=== PATIENT | male | born 1955 | race Caucasian/White ===

== ENCOUNTER 2018-12-28 17:27 | Inpatient (IN) | payer MEDICARE, OTHER ==
[~2018-12-28] VITALS: Ht 177.8 cm; Wt 78.3 kg
[~2018-12-28 17:27] MED LIST: AMLO5TAB21 PO; ASPI-1264 PO; ATOR40TA PO; CLOP75TA35 PO; DEXL60CA3 PO; LISI-600 PO; METO50TA16 PO; MULT-964 PO; SERT-153 PO
[2018-12-28] MEDS ORDERED: LORazepam 1 MG tablet PO ONE ×2 (18:00)
[2018-12-28 18:04] LABS: D-DIMER 0.49 MG/L FEU (0-0.50)
[2018-12-28 18:07] LABS: ALANINE AMINOTRANSFERASE 28 U/L (12-78); ALBUMIN 3.7 G/DL (3.4-5.0); ALBUMIN/GLOBULIN RATIO 0.9 (1.1-1.5); ALKALINE PHOSPHATASE 95 IU/L (46-116); ANION GAP 14 (8-16); ASPARTATE AMINO TRANSFERASE 25 U/L (10-37); BILIRUBIN,TOTAL 0.9 MG/DL (0.1-1.0); BLOOD UREA NITROGEN 22 MG/DL (7-18); CALCIUM 6.3 MG/DL (8.5-10.1); CHLORIDE 102 MMOL/L (99-107); CREATININE 1.57 MG/DL (0.60-1.10); GLUCOSE 109 MG/DL (70-104); POTASSIUM 3.1 MMOL/L (3.5-5.1); SODIUM 144 MMOL/L (135-145); TOTAL CARBON DIOXIDE 28.1 MMOL/L (24-32); TOTAL PROTEIN 7.7 G/DL (6.4-8.2); eGFR 45 ML/MIN
[2018-12-28 18:09] LABS: BASOPHILS # (AUTO) 0.1 X10'3 (0-0.2); BASOPHILS % (AUTO) 1.3 % (0-1); EOSINOPHILS # (AUTO) 0.2 X10'3 (0-0.9); EOSINOPHILS % (AUTO) 1.5 % (0-6); HEMATOCRIT 36.5 % (42.0-52.0); HEMOGLOBIN 12.3 g/dl (14.0-17.9); LYMPHOCYTES # (AUTO) 2.8 X10'3 (1.1-4.8); LYMPHOCYTES % (AUTO) 27.4 % (21-51); MEAN CORPUSCULAR HEMOGLOBIN 28.6 PG (27.0-31.0); MEAN CORPUSCULAR HGB CONC 33.8 g/dL (33.0-36.5); MEAN CORPUSCULAR VOLUME 84.7 FL (78-98); MEAN PLATELET VOLUME 8.3 FL (7.4-10.4); MONOCYTES # (AUTO) 0.7 X10'3 (0-0.9); MONOCYTES % (AUTO) 6.9 % (2-12); NEUTROPHILS # (AUTO) 6.4 X10'3 (1.8-7.7); NEUTROPHILS % (AUTO) 62.9 % (42-75); PLATELET COUNT 313 X10'3 (140-440); RED BLOOD COUNT 4.31 X10'6 (4.70-6.10); RED CELL DISTRIBUTION WIDTH 17.4 % (11.5-14.5); WHITE BLOOD COUNT 10.2 X10'3 (4.5-11.0)
[2018-12-28 18:20] LABS: MAGNESIUM 0.5 MG/DL (1.5-2.4)
[2018-12-28] MEDS ORDERED: magnesium 4gm in 100ml NS 100 ML IV ONE (18:25)
[2018-12-28 19:11] LABS: PHOSPHORUS 5.6 MG/DL (2.3-4.5)
[2018-12-28] MEDS ORDERED: nitroGLYCERIN 0.4mg/hour patch TD ONE (19:35)
[2018-12-28] MEDS ORDERED: magnesium Cl slow-release 64mg tablet PO PRN (21:30)
[2018-12-28] MEDS ORDERED: magnesium hydroxide 30ml (MOM) UD suspension PO PRN (21:30)
[2018-12-28] MEDS ORDERED: potassium Cl 20 mEq SR tablet PO PRN (21:30)
[2018-12-28] MEDS ORDERED: potassium CL 10mEq/100ml bag 100 ML IV PRN ×2 (21:30)
[2018-12-28] MEDS ORDERED: mag hydrox/Alum hydrox/simeth 30ml oral suspension PO PRN (21:30)
[2018-12-28] MEDS ORDERED: acetaminophen 325mg tablet PO PRN ×2 (21:30)
[2018-12-28] MEDS ORDERED: magnesium 2GM in 50ml NS 50 ML IV PRN (21:30)
[2018-12-28] MEDS ORDERED: magnesium 4gm in 100ml NS 100 ML IV PRN (21:30)
[2018-12-28] MEDS ORDERED: ondansetron/PF 4mg/2ml inj IV PRN (21:30)
[2018-12-28] MEDS: potassium Cl 20 mEq SR tablet PO PRN (22:05)
[2018-12-28] MEDS: furosemide 20 MG/2 ML vial IV SCH (22:05)
[2018-12-28] MEDS ORDERED: APIX5TAB3 PO (22:39)
[2018-12-28] MEDS ORDERED: NITR0.4T51 SL (22:39)
[2018-12-28] MEDS ORDERED: ASPI-1265 PO (22:39)
[2018-12-28] MEDS ORDERED: CYCL-394 PO (22:39)
[2018-12-28] MEDS ORDERED: MELO-102 PO (22:39)
[2018-12-28] MEDS ORDERED: LOSA25TA96 PO (22:39)
[2018-12-28] MEDS ORDERED: ESOM40CA49 PO (22:39)
[2018-12-28 23:00] VITALS: BP 155/94
--- NOTE | 2018-12-28 23:00 | NUR ---
Patient in room PCU 3013. I have received report from Xuan DAVILA from ER and had the opportunity to ask questions and assume patient care; patient was brought up shortly after. All patient belongings in closet. Pocket knife was sent to [facility] safe, kaufman sent to the safe. Patient is comfortable in bed. Will continue to monitor.
--- NOTE | 2018-12-29 | NUR ---
Wound care and cloud services architect Consultations have been ordered. Non blanchable buttock cheeks have been pictured and placed in patient chart. Patient states he needs more services at home with meals, ADLs, and cooking. Also stating he may need transportation home for discharge.
[2018-12-29 00:07] LABS: MAGNESIUM 1.7 MG/DL (1.5-2.4)
[2018-12-29 02:00] VITALS: BP 137/79
[2018-12-29] MEDS: potassium Cl 20 mEq SR tablet PO PRN ×2 (02:15→07:29)
[2018-12-29 05:56] LABS: BASOPHILS # (AUTO) 0.1 X10'3 (0-0.2); BASOPHILS % (AUTO) 1.4 % (0-1); EOSINOPHILS # (AUTO) 0.2 X10'3 (0-0.9); EOSINOPHILS % (AUTO) 1.8 % (0-6); HEMATOCRIT 32.1 % (42.0-52.0); HEMOGLOBIN 10.9 g/dl (14.0-17.9); LYMPHOCYTES # (AUTO) 1.5 X10'3 (1.1-4.8); LYMPHOCYTES % (AUTO) 16.7 % (21-51); MEAN CORPUSCULAR HEMOGLOBIN 28.6 PG (27.0-31.0); MEAN CORPUSCULAR HGB CONC 34.1 g/dL (33.0-36.5); MEAN PLATELET VOLUME 8.2 FL (7.4-10.4); MONOCYTES # (AUTO) 0.7 X10'3 (0-0.9); MONOCYTES % (AUTO) 7.5 % (2-12); NEUTROPHILS # (AUTO) 6.6 X10'3 (1.8-7.7); NEUTROPHILS % (AUTO) 72.6 % (42-75); PLATELET COUNT 284 X10'3 (140-440); RED BLOOD COUNT 3.82 X10'6 (4.70-6.10); RED CELL DISTRIBUTION WIDTH 17.2 % (11.5-14.5); WHITE BLOOD COUNT 9.1 X10'3 (4.5-11.0)
[2018-12-29 06:00] VITALS: BP 123/77
--- NOTE | 2018-12-29 06:00 | NUR ---
Patient in room PCU 3013. I have received report from GIOVANNI Castillo and had the opportunity to ask questions and assume patient care.
[2018-12-29 06:05] LABS: ALBUMIN 3.2 G/DL (3.4-5.0); ANION GAP 10 (8-16); BLOOD UREA NITROGEN 22 MG/DL (7-18); BUN/CREATININE RATIO 16.2 (5.4-32.0); CALCIUM 6.5 MG/DL (8.5-10.1); CHLORIDE 106 MMOL/L (99-107); CHOL/HDL RATIO 2.8 (0.00-4.99); CHOLESTEROL 99 MG/DL (0-200); CREATININE 1.36 MG/DL (0.60-1.10); GLUCOSE 103 MG/DL (70-104); HDL CHOLESTEROL 36 MG/DL (35-60); LDL CHOLESTEROL 57 MG/DL (50-100); MAGNESIUM 1.3 MG/DL (1.5-2.4); POTASSIUM 3.4 MMOL/L (3.5-5.1); SODIUM 143 MMOL/L (135-145); TOTAL CARBON DIOXIDE 27.2 MMOL/L (24-32); TRIGLYCERIDES 63 MG/DL (20-135); eGFR 53 ML/MIN
--- NOTE | 2018-12-29 06:34 | NUR ---
Problems reprioritized. Patient report given, questions answered & plan of care reviewed with Viji DAVILA.
[2018-12-29] MEDS: furosemide 20 MG/2 ML vial IV SCH (07:34)
--- NOTE | 2018-12-29 07:42 | NUR ---
Angelito Bhatia Rm [id number] needs med rec completed. Requested Nexium do not substitute. page to LU[facility]
[2018-12-29] MEDS ORDERED: K and/or MAG REPLACEMENT MC SCH (08:00)
--- NOTE | 2018-12-29 09:24 | NUR ---
Mag and K replaced recheck labs ordered for 1300
--- NOTE | 2018-12-29 10:11 | NUR ---
Echo rhoda came to bedside to perform test, pt stated that he just had an ECHO and a stress test at Dr Reyna's office. Tech was going to check for test and follow up.
[2018-12-29 11:00] VITALS: BP 116/68
[2018-12-29] MEDS ORDERED: ISOS30TA6 PO (13:05)
[2018-12-29] MEDS ORDERED: SPIR25TA5 PO (13:05)
[2018-12-29 13:13] LABS: MAGNESIUM 2.3 MG/DL (1.5-2.4); POTASSIUM 3.4 MMOL/L (3.5-5.1)
--- NOTE | 2018-12-29 13:52 | NUR ---
Angelito Michelle Rm [id number] Potassium result @ 1300 is 3.4 Mag is 2.3 page to LUPE
--- NOTE | 2018-12-29 15:20 | NUR ---
pt was discharged to home instructed to follow up with PCP, and Dr Reyna. Medications were faxed to [facility]. All belongings were with pt and discharge papers were signed.
--- NOTE | 2018-12-29 15:26 | NUR ---
Pt is a patient of Dr Reyna and saw him last week. He will f/u with Maribell in 3 months.
== END 2018-12-29 15:01 | disposition home or self-care (01) | DRG 293 ==
LOC: ER 17:27 → ED HOLD 21:48 → PCU 3S 23:02
PROVIDERS: ADMIT Hospitalist; ATTEND Family Medicine
DX: I11.0 Hypertensive heart disease with heart failure (principal); I50.9 Heart failure, unspecified; E83.42 Hypomagnesemia; E87.6 Hypokalemia; E78.00 Pure hypercholesterolemia, unspecified; F12.90 Cannabis use, unspecified, uncomplicated; I25.10 Atherosclerotic heart disease of native coronary artery without angina pectoris; I48.91 Unspecified atrial fibrillation; K21.9 Gastro-esophageal reflux disease without esophagitis; F41.9 Anxiety disorder, unspecified; Z88.6 Allergy status to analgesic agent; I25.2 Old myocardial infarction; Z87.891 Personal history of nicotine dependence; Z90.49 Acquired absence of other specified parts of digestive tract; Z79.82 Long term (current) use of aspirin; Z95.1 Presence of aortocoronary bypass graft
CPT/HCPCS: 36415; 71045; 80048; 80053; 80061; 83735; 83880; 84100; 84132; 84484; 85025; 85379; 85610; 87081; 93005; 96365; 99285; G0378; J1940; J3475

== ENCOUNTER 2019-01-23 07:15 | Inpatient (IN) | payer MEDICARE, OTHER ==
[~2019-01-23] VITALS: Ht 177.8 cm; Wt 76.7 kg
[~2019-01-23 07:15] MED LIST changes: -AMLO5TAB21 PO; +AMLO5TAB4 PO; +APIX5TAB3 PO; +ASPI-1265 PO; +ATOR80TA PO; -CLOP75TA35 PO; +CYCL-394 PO; -DEXL60CA3 PO; +ESOM40CA PO; +ESOM40CA49 PO; +ISOS30TA6 PO; -LISI-600 PO; +LOSA100T3 PO; +LOSA25TA96 PO; +MAGN500C16 PO; +MELO-102 PO; +METO-477 PO; -MULT-964 PO; +NITR0.4T51 SL; -SERT-153 PO; +SPIR25TA5 PO
[2019-01-23] MEDS ORDERED: diltiazem 5mg/ml 5ml inj. IV ONE (07:25)
[2019-01-23 07:54] LABS: BASOPHILS # (AUTO) 0.2 X10'3 (0-0.2); BASOPHILS % (AUTO) 1.4 % (0-1); EOSINOPHILS # (AUTO) 0.2 X10'3 (0-0.9); EOSINOPHILS % (AUTO) 1.9 % (0-6); HEMATOCRIT 36.9 % (42.0-52.0); LYMPHOCYTES # (AUTO) 1.7 X10'3 (1.1-4.8); LYMPHOCYTES % (AUTO) 15.6 % (21-51); MEAN CORPUSCULAR HEMOGLOBIN 27.9 PG (27.0-31.0); MEAN CORPUSCULAR HGB CONC 32.5 g/dL (33.0-36.5); MEAN CORPUSCULAR VOLUME 85.8 FL (78-98); MEAN PLATELET VOLUME 8.5 FL (7.4-10.4); MONOCYTES # (AUTO) 0.6 X10'3 (0-0.9); MONOCYTES % (AUTO) 5.5 % (2-12); NEUTROPHILS # (AUTO) 8.4 X10'3 (1.8-7.7); NEUTROPHILS % (AUTO) 75.6 % (42-75); PLATELET COUNT 262 X10'3 (140-440); RED CELL DISTRIBUTION WIDTH 16.6 % (11.5-14.5); WHITE BLOOD COUNT 11.1 X10'3 (4.5-11.0)
[2019-01-23 08:08] LABS: ALANINE AMINOTRANSFERASE 40 U/L (12-78); ALBUMIN 3.7 G/DL (3.4-5.0); ALKALINE PHOSPHATASE 83 IU/L (46-116); ANION GAP 11 (8-16); ASPARTATE AMINO TRANSFERASE 40 U/L (10-37); BILIRUBIN,TOTAL 0.9 MG/DL (0.1-1.0); BLOOD UREA NITROGEN 14 MG/DL (7-18); BUN/CREATININE RATIO 10.7 (5.4-32.0); CALCIUM 8.3 MG/DL (8.5-10.1); CHLORIDE 102 MMOL/L (99-107); CREATININE 1.31 MG/DL (0.60-1.10); GLUCOSE 122 MG/DL (70-104); POTASSIUM 4.4 MMOL/L (3.5-5.1); SODIUM 139 MMOL/L (135-145); TOTAL PROTEIN 7.3 G/DL (6.4-8.2); eGFR 55 ML/MIN
[2019-01-23 08:10] LABS: MAGNESIUM 0.9 MG/DL (1.5-2.4)
[2019-01-23] MEDS ORDERED: magnesium 2GM in 50ml NS 50 ML IV ONE (08:20)
[2019-01-23] MEDS ORDERED: potassium Cl 20 mEq SR tablet PO PRN ×2 (09:00)
[2019-01-23] MEDS ORDERED: magnesium 2GM in 50ml NS 50 ML IV PRN (09:00)
[2019-01-23] MEDS ORDERED: potassium CL 10mEq/100ml bag 100 ML IV PRN ×2 (09:00)
[2019-01-23] MEDS: K and/or MAG REPLACEMENT MC SCH (09:00)
[2019-01-23] MEDS ORDERED: ondansetron/PF 4mg/2ml inj IV PRN (09:00)
[2019-01-23] MEDS ORDERED: magnesium Cl slow-release 64mg tablet PO PRN (09:00)
[2019-01-23] MEDS ORDERED: magnesium 4gm in 100ml NS 100 ML IV PRN (09:00)
[2019-01-23] MEDS ORDERED: acetaminophen 325mg tablet PO PRN (09:00)
--- NOTE | 2019-01-23 10:00 | NUR ---
Patient in room MED 314. I have received report from GIOVANNI Bernal and had the opportunity to ask questions and assume patient care.
[2019-01-23 10:30] VITALS: BP 151/95
[2019-01-23] MEDS ORDERED: LISI-600 PO (13:01)
[2019-01-23] MEDS ORDERED: POTA500P42 PO (13:03)
[2019-01-23] MEDS ORDERED: CARV25TA2 PO (13:04)
[2019-01-23] MEDS ORDERED: SPIR25TA5 PO (13:54)
[2019-01-23 15:00] VITALS: BP 134/79
--- NOTE | 2019-01-23 17:13 | NUR ---
I have reviewed and agree with all interventions, assessments performed and documented by GIOVANNI Mcarthur.
[2019-01-23 18:00] VITALS: BP 164/77
--- NOTE | 2019-01-23 18:36 | NUR ---
Problems reprioritized. Patient report given, questions answered & plan of care reviewed with GIOVANNI Perdue.
--- NOTE | 2019-01-23 19:37 | NUR ---
Patient in room MED 314. I have received report from Perla Gilliland and had the opportunity to ask questions and assume patient care.
[2019-01-23] MEDS ORDERED: atorvastatin 20mg tablet PO ONE (20:30)
[2019-01-23] MEDS ORDERED: carVEDilol 12.5mg tablet PO ONE (20:30)
[2019-01-23 22:00] VITALS: BP 144/97
[2019-01-24] VITALS (7 sets, daily range): BP systolic 118–153; BP diastolic 68–90
[2019-01-24 04:40] LABS: BASOPHILS # (AUTO) 0.1 X10'3 (0-0.2); EOSINOPHILS # (AUTO) 0.2 X10'3 (0-0.9); HEMATOCRIT 31.7 % (42.0-52.0); HEMOGLOBIN 10.6 g/dl (14.0-17.9); LYMPHOCYTES # (AUTO) 1.7 X10'3 (1.1-4.8); LYMPHOCYTES % (AUTO) 18.6 % (21-51); MEAN CORPUSCULAR HEMOGLOBIN 28.1 PG (27.0-31.0); MEAN CORPUSCULAR HGB CONC 33.6 g/dL (33.0-36.5); MEAN CORPUSCULAR VOLUME 83.9 FL (78-98); MONOCYTES # (AUTO) 0.7 X10'3 (0-0.9); MONOCYTES % (AUTO) 7.4 % (2-12); NEUTROPHILS # (AUTO) 6.6 X10'3 (1.8-7.7); PLATELET COUNT 215 X10'3 (140-440); RED BLOOD COUNT 3.78 X10'6 (4.70-6.10); RED CELL DISTRIBUTION WIDTH 16.7 % (11.5-14.5); WHITE BLOOD COUNT 9.3 X10'3 (4.5-11.0)
[2019-01-24 04:50] LABS: ALBUMIN 3.2 G/DL (3.4-5.0); ANION GAP 9 (8-16); BLOOD UREA NITROGEN 26 MG/DL (7-18); BUN/CREATININE RATIO 24.8 (5.4-32.0); CALCIUM 8.6 MG/DL (8.5-10.1); CHLORIDE 104 MMOL/L (99-107); CREATININE 1.05 MG/DL (0.60-1.10); GLUCOSE 102 MG/DL (70-104); POTASSIUM 4.3 MMOL/L (3.5-5.1); SODIUM 139 MMOL/L (135-145); TOTAL CARBON DIOXIDE 26.2 MMOL/L (24-32); eGFR 71 ML/MIN
--- NOTE | 2019-01-24 06:28 | NUR ---
Problems reprioritized. Patient report given, questions answered & plan of care reviewed with Perla DAVILA.
--- NOTE | 2019-01-24 06:56 | NUR ---
Patient in room MED 314. I have received report from GIOVANNI Perdue and had the opportunity to ask questions and assume patient care.
[2019-01-24] MEDS: K and/or MAG REPLACEMENT MC SCH (08:00)
[2019-01-24] MEDS ORDERED: carVEDilol 12.5mg tablet PO SCH (08:15)
[2019-01-24] MEDS: potassium Cl 20 mEq SR tablet PO SCH (09:20)
[2019-01-24] MEDS: digoxin 250mcg (0.25mg) tablet PO SCH (09:25)
[2019-01-24] MEDS: furosemide 20 MG/2 ML vial IV SCH ×2 (09:26→20:54)
[2019-01-24] MEDS ORDERED: nitroGLYCERIN 0.4mg SUBLingual tab SL PRN (17:05)
[2019-01-24] MEDS ORDERED: losartan 25mg tablet PO SCH (17:05)
[2019-01-24] MEDS: isosorbide mononitrate 30mg tab.SR.24H PO SCH (19:22)
[2019-01-24] MEDS: aspirin 81mg tab.chew PO SCH (19:22)
[2019-01-24] MEDS: lisinopril 20mg tablet PO SCH (19:23)
[2019-01-24] MEDS: spironolactone 25 MG tablet PO SCH (19:23)
--- NOTE | 2019-01-24 19:30 | NUR ---
Problems reprioritized. Patient report given, questions answered & plan of care reviewed with GIOVANNI Begum.
[2019-01-24] MEDS: carVEDilol 12.5mg tablet PO SCH (20:53)
[2019-01-24] MEDS: apixaban 5mg tablet PO SCH (20:53)
[2019-01-24] MEDS ORDERED: atorvastatin 20mg tablet PO SCH (21:00)
[2019-01-25 03:07] VITALS: BP 135/73
[2019-01-25 05:01] LABS: BASOPHILS # (AUTO) 0.1 X10'3 (0-0.2); BASOPHILS % (AUTO) 1.1 % (0-1); EOSINOPHILS # (AUTO) 0.3 X10'3 (0-0.9); EOSINOPHILS % (AUTO) 3.1 % (0-6); HEMATOCRIT 32.7 % (42.0-52.0); HEMOGLOBIN 11.1 g/dl (14.0-17.9); LYMPHOCYTES # (AUTO) 1.7 X10'3 (1.1-4.8); LYMPHOCYTES % (AUTO) 20.8 % (21-51); MEAN CORPUSCULAR HEMOGLOBIN 28.7 PG (27.0-31.0); MEAN CORPUSCULAR HGB CONC 34.1 g/dL (33.0-36.5); MEAN CORPUSCULAR VOLUME 84.3 FL (78-98); MEAN PLATELET VOLUME 8.1 FL (7.4-10.4); MONOCYTES # (AUTO) 0.7 X10'3 (0-0.9); MONOCYTES % (AUTO) 8.6 % (2-12); NEUTROPHILS # (AUTO) 5.5 X10'3 (1.8-7.7); NEUTROPHILS % (AUTO) 66.4 % (42-75); PLATELET COUNT 218 X10'3 (140-440); RED BLOOD COUNT 3.88 X10'6 (4.70-6.10); RED CELL DISTRIBUTION WIDTH 16.6 % (11.5-14.5); WHITE BLOOD COUNT 8.3 X10'3 (4.5-11.0)
[2019-01-25 05:18] LABS: ALBUMIN 3.4 G/DL (3.4-5.0); ANION GAP 12 (8-16); CALCIUM 8.7 MG/DL (8.5-10.1); CHLORIDE 102 MMOL/L (99-107); CREATININE 1.02 MG/DL (0.60-1.10); GLUCOSE 92 MG/DL (70-104); MAGNESIUM 1.6 MG/DL (1.5-2.4); SODIUM 139 MMOL/L (135-145); TOTAL CARBON DIOXIDE 25.2 MMOL/L (24-32); eGFR 73 ML/MIN
[2019-01-25 05:22] LABS: BLOOD UREA NITROGEN 27 MG/DL (7-18); BUN/CREATININE RATIO 26.5 (5.4-32.0)
--- NOTE | 2019-01-25 06:20 | NUR ---
Problems reprioritized. Patient report given, questions answered & plan of care reviewed with Hao DAVILA. Bedside report completed.
--- NOTE | 2019-01-25 06:21 | NUR ---
Patient in room MED 314. I have received report from Kel DAVILA and had the opportunity to ask questions and assume patient care.
[2019-01-25 06:29] VITALS: BP 147/84
[2019-01-25] MEDS ORDERED: pantoprazole 40mg Tablet.DR PO SCH (07:30)
[2019-01-25] MEDS: K and/or MAG REPLACEMENT MC SCH (08:00)
[2019-01-25] MEDS ORDERED: magnesium oxide 400mg tablet PO SCH (08:00)
[2019-01-25] MEDS ORDERED: losartan 50mg tablet PO SCH (08:00)
[2019-01-25] MEDS: isosorbide mononitrate 30mg tab.SR.24H PO SCH (08:56)
[2019-01-25] MEDS: spironolactone 25 MG tablet PO SCH (08:56)
[2019-01-25] MEDS: aspirin 81mg tab.chew PO SCH (08:56)
[2019-01-25] MEDS: potassium Cl 20 mEq SR tablet PO SCH (08:59)
[2019-01-25] MEDS: lisinopril 20mg tablet PO SCH (08:59)
[2019-01-25] MEDS: furosemide 20 MG/2 ML vial IV SCH (09:02)
[2019-01-25] MEDS: digoxin 250mcg (0.25mg) tablet PO SCH (09:02)
[2019-01-25] MEDS: apixaban 5mg tablet PO SCH (09:02)
[2019-01-25] MEDS: carVEDilol 12.5mg tablet PO SCH (09:03)
[2019-01-25 11:00] VITALS: BP 107/59
[2019-01-25] MEDS ORDERED: FURO-150 PO (11:18)
--- NOTE | 2019-01-25 13:00 | NUR ---
Discussed discharge instructions with patient, verbalized understanding. Tele dc'd , IV dc'd. Belongings sent with patient. Discharged without event via W/C and [facility] staff. P.T. evaluated patient and stated their oxygen dropped to 85% on RA, and it took 1 minute to recover oxygen above 93%, however patient refused to be on oxygen after education. Patient eager to go home to see dogs. Will follow up and make appointment for patient on tuesday after the holiday for Dr. Corrales.
--- NOTE | 2019-01-25 13:05 | NUR ---
Called [employer], they will pick patient up from main lobby.
== END 2019-01-25 13:00 | disposition home health service (06) | DRG 308 ==
LOC: ER 07:16 → ED HOLD 08:57 → MED 3N 10:25
PROVIDERS: ADMIT Internal Medicine; ATTEND Internal Medicine
DX: I48.91 Unspecified atrial fibrillation (principal); I50.23 Acute on chronic systolic (congestive) heart failure; I25.810 Atherosclerosis of coronary artery bypass graft(s) without angina pectoris; E83.42 Hypomagnesemia; E78.5 Hyperlipidemia, unspecified; E78.00 Pure hypercholesterolemia, unspecified; K21.9 Gastro-esophageal reflux disease without esophagitis; J44.9 Chronic obstructive pulmonary disease, unspecified; F12.90 Cannabis use, unspecified, uncomplicated; F41.9 Anxiety disorder, unspecified; G89.29 Other chronic pain; I11.0 Hypertensive heart disease with heart failure; I25.10 Atherosclerotic heart disease of native coronary artery without angina pectoris; I25.2 Old myocardial infarction; Z79.01 Long term (current) use of anticoagulants; Z79.899 Other long term (current) drug therapy; Z90.49 Acquired absence of other specified parts of digestive tract; Z95.810 Presence of automatic (implantable) cardiac defibrillator; Z88.5 Allergy status to narcotic agent
CPT/HCPCS: 36415; 71045; 80048; 80053; 83735; 83880; 84484; 85025; 85610; 87081; 93005; 93306; 96365; 96375; 97116; 97161; 99285; G0378; J1940; J3475; J3490

== ENCOUNTER 2019-02-24 18:50 | Inpatient (IN) | payer MEDICARE, OTHER ==
[~2019-02-24] VITALS: Ht 175.3 cm; Wt 78.0 kg
[~2019-02-24 18:50] MED LIST changes: -AMLO5TAB4 PO; -ASPI-1264 PO; -ATOR40TA PO; +CARV25TA2 PO; -CYCL-394 PO; -ESOM40CA PO; +FURO-150 PO; -ISOS30TA6 PO; +LISI-600 PO; -LOSA25TA96 PO; -METO-477 PO; -METO50TA16 PO; +POTA500P42 PO
[2019-02-24 19:43] LABS: BASOPHILS # (AUTO) 0.1 X10'3 (0-0.2); BASOPHILS % (AUTO) 0.7 % (0-1); EOSINOPHILS # (AUTO) 0.4 X10'3 (0-0.9); EOSINOPHILS % (AUTO) 4.2 % (0-6); HEMATOCRIT 36.9 % (42.0-52.0); HEMOGLOBIN 12.4 g/dl (14.0-17.9); LYMPHOCYTES # (AUTO) 1.7 X10'3 (1.1-4.8); LYMPHOCYTES % (AUTO) 19.7 % (21-51); MEAN CORPUSCULAR HEMOGLOBIN 28.3 PG (27.0-31.0); MEAN CORPUSCULAR HGB CONC 33.6 g/dL (33.0-36.5); MEAN CORPUSCULAR VOLUME 84.4 FL (78-98); MEAN PLATELET VOLUME 8.4 FL (7.4-10.4); MONOCYTES # (AUTO) 0.8 X10'3 (0-0.9); MONOCYTES % (AUTO) 9.2 % (2-12); NEUTROPHILS # (AUTO) 5.8 X10'3 (1.8-7.7); NEUTROPHILS % (AUTO) 66.2 % (42-75); PLATELET COUNT 276 X10'3 (140-440); RED BLOOD COUNT 4.37 X10'6 (4.70-6.10); RED CELL DISTRIBUTION WIDTH 15.8 % (11.5-14.5); WHITE BLOOD COUNT 8.8 X10'3 (4.5-11.0)
[2019-02-24 19:59] LABS: ALANINE AMINOTRANSFERASE 28 U/L (12-78); ALBUMIN 3.9 G/DL (3.4-5.0); ALBUMIN/GLOBULIN RATIO 1.1 (1.1-1.5); ALKALINE PHOSPHATASE 92 IU/L (46-116); ANION GAP 7 (8-16); ASPARTATE AMINO TRANSFERASE 17 U/L (10-37); BILIRUBIN,TOTAL 0.7 MG/DL (0.1-1.0); BLOOD UREA NITROGEN 19 MG/DL (7-18); BUN/CREATININE RATIO 14.6 (5.4-32.0); CHLORIDE 99 MMOL/L (99-107); GLUCOSE 186 MG/DL (70-104); POTASSIUM 3.9 MMOL/L (3.5-5.1); SODIUM 135 MMOL/L (135-145); TOTAL CARBON DIOXIDE 29.5 MMOL/L (24-32); TOTAL PROTEIN 7.5 G/DL (6.4-8.2); eGFR 55 ML/MIN
[2019-02-24] MEDS ORDERED: methylPREDNISolone sod succ 125mg/2ml vial IV ONE (20:55)
[2019-02-24] MEDS ORDERED: albuterol 2.5 MG/3 ML nebule NEB ONE (20:55)
[2019-02-24 21:16] LABS: MAGNESIUM 1.8 MG/DL (1.5-2.4)
[2019-02-24] MEDS ORDERED: furosemide 10 MG/1 ML 10ml inj IV ONE (22:25)
[2019-02-24] MEDS ORDERED: azithromycin/NS 500mg/250ml 250 ML IV ONE (22:25)
[2019-02-24] MEDS ORDERED: acetaminophen 325mg tablet PO PRN ×2 (23:05)
[2019-02-24] MEDS ORDERED: mag hydrox/Alum hydrox/simeth 30ml oral suspension PO PRN (23:05)
[2019-02-24] MEDS ORDERED: potassium CL 10mEq/100ml bag 100 ML IV PRN ×2 (23:05)
[2019-02-24] MEDS ORDERED: magnesium hydroxide 30ml (MOM) UD suspension PO PRN (23:05)
[2019-02-24] MEDS ORDERED: potassium Cl 20 mEq SR tablet PO PRN ×2 (23:05)
[2019-02-24] MEDS ORDERED: ondansetron/PF 4mg/2ml inj IV PRN (23:05)
[2019-02-24] MEDS ORDERED: ipratropium/albuterol 3ml nebule NEB PRN (23:05)
[2019-02-24] MEDS ORDERED: magnesium Cl slow-release 64mg tablet PO PRN (23:05)
[2019-02-24] MEDS ORDERED: nitroGLYCERIN 0.4mg SUBLingual tab SL PRN (23:05)
[2019-02-24] MEDS ORDERED: magnesium 4gm in 100ml NS 100 ML IV PRN (23:05)
[2019-02-24] MEDS ORDERED: magnesium 2GM in 50ml NS 50 ML IV PRN (23:05)
[2019-02-24] MEDS ORDERED: HYDROcodone/acetaminophen 5mg/325mg tablet PO PRN (23:05)
[2019-02-24] MEDS ORDERED: morphine 2 MG/ML inj. syringe IV PRN ×2 (23:05)
[2019-02-25 00:30] VITALS: BP 115/85
--- NOTE | 2019-02-25 00:30 | NUR ---
Patient in room PCU 3028. I have received report from Massiel DAVILA and had the opportunity to ask questions and assume patient care.
--- NOTE | 2019-02-25 00:40 | NUR ---
Pt arrived via [facility] fr/ED in no acute distress. Amb to bed w/moderate exertional SOB. Oriented to bed, room, surroundings, and POC. Educated to ACS Protocol, timed lab draws, EKGs. Lungs auscultated for insp/exp wheezes and rhonchi. Cough is moist and nonproductive. Appears mildly anxious. Noted to have an irreg HR, Atrial Fibrillation in the 90s/min. VSS, O2 Sat 95% on RA. No skin issues noted w/2 RN skin check. No peripheral edema noted.
[2019-02-25 02:34] LABS: ALBUMIN 3.9 G/DL (3.4-5.0); ANION GAP 3 (8-16); BLOOD UREA NITROGEN 20 MG/DL (7-18); BUN/CREATININE RATIO 16.4 (5.4-32.0); CALCIUM 9.2 MG/DL (8.5-10.1); CHLORIDE 102 MMOL/L (99-107); CREATININE 1.22 MG/DL (0.60-1.10); GLUCOSE 165 MG/DL (70-104); MAGNESIUM 1.6 MG/DL (1.5-2.4); POTASSIUM 4.1 MMOL/L (3.5-5.1); SODIUM 138 MMOL/L (135-145); TOTAL CARBON DIOXIDE 33.3 MMOL/L (24-32); eGFR 60 ML/MIN
[2019-02-25 03:00] VITALS: BP 98/53
--- NOTE | 2019-02-25 06:06 | NUR ---
Patient in room PCU 3028. I have received report from GIOVANNI Miramontes and had the opportunity to ask questions and assume patient care.
[2019-02-25 06:58] VITALS: BP 125/88
--- NOTE | 2019-02-25 07:45 | NUR ---
Problems reprioritized. Patient report given, questions answered & plan of care reviewed with Monica Solorzano RN.
[2019-02-25] MEDS: ipratropium/albuterol 3ml nebule NEB SCH ×2 (07:50→11:10)
[2019-02-25] MEDS ORDERED: predniSONE 20 mg tablet PO SCH ×2 (08:00→08:30)
[2019-02-25] MEDS ORDERED: furosemide 40mg/4ml inj IV SCH (08:00)
[2019-02-25] MEDS ORDERED: apixaban 5mg tablet PO SCH (08:00)
[2019-02-25] MEDS ORDERED: lactobacillus rhamnosus 10,000 MMU CELLS/CAPSULE PO SCH (08:00)
[2019-02-25] MEDS ORDERED: azithromycin/NS 500mg/250ml 250 ML IV SCH (08:00)
[2019-02-25] MEDS ORDERED: K and/or MAG REPLACEMENT MC SCH (08:00)
[2019-02-25] MEDS ORDERED: nicotine 14mg patch - 24hr TD SCH (08:00)
[2019-02-25 08:13] LABS: BASOPHILS % (AUTO) 0.6 % (0-1); EOSINOPHILS % (AUTO) 0.1 % (0-6); HEMATOCRIT 38.7 % (42.0-52.0); HEMOGLOBIN 13.1 g/dl (14.0-17.9); LYMPHOCYTES # (AUTO) 0.6 X10'3 (1.1-4.8); MEAN CORPUSCULAR HEMOGLOBIN 28.2 PG (27.0-31.0); MEAN CORPUSCULAR HGB CONC 33.8 g/dL (33.0-36.5); MEAN CORPUSCULAR VOLUME 83.4 FL (78-98); MEAN PLATELET VOLUME 8.6 FL (7.4-10.4); MONOCYTES # (AUTO) 0.1 X10'3 (0-0.9); MONOCYTES % (AUTO) 1.3 % (2-12); NEUTROPHILS # (AUTO) 6.9 X10'3 (1.8-7.7); PLATELET COUNT 269 X10'3 (140-440); RED BLOOD COUNT 4.65 X10'6 (4.70-6.10); RED CELL DISTRIBUTION WIDTH 16.1 % (11.5-14.5); WHITE BLOOD COUNT 7.7 X10'3 (4.5-11.0)
[2019-02-25] MEDS ORDERED: BUDE10.22 INH (10:52)
[2019-02-25] MEDS ORDERED: LACT1CAP26 PO (10:52)
[2019-02-25] MEDS ORDERED: LEVO500T89 PO (10:52)
[2019-02-25] MEDS ORDERED: ALBU8.5H8 INH (10:52)
[2019-02-25] MEDS ORDERED: PRED10TA23 PO (10:52)
[2019-02-25] MEDS ORDERED: FURO40TA4 PO (10:53)
--- NOTE | 2019-02-25 13:55 | NUR ---
Patient stable for discharge per MD. Discharge instructions and education given to patient. All questions and concerns addressed. [facility] Tele monitor removed and retuned to television mechanic. PIV d/c'd, catheter intact. Patient transported off unit via [facility]. [employer] called for transport to home.
== END 2019-02-25 13:47 | disposition home health service (06) | DRG 190 ==
LOC: ER 18:51 → ED HOLD 23:05 → PCU 3S 02-25 00:40
PROVIDERS: ADMIT Hospitalist; ATTEND Hospitalist
DX: J44.1 Chronic obstructive pulmonary disease with (acute) exacerbation (principal); I50.23 Acute on chronic systolic (congestive) heart failure; I42.0 Dilated cardiomyopathy; I11.0 Hypertensive heart disease with heart failure; E78.00 Pure hypercholesterolemia, unspecified; E78.5 Hyperlipidemia, unspecified; E86.0 Dehydration; F12.90 Cannabis use, unspecified, uncomplicated; F41.9 Anxiety disorder, unspecified; K21.9 Gastro-esophageal reflux disease without esophagitis; F17.210 Nicotine dependence, cigarettes, uncomplicated; G47.9 Sleep disorder, unspecified; I25.10 Atherosclerotic heart disease of native coronary artery without angina pectoris; I48.91 Unspecified atrial fibrillation; Z66 Do not resuscitate; Z79.01 Long term (current) use of anticoagulants; Z81.1 Family history of alcohol abuse and dependence; Z82.0 Family history of epilepsy and other diseases of the nervous system; I25.2 Old myocardial infarction; Z88.7 Allergy status to serum and vaccine; Z90.49 Acquired absence of other specified parts of digestive tract; Z95.1 Presence of aortocoronary bypass graft; Z95.810 Presence of automatic (implantable) cardiac defibrillator; Z88.5 Allergy status to narcotic agent; Z79.899 Other long term (current) drug therapy; Z79.82 Long term (current) use of aspirin
CPT/HCPCS: 36415; 71046; 80048; 80053; 83605; 83735; 83880; 84484; 85025; 87040; 87081; 93005; 93308; 94640; 94667; 94760; 96374; 96375; 99285; G0378; J0456; J1940; J2930; J7512

== ENCOUNTER 2019-05-04 07:49 | Inpatient (IN) | payer MEDICARE, OTHER ==
[~2019-05-04] VITALS: Ht 177.8 cm; Wt 77.3 kg
[~2019-05-04 07:49] MED LIST changes: +ALBU8.5H8 INH; +BUDE10.22 INH; -FURO-150 PO; +FURO40TA4 PO; +LACT1CAP26 PO; -MELO-102 PO
[2019-05-04] MEDS ORDERED: dexamethasone sod phosphate 10mg/ml inj IV STA (08:38)
[2019-05-04] MEDS ORDERED: ipratropium/albuterol 3ml nebule NEB ONE (08:40)
[2019-05-04 09:01] LABS: BASOPHILS # (AUTO) 0.1 X10'3 (0-0.2); BASOPHILS % (AUTO) 0.7 % (0-1); EOSINOPHILS # (AUTO) 0.1 X10'3 (0-0.9); EOSINOPHILS % (AUTO) 0.6 % (0-6); HEMATOCRIT 34.4 % (42.0-52.0); HEMOGLOBIN 11.3 g/dl (14.0-17.9); LYMPHOCYTES % (AUTO) 7.6 % (21-51); MEAN CORPUSCULAR HEMOGLOBIN 26.8 PG (27.0-31.0); MEAN CORPUSCULAR HGB CONC 32.9 g/dL (33.0-36.5); MEAN CORPUSCULAR VOLUME 81.7 FL (78-98); MEAN PLATELET VOLUME 8.7 FL (7.4-10.4); MONOCYTES # (AUTO) 1.4 X10'3 (0-0.9); MONOCYTES % (AUTO) 10.2 % (2-12); NEUTROPHILS # (AUTO) 10.8 X10'3 (1.8-7.7); NEUTROPHILS % (AUTO) 80.9 % (42-75); PLATELET COUNT 287 X10'3 (140-440); RED BLOOD COUNT 4.21 X10'6 (4.70-6.10); RED CELL DISTRIBUTION WIDTH 15.9 % (11.5-14.5); WHITE BLOOD COUNT 13.3 X10'3 (4.5-11.0)
[2019-05-04 09:12] LABS: PARTIAL THROMBOPLASTIN TIME 38 SECONDS (22-32)
[2019-05-04 09:21] LABS: ALANINE AMINOTRANSFERASE 14 U/L (12-78); ALBUMIN 3.3 G/DL (3.4-5.0); ALBUMIN/GLOBULIN RATIO 0.9 (1.1-1.5); ALKALINE PHOSPHATASE 68 IU/L (46-116); ANION GAP 9 (8-16); ASPARTATE AMINO TRANSFERASE 14 U/L (10-37); BILIRUBIN,TOTAL 2.1 MG/DL (0.1-1.0); BLOOD UREA NITROGEN 14 MG/DL (7-18); CALCIUM 8.2 MG/DL (8.5-10.1); CHLORIDE 101 MMOL/L (99-107); CREATININE 1.17 MG/DL (0.60-1.10); GLUCOSE 110 MG/DL (70-104); SODIUM 140 MMOL/L (135-145); TOTAL CARBON DIOXIDE 30.2 MMOL/L (24-32); TOTAL PROTEIN 7.1 G/DL (6.4-8.2); eGFR 63 ML/MIN
[2019-05-04 09:22] LABS: POTASSIUM 2.9 MMOL/L (3.5-5.1)
[2019-05-04] MEDS ORDERED: magnesium oxide 400mg tablet PO ONE (09:35)
[2019-05-04] MEDS ORDERED: potassium Cl 20 mEq SR tablet PO STA (09:35)
[2019-05-04] MEDS ORDERED: potassium CL 10mEq/100ml bag 100 ML IV PRN ×2 (11:30)
[2019-05-04] MEDS ORDERED: acetaminophen 325mg tablet PO PRN (11:30)
[2019-05-04] MEDS ORDERED: magnesium 4gm in 100ml NS 100 ML IV PRN (11:30)
[2019-05-04] MEDS ORDERED: potassium Cl 20 mEq SR tablet PO PRN (11:30)
[2019-05-04] MEDS ORDERED: magnesium 2GM in 50ml NS 50 ML IV PRN (11:30)
[2019-05-04] MEDS ORDERED: ondansetron/PF 4mg/2ml inj IV PRN (11:30)
[2019-05-04] MEDS ORDERED: magnesium Cl slow-release 64mg tablet PO PRN (11:30)
[2019-05-04] MEDS ORDERED: FURO40TA4 PO (12:16)
[2019-05-04] MEDS ORDERED: ISOS60TA4 PO (12:16)
[2019-05-04] MEDS ORDERED: BUDE10.22 INH (12:16)
[2019-05-04] MEDS ORDERED: ALBU8.5H8 IH (12:17)
--- NOTE | 2019-05-04 14:52 | NUR ---
Patient admitted to PCU 3020 from ED. Report received on patient from Raiza in ED at 1440. Patient ambulated from ED gurney to bed in room. Oriented to room and call light use. Patient awake, alert, anxious and fatigued. Admit VS taken, stable at this time. Tele monitor applied, atrial fibrillation rate 90-110. No complaints of pain at this time. After arrival to room, Dr. Martinez hospitalist at bedside to assess patient. Patient given snack and water, no complaints at this time. Will continue to monitor.
[2019-05-04 14:55] VITALS: BP 144/94
[2019-05-04] MEDS ORDERED: ipratropium/albuterol 3ml nebule NEB PRN (16:00)
[2019-05-04] MEDS ORDERED: furosemide 40mg/4ml inj IV ONE (16:00)
[2019-05-04] MEDS: levoFLOXACIN-Levaquin 500mg/D5 100 ML IV SCH (16:27)
[2019-05-04] MEDS: potassium Cl 20 mEq SR tablet PO PRN (16:27)
[2019-05-04] MEDS: ipratropium/albuterol 3ml nebule NEB SCH ×3 (16:33→23:26)
[2019-05-04 18:00] VITALS: BP 119/68
--- NOTE | 2019-05-04 18:17 | NUR ---
Problems reprioritized. Patient report given, questions answered & plan of care reviewed with Justen DAVILA.
--- NOTE | 2019-05-04 18:24 | NUR ---
Patient in room PCU 3020. I have received report from Gabi DAVILA and had the opportunity to ask questions and assume patient care.
[2019-05-04] MEDS: methylPREDNISolone sod succ/PF 40mg inj. IV SCH (19:13)
[2019-05-04] MEDS: apixaban 5mg tablet PO SCH (19:14)
[2019-05-04] MEDS: aspirin 81mg tab.chew PO SCH (19:14)
[2019-05-04] MEDS: carVEDilol 12.5mg tablet PO SCH (19:17)
[2019-05-04] MEDS: lisinopril 20mg tablet PO SCH (19:18)
[2019-05-04] MEDS: spironolactone 25 MG tablet PO SCH (19:18)
[2019-05-04] MEDS: K and/or MAG REPLACEMENT MC SCH (19:31)
--- NOTE | 2019-05-04 19:40 | NUR ---
Page Sent PAGER ID: [phone] MESSAGE: Pt Angelito Bhatia in [id number] here for SOB, exac. CHF/COPD. Critical low magnesium of 0.6 pt currently on K/Mg protocol.- Justen [phone]
[2019-05-04] MEDS ORDERED: heparin, porcine 5000 units/ml vial SQ SCH (20:00)
[2019-05-04] MEDS: atorvastatin 20mg tablet PO SCH (20:38)
[2019-05-04] MEDS: nicotine 7mg patch - 24hr TD SCH (20:39)
--- NOTE | 2019-05-04 20:44 | NUR ---
Page sent to Dr. Gonzalez regarding Mg of 0.6 notified MD pt on replacement protocol, administered Mg replacement per protocol.
[2019-05-04 22:00] VITALS: BP 112/72
[2019-05-04] MEDS ORDERED: diphenhydrAMINE 50 mg/ml inj IV PRN (22:00)
[2019-05-04] MEDS: Melatonin 3mg tablet PO PRN (22:18)
[2019-05-05 02:00] VITALS: BP 117/89
[2019-05-05] MEDS: potassium Cl 20 mEq SR tablet PO PRN (03:11)
[2019-05-05] MEDS: ipratropium/albuterol 3ml nebule NEB SCH ×6 (03:45→23:18)
[2019-05-05 06:00] VITALS: BP 117/71
--- NOTE | 2019-05-05 06:06 | NUR ---
Problems reprioritized. Patient report given, questions answered & plan of care reviewed with Gabi DAVILA.
--- NOTE | 2019-05-05 06:20 | NUR ---
Patient in room PCU 3020. I have received report from Justen DAVILA and had the opportunity to ask questions and assume patient care.
[2019-05-05 06:44] LABS: BASOPHILS % (AUTO) 0.3 % (0-1); EOSINOPHILS % (AUTO) 0 % (0-6); HEMATOCRIT 31.8 % (42.0-52.0); HEMOGLOBIN 10.8 g/dl (14.0-17.9); LYMPHOCYTES # (AUTO) 0.7 X10'3 (1.1-4.8); LYMPHOCYTES % (AUTO) 5.9 % (21-51); MEAN CORPUSCULAR HEMOGLOBIN 27.5 PG (27.0-31.0); MEAN CORPUSCULAR HGB CONC 33.9 g/dL (33.0-36.5); MEAN CORPUSCULAR VOLUME 81.2 FL (78-98); MEAN PLATELET VOLUME 8.6 FL (7.4-10.4); MONOCYTES # (AUTO) 0.5 X10'3 (0-0.9); MONOCYTES % (AUTO) 3.7 % (2-12); NEUTROPHILS # (AUTO) 11.1 X10'3 (1.8-7.7); NEUTROPHILS % (AUTO) 90.1 % (42-75); PLATELET COUNT 279 X10'3 (140-440); RED BLOOD COUNT 3.92 X10'6 (4.70-6.10); RED CELL DISTRIBUTION WIDTH 16.1 % (11.5-14.5); WHITE BLOOD COUNT 12.4 X10'3 (4.5-11.0)
[2019-05-05 06:59] LABS: ALBUMIN 2.8 G/DL (3.4-5.0); ANION GAP 7 (8-16); BLOOD UREA NITROGEN 26 MG/DL (7-18); BUN/CREATININE RATIO 21.1 (5.4-32.0); CHLORIDE 103 MMOL/L (99-107); CREATININE 1.23 MG/DL (0.60-1.10); GLUCOSE 150 MG/DL (70-104); MAGNESIUM 2.4 MG/DL (1.5-2.4); POTASSIUM 4.2 MMOL/L (3.5-5.1); SODIUM 137 MMOL/L (135-145); TOTAL CARBON DIOXIDE 26.9 MMOL/L (24-32); eGFR 59 ML/MIN
[2019-05-05 07:46] LABS: C DIFF ANTIGEN NEGATIVE (NEGATIVE); C DIFF SPECIMEN=DIARRHEA? ACCEPTABLE; C DIFFICILE TOXINS A&B NEGATIVE (Neg)
[2019-05-05] MEDS: K and/or MAG REPLACEMENT MC SCH ×2 (08:00→20:36)
[2019-05-05] MEDS: levoFLOXACIN-Levaquin 500mg/D5 100 ML IV SCH (08:16)
[2019-05-05] MEDS: methylPREDNISolone sod succ/PF 40mg inj. IV SCH ×2 (08:16→20:43)
[2019-05-05] MEDS: furosemide 40mg/4ml inj IV SCH ×2 (08:16→20:44)
[2019-05-05] MEDS: aspirin 81mg tab.chew PO SCH (08:17)
[2019-05-05] MEDS: lisinopril 20mg tablet PO SCH (08:17)
[2019-05-05] MEDS: carVEDilol 12.5mg tablet PO SCH ×2 (08:17→20:44)
[2019-05-05] MEDS: apixaban 5mg tablet PO SCH ×2 (08:17→20:44)
[2019-05-05] MEDS: spironolactone 25 MG tablet PO SCH (08:18)
[2019-05-05] MEDS: isosorbide mononitrate 30mg tab.SR.24H PO SCH (08:36)
[2019-05-05 11:00] VITALS: BP 104/48
[2019-05-05 15:00] VITALS: BP 104/59
--- NOTE | 2019-05-05 15:25 | NUR ---
Patient ambulated in hallway with RN, standby assist, ambulatory 50 feet with two pauses. Oxygen saturation consistently between 93-97% on RA. No complaints of chest pain or shortness of breath during walk, did become fatigued and requested to sit down.
[2019-05-05 18:00] VITALS: BP 107/63
--- NOTE | 2019-05-05 18:23 | NUR ---
Problems reprioritized. Patient report given, questions answered & plan of care reviewed with Justen DAVILA.
--- NOTE | 2019-05-05 18:26 | NUR ---
Patient in room PCU 3020. I have received report from Gabi DAVILA and had the opportunity to ask questions and assume patient care.
[2019-05-05] MEDS: atorvastatin 20mg tablet PO SCH (20:43)
[2019-05-05] MEDS: lactobacillus rhamnosus 10,000 MMU CELLS/CAPSULE PO SCH (20:44)
[2019-05-05] MEDS: nicotine 7mg patch - 24hr TD SCH (20:45)
[2019-05-05] MEDS: Melatonin 3mg tablet PO PRN (20:49)
[2019-05-05 22:00] VITALS: BP 101/61
[2019-05-06 02:00] VITALS: BP 131/76
[2019-05-06] MEDS: ipratropium/albuterol 3ml nebule NEB SCH ×4 (03:54→14:37)
--- NOTE | 2019-05-06 06:22 | NUR ---
Problems reprioritized. Patient report given, questions answered & plan of care reviewed with Monica DAVILA.
--- NOTE | 2019-05-06 06:28 | NUR ---
Patient in room PCU 3017. I have received report from Justen DAVILA and had the opportunity to ask questions and assume patient care. Patient is resting in bed at this time, unlabored respirations, will continue to monitor.
[2019-05-06 06:30] LABS: BASOPHILS % (AUTO) 0.1 % (0-1); EOSINOPHILS % (AUTO) 0 % (0-6); HEMATOCRIT 32.3 % (42.0-52.0); HEMOGLOBIN 10.8 g/dl (14.0-17.9); LYMPHOCYTES # (AUTO) 0.8 X10'3 (1.1-4.8); MEAN CORPUSCULAR HEMOGLOBIN 27.1 PG (27.0-31.0); MEAN CORPUSCULAR HGB CONC 33.4 g/dL (33.0-36.5); MEAN PLATELET VOLUME 8.5 FL (7.4-10.4); MONOCYTES # (AUTO) 0.6 X10'3 (0-0.9); MONOCYTES % (AUTO) 3.9 % (2-12); NEUTROPHILS # (AUTO) 14.1 X10'3 (1.8-7.7); PLATELET COUNT 317 X10'3 (140-440); RED BLOOD COUNT 3.98 X10'6 (4.70-6.10); RED CELL DISTRIBUTION WIDTH 15.8 % (11.5-14.5); WHITE BLOOD COUNT 15.5 X10'3 (4.5-11.0)
[2019-05-06 06:32] LABS: ALBUMIN 2.8 G/DL (3.4-5.0); ANION GAP 8 (8-16); BLOOD UREA NITROGEN 36 MG/DL (7-18); BUN/CREATININE RATIO 29.3 (5.4-32.0); CALCIUM 8.1 MG/DL (8.5-10.1); CHLORIDE 103 MMOL/L (99-107); CREATININE 1.23 MG/DL (0.60-1.10); GLUCOSE 147 MG/DL (70-104); MAGNESIUM 1.8 MG/DL (1.5-2.4); POTASSIUM 3.6 MMOL/L (3.5-5.1); SODIUM 139 MMOL/L (135-145); TOTAL CARBON DIOXIDE 27.7 MMOL/L (24-32); eGFR 59 ML/MIN
[2019-05-06 07:00] VITALS: BP 108/62
[2019-05-06] MEDS: apixaban 5mg tablet PO SCH (07:57)
[2019-05-06] MEDS: furosemide 40mg/4ml inj IV SCH (07:57)
[2019-05-06] MEDS: carVEDilol 12.5mg tablet PO SCH (07:57)
[2019-05-06] MEDS: methylPREDNISolone sod succ/PF 40mg inj. IV SCH (07:57)
[2019-05-06] MEDS: spironolactone 25 MG tablet PO SCH (07:57)
[2019-05-06] MEDS: levoFLOXACIN-Levaquin 500mg/D5 100 ML IV SCH (07:57)
[2019-05-06] MEDS: aspirin 81mg tab.chew PO SCH (07:57)
[2019-05-06] MEDS: lactobacillus rhamnosus 10,000 MMU CELLS/CAPSULE PO SCH (07:57)
[2019-05-06] MEDS: lisinopril 20mg tablet PO SCH (07:58)
[2019-05-06] MEDS: isosorbide mononitrate 30mg tab.SR.24H PO SCH (07:58)
[2019-05-06] MEDS: nicotine 7mg patch - 24hr TD SCH (07:59)
[2019-05-06] MEDS: K and/or MAG REPLACEMENT MC SCH (08:00)
[2019-05-06] MEDS ORDERED: IPRA3AMP9 NEB (10:41)
[2019-05-06] MEDS ORDERED: LEVO500T2 PO (10:48)
[2019-05-06] MEDS ORDERED: PRED10TA23 PO (10:48)
[2019-05-06 11:00] VITALS: BP 97/58
[2019-05-06] MEDS ORDERED: magnesium hydroxide 30ml (MOM) UD suspension PO ONE (11:00)
--- NOTE | 2019-05-06 13:42 | NUR ---
promotional table spacer PAGER ID: [phone] MESSAGE: Rm [id number], Jannette. Patient has a medicare form that needs to be signed before discharge for new RX. Monica 73
--- NOTE | 2019-05-06 16:25 | NUR ---
Patient was discharged home by cab. Patient reviewed discharge packet before signing, all belongings sent with patient, PIV removed with cannula intact, tele monitoring removed. New RX faxed to pharmacy, Patient alert and oriented. Patient whelled down by staff and left via cab.
[2019-05-07] MEDS ORDERED: levoFLOXACIN 500mg tablet PO SCH (11:00)
--- NOTE | 2019-05-07 11:19 | NUR ---
case management DC follow up: spoke to pt via telephone: reports doing well. a little SOB upon exertion. "thank you so much for everything, everyone was so nice to me". Denies emergent SOB, cp, acute general pain, NV, dizziness. verbalizes understanding of meds, why prescribed, taking as ordered, no ase r/t polypharmacy. Verbalizes understanding of s/s that would warrant 9-11/ER visit for further evaluation. follow up for PCP 05/08/2019. needs met, questions answered at DC. No further questions at this time.
== END 2019-05-06 14:56 | disposition home or self-care (01) | DRG 190 ==
LOC: ER 07:49 → ED HOLD 11:26 → EDBEDREQ 14:15 → PCU 3S 14:52
PROVIDERS: ADMIT Internal Medicine; ATTEND Internal Medicine
DX: J44.1 Chronic obstructive pulmonary disease with (acute) exacerbation (principal); I50.23 Acute on chronic systolic (congestive) heart failure; I48.20 Chronic atrial fibrillation, unspecified; E78.00 Pure hypercholesterolemia, unspecified; E78.5 Hyperlipidemia, unspecified; E83.42 Hypomagnesemia; E87.6 Hypokalemia; F17.210 Nicotine dependence, cigarettes, uncomplicated; F41.9 Anxiety disorder, unspecified; K21.9 Gastro-esophageal reflux disease without esophagitis; F12.90 Cannabis use, unspecified, uncomplicated; I11.0 Hypertensive heart disease with heart failure; I25.10 Atherosclerotic heart disease of native coronary artery without angina pectoris; J06.9 Acute upper respiratory infection, unspecified; I25.2 Old myocardial infarction; Z90.49 Acquired absence of other specified parts of digestive tract; Z95.1 Presence of aortocoronary bypass graft; Z88.5 Allergy status to narcotic agent; Z95.0 Presence of cardiac pacemaker; Z81.8 Family history of other mental and behavioral disorders; Z81.1 Family history of alcohol abuse and dependence; Z79.899 Other long term (current) drug therapy
CPT/HCPCS: 36415; 71045; 80048; 80053; 83735; 83880; 84484; 85025; 85610; 85730; 87045; 87046; 87070; 87077; 87081; 87185; 87324; 87328; 87329; 87336; 87449; 87502; 87503; 89055; 93005; 94640; 94760; 96374; 99285; G0378; J1100; J1940; J1956; J2920; J3475

== ENCOUNTER 2019-05-29 03:06 | Observation (INO) | payer MEDICARE, OTHER ==
[~2019-05-29] VITALS: Ht 180.3 cm; Wt 168.0 kg
[~2019-05-29 03:06] MED LIST changes: +ALBU8.5H8 IH; -ALBU8.5H8 INH; +IPRA3AMP9 NEB; +ISOS60TA4 PO; -LACT1CAP26 PO; -LOSA100T3 PO; -MAGN500C16 PO; -POTA500P42 PO
--- NOTE | 2019-05-29 03:13 | NUR ---
RT PAGED FOR STAT BREATHING TX
[2019-05-29] MEDS ORDERED: albuterol 2.5 MG/3 ML nebule NEB ONE (03:15)
[2019-05-29] MEDS ORDERED: ipratropium/albuterol 3ml nebule NEB ONE (03:15)
[2019-05-29] MEDS ORDERED: methylPREDNISolone sod succ 125mg/2ml vial IV ONE (03:15)
[2019-05-29] MEDS ORDERED: albuterol 2.5 MG/3 ML nebule CONTNEB ONE (03:20)
[2019-05-29] MEDS ORDERED: ipratropium 0.5 MG/2.5ML nebule IH ONE (03:20)
[2019-05-29] MEDS ORDERED: magnesium 2GM in 50ml NS 50 ML IV ONE (03:25)
[2019-05-29 03:51] LABS: BASOPHILS % (AUTO) 0.3 % (0-1); EOSINOPHILS # (AUTO) 0.2 X10'3 (0-0.9); HEMATOCRIT 35.1 % (42.0-52.0)
[2019-05-29 03:53] LABS: EOSINOPHILS % (AUTO) 2.9 % (0-6); HEMOGLOBIN 11.7 g/dl (14.0-17.9); LYMPHOCYTES % (AUTO) 25.1 % (21-51); MEAN CORPUSCULAR HEMOGLOBIN 27.9 PG (27.0-31.0); MEAN CORPUSCULAR HGB CONC 33.3 g/dL (33.0-36.5); MEAN CORPUSCULAR VOLUME 83.6 FL (78-98); MEAN PLATELET VOLUME 8.6 FL (7.4-10.4); MONOCYTES # (AUTO) 0.8 X10'3 (0-0.9); NEUTROPHILS % (AUTO) 61.7 % (42-75); PLATELET COUNT 240 X10'3 (140-440); RED CELL DISTRIBUTION WIDTH 17.2 % (11.5-14.5); WHITE BLOOD COUNT 8.1 X10'3 (4.5-11.0)
[2019-05-29 04:06] LABS: ALANINE AMINOTRANSFERASE 20 U/L (12-78); ALBUMIN 3.3 G/DL (3.4-5.0); ALBUMIN/GLOBULIN RATIO 0.8 (1.1-1.5); ALKALINE PHOSPHATASE 72 IU/L (46-116); ANION GAP 10 (8-16); BILIRUBIN,TOTAL 1.2 MG/DL (0.1-1.0); BLOOD UREA NITROGEN 17 MG/DL (7-18); BUN/CREATININE RATIO 14.5 (5.4-32.0); CALCIUM 6.1 MG/DL (8.5-10.1); CHLORIDE 105 MMOL/L (99-107); CREATININE 1.17 MG/DL (0.60-1.10); GLUCOSE 106 MG/DL (70-104); SODIUM 143 MMOL/L (135-145); TOTAL CARBON DIOXIDE 27.8 MMOL/L (24-32); TOTAL PROTEIN 7.2 G/DL (6.4-8.2); eGFR 63 ML/MIN
[2019-05-29 04:07] LABS: ASPARTATE AMINO TRANSFERASE 25 U/L (10-37)
[2019-05-29 04:12] LABS: PLATELET ESTIMATE NORMAL
--- NOTE | 2019-05-29 04:12 | NUR ---
Patient's work of breathing has decreased and he reports feeling better.
[2019-05-29 04:13] LABS: ANISOCYTOSIS 1+; POIKILOCYTOSIS 2+
[2019-05-29 04:14] LABS: TROPONIN I < 0.04 NG/ML (0.0-0.05)
[2019-05-29 04:17] LABS: MAGNESIUM 0.3 MG/DL (1.5-2.4)
[2019-05-29] MEDS ORDERED: magnesium 4gm in 100ml NS 100 ML IV ONE (04:20)
[2019-05-29 04:56] LABS: PHOSPHORUS 4.9 MG/DL (2.3-4.5)
--- NOTE | 2019-05-29 05:13 | NUR ---
Patient resting comfortably. He is updated on POC. No requests at this time.
[2019-05-29] MEDS ORDERED: potassium CL 10mEq/100ml bag 100 ML IV PRN ×2 (05:50)
[2019-05-29] MEDS ORDERED: ondansetron/PF 4mg/2ml inj IV PRN (05:50)
[2019-05-29] MEDS ORDERED: magnesium Cl slow-release 64mg tablet PO PRN (05:50)
[2019-05-29] MEDS ORDERED: magnesium 4gm in 100ml NS 100 ML IV PRN (05:50)
[2019-05-29] MEDS ORDERED: magnesium 2GM in 50ml NS 50 ML IV PRN (05:50)
[2019-05-29] MEDS ORDERED: potassium Cl 20 mEq SR tablet PO PRN (05:50)
[2019-05-29] MEDS ORDERED: nitroGLYCERIN 0.4mg SUBLingual tab SL PRN ×2 (06:00→08:45)
[2019-05-29] MEDS ORDERED: aminophylline 250mg/10ml inj. IV PRN (06:00)
[2019-05-29] MEDS ORDERED: metoprolol tartrate 1mg/ml inj IV PRN (06:00)
[2019-05-29] MEDS ORDERED: regadenoson 0.4mg/5ml syringe IV ONE (06:00)
[2019-05-29 07:00] VITALS: BP 142/92
[2019-05-29] MEDS: K and/or MAG REPLACEMENT MC SCH ×2 (08:00→20:00)
[2019-05-29] MEDS ORDERED: LORazepam 0.5 MG tablet PO PRN (08:45)
[2019-05-29] MEDS ORDERED: ALBUTEROL INHALER 1 PUFF/90 MCG INHALER IH PRN (08:45)
[2019-05-29] MEDS ORDERED: albuterol 2.5 MG/3 ML nebule NEB PRN (09:00)
[2019-05-29] MEDS: budesonide 0.5mg/2ml UD nebule IH SCH ×2 (09:24→19:10)
[2019-05-29 10:00] VITALS: BP 119/50
[2019-05-29] MEDS: ipratropium/albuterol 3ml nebule NEB SCH ×4 (11:00→23:03)
[2019-05-29] MEDS: furosemide 40mg tablet PO SCH (11:14)
[2019-05-29] MEDS: aspirin 81mg tab.chew PO SCH (11:14)
[2019-05-29] MEDS: spironolactone 25 MG tablet PO SCH (11:14)
[2019-05-29] MEDS: lisinopril 20mg tablet PO SCH (11:15)
[2019-05-29] MEDS: nicotine 14mg patch - 24hr TD SCH (11:16)
[2019-05-29 18:00] VITALS: BP 138/75
--- NOTE | 2019-05-29 18:52 | NUR ---
RECEIVED REPORT FROM DESTINEY DAVILA AND ASSUMED PATIENT CARE
[2019-05-29] MEDS: acetaminophen 325mg tablet PO PRN (19:03)
[2019-05-29] MEDS: carVEDilol 12.5mg tablet PO SCH (20:33)
[2019-05-29] MEDS: apixaban 5mg tablet PO SCH (20:34)
[2019-05-29] MEDS ORDERED: atorvastatin 20mg tablet PO SCH (21:00)
[2019-05-30] MEDS: ipratropium/albuterol 3ml nebule NEB SCH ×3 (03:32→12:01)
[2019-05-30] MEDS: acetaminophen 325mg tablet PO PRN ×2 (03:50→10:58)
[2019-05-30 05:51] LABS: BASOPHILS % (AUTO) 0.2 % (0-1); EOSINOPHILS % (AUTO) 0 % (0-6); HEMATOCRIT 31.1 % (42.0-52.0); HEMOGLOBIN 10.5 g/dl (14.0-17.9); LYMPHOCYTES # (AUTO) 0.8 X10'3 (1.1-4.8); LYMPHOCYTES % (AUTO) 7.7 % (21-51); MEAN CORPUSCULAR HEMOGLOBIN 27.9 PG (27.0-31.0); MEAN CORPUSCULAR HGB CONC 33.8 g/dL (33.0-36.5); MEAN CORPUSCULAR VOLUME 82.5 FL (78-98); MEAN PLATELET VOLUME 8.3 FL (7.4-10.4); MONOCYTES # (AUTO) 0.8 X10'3 (0-0.9); MONOCYTES % (AUTO) 7.8 % (2-12); NEUTROPHILS # (AUTO) 8.7 X10'3 (1.8-7.7); NEUTROPHILS % (AUTO) 84.3 % (42-75); PLATELET COUNT 252 X10'3 (140-440); RED BLOOD COUNT 3.77 X10'6 (4.70-6.10); RED CELL DISTRIBUTION WIDTH 16.5 % (11.5-14.5); WHITE BLOOD COUNT 10.4 X10'3 (4.5-11.0)
[2019-05-30 06:06] LABS: ALBUMIN 2.8 G/DL (3.4-5.0); ANION GAP 8 (8-16); BLOOD UREA NITROGEN 25 MG/DL (7-18); CALCIUM 6.8 MG/DL (8.5-10.1); CHLORIDE 105 MMOL/L (99-107); CREATININE 1.04 MG/DL (0.60-1.10); GLUCOSE 141 MG/DL (70-104); MAGNESIUM 1.7 MG/DL (1.5-2.4); POTASSIUM 3.4 MMOL/L (3.5-5.1); SODIUM 141 MMOL/L (135-145); TOTAL CARBON DIOXIDE 27.7 MMOL/L (24-32); eGFR 72 ML/MIN
[2019-05-30 06:26] VITALS: BP 122/64
--- NOTE | 2019-05-30 06:33 | NUR ---
Patient in room ORTHO 4022. I have received report from Sheridan DAVILA and had the opportunity to ask questions and assume patient care.
[2019-05-30] MEDS ORDERED: pantoprazole 40mg Tablet.DR PO SCH (07:30)
[2019-05-30] MEDS: budesonide 0.5mg/2ml UD nebule IH SCH (07:34)
[2019-05-30] MEDS: potassium Cl 20 mEq SR tablet PO PRN ×2 (07:58→12:14)
[2019-05-30] MEDS: spironolactone 25 MG tablet PO SCH (08:05)
[2019-05-30] MEDS: carVEDilol 12.5mg tablet PO SCH (08:05)
[2019-05-30] MEDS: isosorbide mononitrate 30mg tab.SR.24H PO SCH ×2 (08:05→08:15)
[2019-05-30] MEDS: furosemide 40mg tablet PO SCH (08:05)
[2019-05-30] MEDS: apixaban 5mg tablet PO SCH (08:07)
[2019-05-30] MEDS: aspirin 81mg tab.chew PO SCH (08:07)
[2019-05-30] MEDS: lisinopril 20mg tablet PO SCH (08:07)
--- NOTE | 2019-05-30 08:15 | NUR ---
Malnutrition consult. Patient stated weight 168 lbs (weight in lbs in EMR entered as kg), BMI is 23, per documented weight history patient has no significant weight loss in the past year. Has great appetite, eating 75-100% of meals. No malnutrition. Will follow per policy. Addendum: 05/30/19 at [address] Amended: Links added.
[2019-05-30] MEDS: nicotine 14mg patch - 24hr TD SCH (08:17)
[2019-05-30 10:00] VITALS: BP 98/59
[2019-05-30] MEDS ORDERED: MAGN400C PO (13:27)
--- NOTE | 2019-05-30 15:07 | NUR ---
Paged Dr. Griggs and asked "May I reimplement the K+/Mg protocol for patient Doug Shreyas in room 4020B?"
--- NOTE | 2019-05-30 15:31 | NUR ---
pt to follow up w/ Dr. Reyna regarding episodes of low Mg every 3 mos. Pt has an appt next week already. Pt stated he had been taking approx 3-4 tabs of Mg 400 mg purchased over the internet. Educated pt of new RX Addendum: 05/30/19 at 1534 by Valerie Jimenez RN pt said he undrstands to d/c OTC Mg and take RX as prescribed by Dr. Thomas Addendum: 05/30/19 at 1536 by Valerie Jimenez RN Amended: Links added.
--- NOTE | 2019-05-31 14:15 | NUR ---
Case management DC follow up: spoke to pt via telephone: reports "feeling better" "everyone was so sweet at the hospital, appreciate everybody" Pt denies BLE cramping episodes since DC. Denies acute/continuous cp, emergent general pain, SOB as rest, resp distress, NV, dizziness, abd pain, ARCINIEGA, blurry vision. verbalizes understanding of s/s that would warrant 9-11/ER visit for evaluation. acknowledges need to follow up w/PCP Dominic, pt will call to schedule/ specialistMaribell 06/14/19 r/t electrolytes low mag aprox Q 3 mo. verbalizes understanding of new/continued meds & why prescribed; taking as ordered, no ase noted r/t polypharmacy. needs met, questions answered at DC, no further questions at this time.
== END 2019-05-30 14:30 | disposition home or self-care (01) ==
LOC: ER 03:06 → ED HOLD 05:46 → ORTHO 4S 07:30
PROVIDERS: ADMIT Internal Medicine; ATTEND Internal Medicine
DX: E83.42 Hypomagnesemia (principal); R07.89 Other chest pain; I11.0 Hypertensive heart disease with heart failure; I50.22 Chronic systolic (congestive) heart failure; I48.20 Chronic atrial fibrillation, unspecified; I25.10 Atherosclerotic heart disease of native coronary artery without angina pectoris; I25.2 Old myocardial infarction; E78.5 Hyperlipidemia, unspecified; F41.9 Anxiety disorder, unspecified; E78.00 Pure hypercholesterolemia, unspecified; J44.9 Chronic obstructive pulmonary disease, unspecified; Z87.891 Personal history of nicotine dependence; Z90.49 Acquired absence of other specified parts of digestive tract; Z95.1 Presence of aortocoronary bypass graft; Z79.82 Long term (current) use of aspirin; Z79.01 Long term (current) use of anticoagulants; Z79.899 Other long term (current) drug therapy; Z88.5 Allergy status to narcotic agent
CPT/HCPCS: 36415; 71045; 80048; 80053; 83735; 83880; 84100; 84145; 84484; 85025; 85610; 87081; 93005; 94640; 94760; 96365; 96366; 96375; 99285; G0378; J2930; J3475; J7626

== ENCOUNTER 2019-08-04 08:40 | Emergency (ER) | payer MEDICARE, OTHER ==
[~2019-08-04] VITALS: Ht 177.8 cm; Wt 77.3 kg
[~2019-08-04 08:40] MED LIST changes: +DIGO-16 PO; +LOPE-144 PO; +MAGN400C PO; +MAGN400T29 PO; +POTA2TAB17 PEG; -SPIR25TA5 PO
[2019-08-04 08:41] VITALS: BP 138/71
== END 2019-08-04 09:51 | disposition home or self-care (01) ==
LOC: ER 08:40
DX: M79.672 Pain in left foot (principal); R19.7 Diarrhea, unspecified; I25.10 Atherosclerotic heart disease of native coronary artery without angina pectoris; I50.9 Heart failure, unspecified; E78.00 Pure hypercholesterolemia, unspecified; I11.0 Hypertensive heart disease with heart failure; I25.2 Old myocardial infarction; K21.9 Gastro-esophageal reflux disease without esophagitis; F41.9 Anxiety disorder, unspecified; F12.90 Cannabis use, unspecified, uncomplicated; F17.200 Nicotine dependence, unspecified, uncomplicated; Z90.49 Acquired absence of other specified parts of digestive tract; Z95.0 Presence of cardiac pacemaker; Z95.1 Presence of aortocoronary bypass graft; Z98.890 Other specified postprocedural states; Z88.5 Allergy status to narcotic agent; Z79.82 Long term (current) use of aspirin; Z79.01 Long term (current) use of anticoagulants; Z79.899 Other long term (current) drug therapy
CPT/HCPCS: 73630; 99283

== ENCOUNTER 2019-08-19 17:39 | Emergency (ER) | payer MEDICARE, OTHER ==
[~2019-08-19] VITALS: Ht 172.7 cm; Wt 76.4 kg
[2019-08-19 19:22] LABS: ALANINE AMINOTRANSFERASE 19 U/L (12-78); ALBUMIN 3.5 G/DL (3.4-5.0); ALKALINE PHOSPHATASE 104 IU/L (46-116); ANION GAP 10 (8-16); ASPARTATE AMINO TRANSFERASE 15 U/L (10-37); BILIRUBIN,TOTAL 0.8 MG/DL (0.1-1.0); BLOOD UREA NITROGEN 13 MG/DL (7-18); BUN/CREATININE RATIO 9.2 (5.4-32.0); CALCIUM 7.8 MG/DL (8.5-10.1); CHLORIDE 104 MMOL/L (99-107); CREATININE 1.42 MG/DL (0.60-1.10); GLUCOSE 93 MG/DL (70-104); POTASSIUM 3.3 MMOL/L (3.5-5.1); SODIUM 144 MMOL/L (135-145); TOTAL CARBON DIOXIDE 30.3 MMOL/L (24-32); TOTAL PROTEIN 6.9 G/DL (6.4-8.2); eGFR 50 ML/MIN
[2019-08-19 19:25] LABS: MAGNESIUM 1.1 MG/DL (1.5-2.4); PHOSPHORUS 3.3 MG/DL (2.3-4.5)
[2019-08-19] MEDS ORDERED: potassium Cl 20 mEq SR tablet PO STA (19:41)
[2019-08-19] MEDS ORDERED: magnesium 2GM in 50ml NS 50 ML IV ONE (19:45)
[2019-08-19 21:30] VITALS: BP 134/73
== END 2019-08-19 21:32 | disposition home or self-care (01) ==
LOC: ER 17:41
DX: E87.6 Hypokalemia (principal); E83.42 Hypomagnesemia; F12.90 Cannabis use, unspecified, uncomplicated; I25.10 Atherosclerotic heart disease of native coronary artery without angina pectoris; I50.9 Heart failure, unspecified; E78.00 Pure hypercholesterolemia, unspecified; I11.0 Hypertensive heart disease with heart failure; I25.2 Old myocardial infarction; K21.9 Gastro-esophageal reflux disease without esophagitis; F41.9 Anxiety disorder, unspecified; Z72.89 Other problems related to lifestyle; Z90.49 Acquired absence of other specified parts of digestive tract; Z95.1 Presence of aortocoronary bypass graft; Z95.0 Presence of cardiac pacemaker; Z98.890 Other specified postprocedural states; Z79.01 Long term (current) use of anticoagulants; Z79.82 Long term (current) use of aspirin; Z79.899 Other long term (current) drug therapy
CPT/HCPCS: 36415; 80053; 83735; 84100; 96365; 96366; 99284; J3475

== ENCOUNTER 2019-10-16 07:57 | Emergency (ER) | payer MEDICARE, OTHER ==
[~2019-10-16] VITALS: Ht 172.7 cm; Wt 80.0 kg
[2019-10-16 08:45] LABS: BASOPHILS # (AUTO) 0.1 X10'3 (0-0.2); BASOPHILS % (AUTO) 1.3 % (0-1); EOSINOPHILS # (AUTO) 0.2 X10'3 (0-0.9); EOSINOPHILS % (AUTO) 2.5 % (0-6); HEMATOCRIT 28.8 % (42.0-52.0); HEMOGLOBIN 9.4 g/dl (14.0-17.9); LYMPHOCYTES # (AUTO) 1.6 X10'3 (1.1-4.8); LYMPHOCYTES % (AUTO) 21.9 % (21-51); MEAN CORPUSCULAR HEMOGLOBIN 24.8 PG (27.0-31.0); MEAN CORPUSCULAR HGB CONC 32.7 g/dL (33.0-36.5); MEAN CORPUSCULAR VOLUME 75.8 FL (78-98); MEAN PLATELET VOLUME 8.1 FL (7.4-10.4); MONOCYTES # (AUTO) 0.6 X10'3 (0-0.9); MONOCYTES % (AUTO) 8.7 % (2-12); NEUTROPHILS # (AUTO) 4.8 X10'3 (1.8-7.7); NEUTROPHILS % (AUTO) 65.6 % (42-75); PLATELET COUNT 272 X10'3 (140-440); RED CELL DISTRIBUTION WIDTH 18.9 % (11.5-14.5); WHITE BLOOD COUNT 7.3 X10'3 (4.5-11.0)
[2019-10-16] MEDS ORDERED: magnesium 2GM in 50ml NS 50 ML IV ONE ×2 (08:45→09:35)
[2019-10-16 08:46] LABS: ALANINE AMINOTRANSFERASE 17 U/L (12-78); ALBUMIN 3.3 G/DL (3.4-5.0); ALBUMIN/GLOBULIN RATIO 1.1 (1.1-1.5); ALKALINE PHOSPHATASE 113 IU/L (46-116); ANION GAP 8 (8-16); ASPARTATE AMINO TRANSFERASE 13 U/L (10-37); BILIRUBIN,TOTAL 1.2 MG/DL (0.1-1.0); BLOOD UREA NITROGEN 17 MG/DL (7-18); BUN/CREATININE RATIO 15.2 (5.4-32.0); CALCIUM 8.4 MG/DL (8.5-10.1); CHLORIDE 104 MMOL/L (99-107); CREATININE 1.12 MG/DL (0.60-1.10); GLUCOSE 121 MG/DL (70-104); MAGNESIUM 1.4 MG/DL (1.5-2.4); POTASSIUM 3.9 MMOL/L (3.5-5.1); SODIUM 139 MMOL/L (135-145); TOTAL CARBON DIOXIDE 27.4 MMOL/L (24-32); TOTAL PROTEIN 6.4 G/DL (6.4-8.2); eGFR 66 ML/MIN
--- NOTE | 2019-10-16 09:08 | NUR ---
MD NOTIFIED OF ABNORMAL LABS MD NOTIFIED OF HR 55BPM
[2019-10-16 10:15] LABS: ANISOCYTOSIS 2+; MICROCYTOSIS 1+; PLATELET ESTIMATE NORMAL
[2019-10-16 10:16] LABS: ACANTHOCYTES 1+; BURR CELLS 2+
[2019-10-16 10:17] LABS: ELLIPTOCYTES FEW; SCHISTOCYTES FEW
[2019-10-16 12:22] VITALS: BP 156/88
== END 2019-10-16 12:23 | disposition home or self-care (01) ==
LOC: ER 07:57
DX: E83.42 Hypomagnesemia (principal); R53.83 Other fatigue; R53.1 Weakness; K59.00 Constipation, unspecified; R19.7 Diarrhea, unspecified; I25.10 Atherosclerotic heart disease of native coronary artery without angina pectoris; I11.0 Hypertensive heart disease with heart failure; I50.9 Heart failure, unspecified; E78.00 Pure hypercholesterolemia, unspecified; I25.2 Old myocardial infarction; K21.9 Gastro-esophageal reflux disease without esophagitis; F41.9 Anxiety disorder, unspecified; F12.90 Cannabis use, unspecified, uncomplicated; Z90.89 Acquired absence of other organs; Z95.0 Presence of cardiac pacemaker; Z98.890 Other specified postprocedural states; Z72.89 Other problems related to lifestyle; Z88.5 Allergy status to narcotic agent; Z79.82 Long term (current) use of aspirin; Z79.899 Other long term (current) drug therapy
CPT/HCPCS: 36415; 80053; 80162; 83735; 85025; 93005; 96365; 96366; 99285; J3475

== ENCOUNTER 2019-11-04 08:11 | Observation (INO) | payer MEDICARE, OTHER ==
[~2019-11-04] VITALS: Ht 177.8 cm; Wt 76.4 kg
[2019-11-04 09:12] LABS: BASOPHILS # (AUTO) 0.1 X10'3 (0-0.2); EOSINOPHILS # (AUTO) 0.1 X10'3 (0-0.9); EOSINOPHILS % (AUTO) 1.1 % (0-6); HEMATOCRIT 30.5 % (42.0-52.0); HEMOGLOBIN 9.9 g/dl (14.0-17.9); LYMPHOCYTES # (AUTO) 1.2 X10'3 (1.1-4.8); LYMPHOCYTES % (AUTO) 17.4 % (21-51); MEAN CORPUSCULAR HEMOGLOBIN 24.1 PG (27.0-31.0); MEAN CORPUSCULAR HGB CONC 32.6 g/dL (33.0-36.5); MEAN CORPUSCULAR VOLUME 73.8 FL (78-98); MEAN PLATELET VOLUME 8.3 FL (7.4-10.4); MONOCYTES # (AUTO) 0.5 X10'3 (0-0.9); MONOCYTES % (AUTO) 7.5 % (2-12); NEUTROPHILS # (AUTO) 5.2 X10'3 (1.8-7.7); PLATELET COUNT 279 X10'3 (140-440); RED BLOOD COUNT 4.13 X10'6 (4.70-6.10); RED CELL DISTRIBUTION WIDTH 19.8 % (11.5-14.5); WHITE BLOOD COUNT 7.2 X10'3 (4.5-11.0)
[2019-11-04 09:37] LABS: ALANINE AMINOTRANSFERASE 17 U/L (12-78); ALBUMIN 3.1 G/DL (3.4-5.0); ALKALINE PHOSPHATASE 81 IU/L (46-116); ANION GAP 11 (8-16); ASPARTATE AMINO TRANSFERASE 18 U/L (10-37); BILIRUBIN,TOTAL 1.9 MG/DL (0.1-1.0); BLOOD UREA NITROGEN 16 MG/DL (7-18); BUN/CREATININE RATIO 14.3 (5.4-32.0); CALCIUM 6.1 MG/DL (8.5-10.1); CHLORIDE 102 MMOL/L (99-107); CREATININE 1.12 MG/DL (0.60-1.10); GLUCOSE 98 MG/DL (70-104); POTASSIUM 3.6 MMOL/L (3.5-5.1); SODIUM 138 MMOL/L (135-145); TOTAL CARBON DIOXIDE 25.2 MMOL/L (24-32); TOTAL PROTEIN 6.1 G/DL (6.4-8.2); eGFR 66 ML/MIN
[2019-11-04 09:41] LABS: ACANTHOCYTES 1+; ANISOCYTOSIS 2+; MICROCYTOSIS 1+; PLATELET ESTIMATE NORMAL; POLYCHROMASIA FEW; SCHISTOCYTES FEW
[2019-11-04 09:50] LABS: MAGNESIUM 0.3 MG/DL (1.5-2.4)
[2019-11-04] MEDS ORDERED: magnesium oxide 400mg tablet PO ONE (10:00)
[2019-11-04] MEDS: magnesium 2GM in 50ml NS 50 ML IV SCH ×2 (10:19→11:59)
[2019-11-04] MEDS ORDERED: mag hydrox/Alum hydrox/simeth 30ml oral suspension PO PRN (10:25)
[2019-11-04] MEDS ORDERED: magnesium Cl slow-release 64mg tablet PO PRN (10:25)
[2019-11-04] MEDS ORDERED: acetaminophen 325mg tablet PO PRN (10:25)
[2019-11-04] MEDS ORDERED: magnesium 2GM in 50ml NS 50 ML IV PRN (10:25)
[2019-11-04] MEDS ORDERED: ondansetron/PF 4mg/2ml inj IV PRN (10:25)
[2019-11-04] MEDS ORDERED: normal saline 1000ML IV soln IVB ONE (10:25)
[2019-11-04] MEDS ORDERED: magnesium 4gm in 100ml NS 100 ML IV PRN (10:25)
[2019-11-04] MEDS ORDERED: potassium CL 10mEq/100ml bag 100 ML IV PRN ×2 (10:25)
[2019-11-04] MEDS ORDERED: potassium Cl 20 mEq SR tablet PO PRN ×2 (10:25)
[2019-11-04] MEDS: normal saline 1000ml 1,000 ML IV SCH ×2 (11:12→15:18)
[2019-11-04] MEDS ORDERED: POTA-82 PO (11:57)
[2019-11-04] MEDS ORDERED: CALCIUM GLUC 1gm/50ml NACL,iso 100 ML IV ONE (12:10)
[2019-11-04] MEDS ORDERED: CALCIUM GLUC 1gm/50ml NACL,iso 50 ML IV ONE (12:10)
--- NOTE | 2019-11-04 12:56 | NUR ---
Received report from GIOVANNI Rogers in ER. Patient to arrive to room 3018A.
--- NOTE | 2019-11-04 14:36 | NUR ---
Paged Dr. Thomas for nicotine patch per patient request. awaiting callback.
[2019-11-04 15:00] VITALS: BP 140/62
[2019-11-04] MEDS ORDERED: albuterol 2.5 MG/3 ML nebule NEB PRN (17:20)
[2019-11-04 18:00] VITALS: BP 133/74
[2019-11-04] MEDS ORDERED: nitroGLYCERIN 0.4mg SUBLingual tab SL PRN (18:05)
[2019-11-04] MEDS ORDERED: loperamide 2mg capsule PO PRN (18:05)
--- NOTE | 2019-11-04 18:29 | NUR ---
Problems reprioritized. Patient report given, questions answered & plan of care reviewed with GIOVANNI Eastman.
--- NOTE | 2019-11-04 18:52 | NUR ---
Patient in room PCU 3018. I have received report from HAYLEE DAVILA and had the opportunity to ask questions and assume patient care.
[2019-11-04] MEDS: carVEDilol 12.5mg tablet PO SCH (19:40)
[2019-11-04] MEDS: apixaban 5mg tablet PO SCH (19:40)
[2019-11-04] MEDS: magnesium oxide 400mg tablet PO SCH (19:41)
[2019-11-04] MEDS: ipratropium/albuterol 3ml nebule NEB SCH ×2 (19:42→23:05)
[2019-11-04] MEDS: nicotine 14mg patch - 24hr TD SCH (19:43)
[2019-11-04] MEDS: budesonide 0.5mg/2ml UD nebule IH SCH (19:43)
[2019-11-04] MEDS ORDERED: non-formulary drug (Budesonide/Formoterol Fumarate (Symbicort 80-4.5 Mcg Inhaler) 2 PUFFS) INH SCH (20:00)
[2019-11-04] MEDS: K and/or MAG REPLACEMENT MC SCH (20:00)
[2019-11-04] MEDS ORDERED: atorvastatin 20mg tablet PO SCH (21:00)
[2019-11-04 22:00] VITALS: BP 109/47
[2019-11-05] MEDS: normal saline 1000ml 1,000 ML IV SCH (01:34)
[2019-11-05 02:00] VITALS: BP 134/65
[2019-11-05] MEDS: ipratropium/albuterol 3ml nebule NEB SCH ×3 (03:11→12:30)
--- NOTE | 2019-11-05 06:00 | NUR ---
Patient in room PCU 3018. I have received report from Raiza DAVILA and had the opportunity to ask questions and assume patient care.
[2019-11-05 06:01] LABS: BASOPHILS # (AUTO) 0.1 X10'3 (0-0.2); EOSINOPHILS # (AUTO) 0.1 X10'3 (0-0.9); EOSINOPHILS % (AUTO) 2.1 % (0-6); HEMATOCRIT 27.7 % (42.0-52.0); HEMOGLOBIN 8.9 g/dl (14.0-17.9); LYMPHOCYTES # (AUTO) 0.9 X10'3 (1.1-4.8); LYMPHOCYTES % (AUTO) 14.6 % (21-51); MEAN CORPUSCULAR HEMOGLOBIN 23.9 PG (27.0-31.0); MEAN CORPUSCULAR HGB CONC 32.2 g/dL (33.0-36.5); MEAN CORPUSCULAR VOLUME 74.2 FL (78-98); MEAN PLATELET VOLUME 8.6 FL (7.4-10.4); MONOCYTES # (AUTO) 0.5 X10'3 (0-0.9); MONOCYTES % (AUTO) 7.7 % (2-12); NEUTROPHILS # (AUTO) 4.6 X10'3 (1.8-7.7); NEUTROPHILS % (AUTO) 74.6 % (42-75); PLATELET COUNT 239 X10'3 (140-440); RED BLOOD COUNT 3.74 X10'6 (4.70-6.10); RED CELL DISTRIBUTION WIDTH 20.1 % (11.5-14.5); WHITE BLOOD COUNT 6.2 X10'3 (4.5-11.0)
[2019-11-05 06:09] LABS: ALANINE AMINOTRANSFERASE 15 U/L (12-78); ALBUMIN 2.9 G/DL (3.4-5.0); ALKALINE PHOSPHATASE 75 IU/L (46-116); ANION GAP 5 (8-16); ASPARTATE AMINO TRANSFERASE 14 U/L (10-37); BILIRUBIN,TOTAL 1.2 MG/DL (0.1-1.0); BLOOD UREA NITROGEN 17 MG/DL (7-18); BUN/CREATININE RATIO 17.2 (5.4-32.0); CALCIUM 6.5 MG/DL (8.5-10.1); CHLORIDE 108 MMOL/L (99-107); CREATININE 0.99 MG/DL (0.60-1.10); GLUCOSE 124 MG/DL (70-104); MAGNESIUM 1.9 MG/DL (1.5-2.4); POTASSIUM 3.5 MMOL/L (3.5-5.1); SODIUM 141 MMOL/L (135-145); TOTAL PROTEIN 5.7 G/DL (6.4-8.2); eGFR 76 ML/MIN
--- NOTE | 2019-11-05 06:24 | NUR ---
Problems reprioritized. Patient report given, questions answered & plan of care reviewed with MAXX DAVILA.
[2019-11-05 07:00] VITALS: BP 141/83
[2019-11-05 07:16] LABS: PLATELET ESTIMATE NORMAL
[2019-11-05 07:20] LABS: ANISOCYTOSIS 1+
[2019-11-05 07:23] LABS: MICROCYTOSIS 1+
[2019-11-05] MEDS ORDERED: pantoprazole 40mg Tablet.DR PO SCH (07:30)
[2019-11-05] MEDS: carVEDilol 12.5mg tablet PO SCH (07:37)
[2019-11-05] MEDS: apixaban 5mg tablet PO SCH (07:37)
[2019-11-05] MEDS: magnesium oxide 400mg tablet PO SCH (07:38)
[2019-11-05 07:39] VITALS: BP_SYST 141
[2019-11-05] MEDS: nicotine 14mg patch - 24hr TD SCH (07:39)
[2019-11-05] MEDS ORDERED: isosorbide mononitrate 30mg tab.SR.24H PO SCH (08:00)
[2019-11-05] MEDS ORDERED: lisinopril 20mg tablet PO SCH (08:00)
[2019-11-05] MEDS ORDERED: potassium Cl 20 mEq SR tablet PO SCH (08:00)
[2019-11-05] MEDS ORDERED: non-formulary drug (Esomeprazole Magnesium (Nexium) 1 CAP) PO SCH (08:00)
[2019-11-05] MEDS: K and/or MAG REPLACEMENT MC SCH (08:00)
[2019-11-05] MEDS ORDERED: digoxin 125mcg (0.125mg) tablet PO SCH (08:00)
[2019-11-05] MEDS: budesonide 0.5mg/2ml UD nebule IH SCH (08:28)
[2019-11-05] MEDS ORDERED: OSC500T PO (12:02)
--- NOTE | 2019-11-05 13:40 | NUR ---
Patient was discharged to home @1255 and was picked up by a friend. PIV was removed with cannula intact. Nicotine patch was removed. RX was escripted to his pharmacy. Discharge instructions were reviewed with the patient and he verbalized understanding. He agreed to make a f/u appt with PCP as soon as possible . Patient was alert, oriented, and appropriate.
[2019-11-06] MEDS ORDERED: PRED20TA PO (11:14)
== END 2019-11-05 12:53 | disposition home or self-care (01) ==
LOC: ER 08:12 → ED HOLD 10:23 → EDBEDREQ 12:44 → PCU 3S 13:15
PROVIDERS: ADMIT Family Medicine; ATTEND Family Medicine
DX: E83.42 Hypomagnesemia (principal); R19.7 Diarrhea, unspecified; E83.51 Hypocalcemia; I25.10 Atherosclerotic heart disease of native coronary artery without angina pectoris; F41.9 Anxiety disorder, unspecified; I13.0 Hypertensive heart and chronic kidney disease with heart failure and stage 1 through stage 4 chronic kidney disease, or unspecified chronic kidney disease; N18.9 Chronic kidney disease, unspecified; I50.20 Unspecified systolic (congestive) heart failure; D64.9 Anemia, unspecified; K21.9 Gastro-esophageal reflux disease without esophagitis; F32.9 Major depressive disorder, single episode, unspecified; I48.20 Chronic atrial fibrillation, unspecified; E78.5 Hyperlipidemia, unspecified; E87.6 Hypokalemia; I25.2 Old myocardial infarction; E78.00 Pure hypercholesterolemia, unspecified; F17.210 Nicotine dependence, cigarettes, uncomplicated; Z95.0 Presence of cardiac pacemaker; Z95.1 Presence of aortocoronary bypass graft; Z95.5 Presence of coronary angioplasty implant and graft; Z90.49 Acquired absence of other specified parts of digestive tract; Z79.01 Long term (current) use of anticoagulants; Z79.82 Long term (current) use of aspirin; Z79.899 Other long term (current) drug therapy; Z88.5 Allergy status to narcotic agent
CPT/HCPCS: 36415; 80053; 80162; 82330; 83735; 84443; 85025; 87081; 93005; 94640; 94760; 96361; 96365; 96366; 96368; 99285; G0378; J3475; J7030; 85008; J7626

== ENCOUNTER 2019-11-06 07:31 | Emergency (ER) | payer MEDICARE, OTHER ==
[~2019-11-06] VITALS: Ht 177.8 cm; Wt 72.7 kg
[~2019-11-06 07:31] MED LIST changes: -ASPI-1265 PO; -FURO40TA4 PO; -MAGN400T29 PO; +OSC500T PO; +POTA-82 PO; -POTA2TAB17 PEG
[2019-11-06] MEDS ORDERED: dexamethasone sod phosphate 10mg/ml inj IV STA (08:39)
[2019-11-06 09:09] LABS: EOSINOPHILS # (AUTO) 0.1 X10'3 (0-0.9); HEMOGLOBIN 9.9 g/dl (14.0-17.9); LYMPHOCYTES # (AUTO) 1.3 X10'3 (1.1-4.8); MEAN PLATELET VOLUME 8.4 FL (7.4-10.4); MONOCYTES # (AUTO) 0.8 X10'3 (0-0.9)
[2019-11-06 09:11] LABS: BASOPHILS # (AUTO) 0.1 X10'3 (0-0.2); BASOPHILS % (AUTO) 1.3 % (0-1); MEAN CORPUSCULAR VOLUME 74.9 FL (78-98); MONOCYTES % (AUTO) 11.9 % (2-12); NEUTROPHILS # (AUTO) 4.6 X10'3 (1.8-7.7); NEUTROPHILS % (AUTO) 65.8 % (42-75); PLATELET COUNT 287 X10'3 (140-440); RED BLOOD COUNT 4.13 X10'6 (4.70-6.10); RED CELL DISTRIBUTION WIDTH 20.5 % (11.5-14.5)
[2019-11-06 09:17] LABS: D-DIMER 2.36 MG/L FEU (0-0.50)
[2019-11-06 09:21] LABS: ALANINE AMINOTRANSFERASE 16 U/L (12-78); ALBUMIN 3.6 G/DL (3.4-5.0); ALBUMIN/GLOBULIN RATIO 1.1 (1.1-1.5); ALKALINE PHOSPHATASE 92 IU/L (46-116); ANION GAP 6 (8-16); ASPARTATE AMINO TRANSFERASE 13 U/L (10-37); BILIRUBIN,TOTAL 1.6 MG/DL (0.1-1.0); BLOOD UREA NITROGEN 15 MG/DL (7-18); BUN/CREATININE RATIO 15.6 (5.4-32.0); CHLORIDE 106 MMOL/L (99-107); CREATININE 0.96 MG/DL (0.60-1.10); GLUCOSE 90 MG/DL (70-104); POTASSIUM 4.2 MMOL/L (3.5-5.1); SODIUM 139 MMOL/L (135-145); TOTAL PROTEIN 6.8 G/DL (6.4-8.2); eGFR 78 ML/MIN
[2019-11-06 09:29] LABS: MAGNESIUM 1.7 MG/DL (1.5-2.4)
--- NOTE | 2019-11-06 09:36 | NUR ---
SPOKE TO DR KELLEY REGARDING PT BREATHING TX A SPER MD HE WANT TO DO CT SCAN PT LUNGS ARE CLEAR.PT STILL SOB. R-20-35. SPO2 95-98% ON RA.
--- NOTE | 2019-11-06 09:59 | NUR ---
PT IS ANXIOUS ABOUT GETTING POKED AGAIN WITH IV ,INFORMED THAT HE ALREADY HAS IV IN [place] NOT NEEDED ANY IV RGT NOW,PT IS COMFORTABLE.SPO2 97% ON RA ,STILL SOB R 35.
[2019-11-06] MEDS ORDERED: iohexol 350MG/ML 100ml bottle IV ONE (10:00)
--- NOTE | 2019-11-06 10:05 | NUR ---
CT CALLED INFORMED PT HAS IV TO [facility].
[2019-11-06 10:14] LABS: PLATELET ESTIMATE NORMAL
[2019-11-06 10:15] LABS: ANISOCYTOSIS 3+; MICROCYTOSIS 1+
[2019-11-06 10:17] LABS: ACANTHOCYTES 2+
--- NOTE | 2019-11-06 10:18 | NUR ---
to ct scan.
[2019-11-06 10:19] LABS: ELLIPTOCYTES FEW
[2019-11-06 10:20] LABS: SCHISTOCYTES 1+
[2019-11-06] MEDS ORDERED: PRED20TA PO (11:14)
--- NOTE | 2019-11-06 11:30 | NUR ---
NOTIFIED DR KELLEY REGARDING PT SOB RR 26-35,SPO2 96%.,BP 160/105, PER MD HE WILL ORDER ABG.
--- NOTE | 2019-11-06 12:11 | NUR ---
RT AT BEDSIDE FOR ABG.SPOKE TO DR Jett REGARDING PT PRO BNP PER MD HE DOES NOT THINK THATS THE RESON FOR SOB.
[2019-11-06 13:01] VITALS: BP 160/100
== END 2019-11-06 13:03 | disposition home or self-care (01) ==
LOC: ER 07:32
DX: R06.02 Shortness of breath (principal); I48.91 Unspecified atrial fibrillation; I25.10 Atherosclerotic heart disease of native coronary artery without angina pectoris; I11.0 Hypertensive heart disease with heart failure; I50.9 Heart failure, unspecified; E78.00 Pure hypercholesterolemia, unspecified; I25.2 Old myocardial infarction; K21.9 Gastro-esophageal reflux disease without esophagitis; F41.9 Anxiety disorder, unspecified; F12.90 Cannabis use, unspecified, uncomplicated; Z90.89 Acquired absence of other organs; Z95.0 Presence of cardiac pacemaker; Z98.890 Other specified postprocedural states; Z72.89 Other problems related to lifestyle; Z88.5 Allergy status to narcotic agent; Z79.899 Other long term (current) drug therapy
CPT/HCPCS: 36415; 71045; 71275; 80053; 80162; 82330; 83735; 83880; 84484; 85025; 85379; 93005; 96374; 99285; J1100; Q9967; 85008

== ENCOUNTER 2019-11-30 10:21 | Observation (INO) | payer MEDICARE, OTHER ==
[~2019-11-30] VITALS: Ht 177.8 cm; Wt 68.3 kg
[~2019-11-30 10:21] MED LIST changes: +AMIL1TAB PO; +CALC-157 PO; +IPRA3AMP31 IH; -IPRA3AMP9 NEB; -LOPE-144 PO; -MAGN400C PO; +MAGN400T52 PO; -OSC500T PO; -POTA-82 PO; +SERT25TA5 PO
[2019-11-30 11:14] LABS: BASOPHILS # (AUTO) 0.1 X10'3 (0-0.2); BASOPHILS % (AUTO) 1.5 % (0-1); EOSINOPHILS # (AUTO) 0.2 X10'3 (0-0.9); HEMATOCRIT 29.7 % (42.0-52.0); HEMOGLOBIN 9.5 g/dl (14.0-17.9); LYMPHOCYTES # (AUTO) 1.4 X10'3 (1.1-4.8); LYMPHOCYTES % (AUTO) 21.3 % (21-51); MEAN CORPUSCULAR HEMOGLOBIN 23.5 PG (27.0-31.0); MEAN CORPUSCULAR VOLUME 73.5 FL (78-98); MEAN PLATELET VOLUME 8.2 FL (7.4-10.4); MONOCYTES # (AUTO) 0.7 X10'3 (0-0.9); MONOCYTES % (AUTO) 10.9 % (2-12); NEUTROPHILS # (AUTO) 4.2 X10'3 (1.8-7.7); NEUTROPHILS % (AUTO) 63.3 % (42-75); PLATELET COUNT 365 X10'3 (140-440); RED BLOOD COUNT 4.03 X10'6 (4.70-6.10); RED CELL DISTRIBUTION WIDTH 20.4 % (11.5-14.5); WHITE BLOOD COUNT 6.6 X10'3 (4.5-11.0)
[2019-11-30 11:28] LABS: ALANINE AMINOTRANSFERASE 46 U/L (12-78); ALBUMIN 3.4 G/DL (3.4-5.0); ALKALINE PHOSPHATASE 103 IU/L (46-116); ANION GAP 8 (8-16); ASPARTATE AMINO TRANSFERASE 28 U/L (10-37); BLOOD UREA NITROGEN 27 MG/DL (7-18); BUN/CREATININE RATIO 18.8 (5.4-32.0); CALCIUM 6.1 MG/DL (8.5-10.1); CHLORIDE 99 MMOL/L (99-107); CREATININE 1.44 MG/DL (0.60-1.10); GLUCOSE 191 MG/DL (70-104); POTASSIUM 3.6 MMOL/L (3.5-5.1); SODIUM 136 MMOL/L (135-145); TOTAL CARBON DIOXIDE 29.2 MMOL/L (24-32); TOTAL PROTEIN 6.9 G/DL (6.4-8.2); eGFR 49 ML/MIN
[2019-11-30 11:32] LABS: MAGNESIUM 0.3 MG/DL (1.5-2.4)
--- NOTE | 2019-11-30 11:34 | NUR ---
PT CRYING IN BED BECAUSE HE IS AFRAID OF GETTING AN IV
[2019-11-30] MEDS ORDERED: magnesium 2GM in 50ml NS 50 ML IV ONE (11:45)
[2019-11-30 11:56] LABS: ACANTHOCYTES 2+; ANISOCYTOSIS 3+; MICROCYTOSIS 1+
[2019-11-30 11:58] LABS: BURR CELLS FEW; ELLIPTOCYTES 1+; SCHISTOCYTES 1+
[2019-11-30 11:59] LABS: PLATELET ESTIMATE NORMAL; POIKILOCYTOSIS 1+
[2019-11-30 12:00] LABS: HYPOCHROMASIA 1+
--- NOTE | 2019-11-30 12:18 | NUR ---
failed iv attempt x2 will find another rn to start iv
[2019-11-30] MEDS ORDERED: DIGO125T PO (13:00)
[2019-11-30] MEDS ORDERED: LISI-600 PO (13:00)
[2019-11-30] MEDS ORDERED: APIX5TAB3 PO (13:00)
[2019-11-30] MEDS ORDERED: MAGN500T2 PO (13:00)
[2019-11-30] MEDS ORDERED: ATOR-2 PO (13:00)
[2019-11-30] MEDS ORDERED: POTA20TA19 PO (13:00)
[2019-11-30] MEDS ORDERED: CARV25TA2 PO (13:00)
[2019-11-30] MEDS ORDERED: CALC-157 PO (13:00)
[2019-11-30] MEDS ORDERED: IPRA3AMP31 IH (13:00)
[2019-11-30] MEDS ORDERED: FURO40TA4 PO (13:00)
[2019-11-30] MEDS ORDERED: ESOM40CA54 PO (13:00)
[2019-11-30] MEDS ORDERED: ISOS60TA4 PO (13:00)
[2019-11-30] MEDS ORDERED: magnesium hydroxide 30ml (MOM) UD suspension PO PRN (13:15)
[2019-11-30] MEDS ORDERED: acetaminophen 325mg tablet PO PRN (13:15)
[2019-11-30] MEDS ORDERED: calcium gluconate inj. 1 GM in normal saline 100ml IV soln 100 ML IV ONE (13:15)
[2019-11-30] MEDS ORDERED: ondansetron/PF 4mg/2ml inj IV PRN (13:15)
[2019-11-30] MEDS ORDERED: mag hydrox/Alum hydrox/simeth 30ml oral suspension PO PRN (13:15)
[2019-11-30] MEDS ORDERED: CALCIUM GLUC 1gm/50ml NACL,iso 50 ML IV ONE (13:30)
[2019-11-30 13:49] LABS: CLARITY,URINE CLEAR (Clear); COLOR,URINE YELLOW (Yellow); GLUCOSE, URINE NEGATIVE (Neg); KETONES,URINE NEGATIVE (Neg); LEUKOCYTE ESTERASE ,URINE NEGATIVE (Neg); NITRITES, URINE NEGATIVE (Neg); OCCULT BLOOD,URINE NEGATIVE (Neg); PROTEIN,URINE NEGATIVE (Neg)
[2019-11-30 13:52] LABS: UA COLLECTION TYPE URINAL
[2019-11-30 15:00] VITALS: BP 86/37
--- NOTE | 2019-11-30 15:12 | NUR ---
PAGER ID: [phone] MESSAGE: [phone] Angelito Lippi: BP 86/37 GIOVANNI Torrez Ext [phone]
[2019-11-30] MEDS: normal saline 1000ml 1,000 ML IV SCH (16:20)
[2019-11-30] MEDS ORDERED: ipratropium/albuterol 3ml nebule IH PRN (16:20)
[2019-11-30] MEDS ORDERED: magnesium 4gm in 100ml NS 100 ML IV PRN (16:45)
[2019-11-30] MEDS ORDERED: magnesium Cl slow-release 64mg tablet PO PRN (16:45)
[2019-11-30] MEDS ORDERED: magnesium 2GM in 50ml NS 50 ML IV PRN (16:50)
--- NOTE | 2019-11-30 18:45 | NUR ---
Problems reprioritized. Patient report given, questions answered & plan of care reviewed with GIOVANNI Casiano.
[2019-11-30 19:00] VITALS: BP 95/42
[2019-11-30] MEDS ORDERED: heparin, porcine 5000 units/ml vial SQ SCH (20:00)
[2019-11-30] MEDS: K and/or MAG REPLACEMENT MC SCH (20:00)
[2019-11-30] MEDS: apixaban 5mg tablet PO SCH (21:49)
[2019-11-30] MEDS: carVEDilol 12.5mg tablet PO SCH (21:50)
[2019-11-30 23:30] VITALS: BP 104/52
[2019-12-01] MEDS: normal saline 1000ml 1,000 ML IV SCH (04:40)
[2019-12-01 05:11] LABS: BASOPHILS # (AUTO) 0.1 X10'3 (0-0.2); BASOPHILS % (AUTO) 1.1 % (0-1); EOSINOPHILS # (AUTO) 0.2 X10'3 (0-0.9); EOSINOPHILS % (AUTO) 2.6 % (0-6); HEMATOCRIT 27.8 % (42.0-52.0); HEMOGLOBIN 9.1 g/dl (14.0-17.9); LYMPHOCYTES # (AUTO) 1.4 X10'3 (1.1-4.8); LYMPHOCYTES % (AUTO) 20.2 % (21-51); MEAN CORPUSCULAR HEMOGLOBIN 23.8 PG (27.0-31.0); MEAN CORPUSCULAR HGB CONC 32.5 g/dL (33.0-36.5); MEAN CORPUSCULAR VOLUME 73.2 FL (78-98); MEAN PLATELET VOLUME 7.9 FL (7.4-10.4); MONOCYTES # (AUTO) 0.8 X10'3 (0-0.9); MONOCYTES % (AUTO) 11.8 % (2-12); NEUTROPHILS # (AUTO) 4.6 X10'3 (1.8-7.7); NEUTROPHILS % (AUTO) 64.3 % (42-75); PLATELET COUNT 333 X10'3 (140-440); RED CELL DISTRIBUTION WIDTH 20.6 % (11.5-14.5); WHITE BLOOD COUNT 7.2 X10'3 (4.5-11.0)
[2019-12-01 05:26] LABS: ALANINE AMINOTRANSFERASE 41 U/L (12-78); ALBUMIN 3.1 G/DL (3.4-5.0); ALKALINE PHOSPHATASE 95 IU/L (46-116); ANION GAP 6 (8-16); ASPARTATE AMINO TRANSFERASE 22 U/L (10-37); BILIRUBIN,TOTAL 0.9 MG/DL (0.1-1.0); BLOOD UREA NITROGEN 27 MG/DL (7-18); BUN/CREATININE RATIO 24.3 (5.4-32.0); CALCIUM 6.6 MG/DL (8.5-10.1); CHLORIDE 103 MMOL/L (99-107); CREATININE 1.11 MG/DL (0.60-1.10); GLUCOSE 86 MG/DL (70-104); MAGNESIUM 1.9 MG/DL (1.5-2.4); POTASSIUM 3.9 MMOL/L (3.5-5.1); SODIUM 139 MMOL/L (135-145); TOTAL CARBON DIOXIDE 30.4 MMOL/L (24-32); TOTAL PROTEIN 6.3 G/DL (6.4-8.2); eGFR 66 ML/MIN
[2019-12-01 06:00] VITALS: BP 116/62
[2019-12-01 06:08] LABS: ANISOCYTOSIS 3+; MICROCYTOSIS 1+; PLATELET ESTIMATE NORMAL
[2019-12-01 06:09] LABS: ACANTHOCYTES 2+; ELLIPTOCYTES FEW; POLYCHROMASIA FEW; SCHISTOCYTES FEW
--- NOTE | 2019-12-01 06:30 | NUR ---
Patient in room MED 313. I have received report from Shannon DAVILA and had the opportunity to ask questions and assume patient care.
[2019-12-01] MEDS ORDERED: pantoprazole 40mg Tablet.DR PO SCH (07:30)
[2019-12-01] MEDS ORDERED: lisinopril 20mg tablet PO SCH (08:00)
[2019-12-01] MEDS ORDERED: digoxin 125mcg (0.125mg) tablet PO SCH (08:00)
[2019-12-01] MEDS ORDERED: magnesium oxide 400mg tablet PO SCH (08:00)
[2019-12-01] MEDS ORDERED: potassium Cl 20 mEq SR tablet PO SCH (08:00)
[2019-12-01] MEDS ORDERED: isosorbide mononitrate 30mg tab.SR.24H PO SCH (08:00)
[2019-12-01] MEDS ORDERED: calcium carbonate 500mg tablet PO SCH (08:00)
[2019-12-01] MEDS: K and/or MAG REPLACEMENT MC SCH (08:00)
[2019-12-01] MEDS ORDERED: atorvastatin 20mg tablet PO SCH (08:00)
[2019-12-01] MEDS: apixaban 5mg tablet PO SCH (09:02)
[2019-12-01] MEDS: carVEDilol 12.5mg tablet PO SCH (09:08)
[2019-12-01 11:00] VITALS: BP 147/87
[2019-12-01] MEDS ORDERED: AMIL5TAB8 PO (12:55)
--- NOTE | 2019-12-01 14:00 | NUR ---
discharge orders given. IV d/c ed and no s/s of complications. Discharge instructions given to pt and he stated understanding. All belongings accounted for. Pt escorted to private vehicle
--- NOTE | 2019-12-04 11:50 | NUR ---
Case Management DC follow up: Spoke w/pt via telephone. s/p: muscle, abd cramp r/t hypo-mg-Ca, electrolyte imbalance. Pt Reports: "feel like I'm going downhill again" pt clarified he is having diarrhea so that tells him he will lose mg and symptoms will start again. pt states started taking immodium AD. No symptomatic at this time r/t electrolyte imbalance. Denies: Acute/continuous CP, emergent SOB, resp distress, orthopnea, dyspnea, N/V, hematemesis, weakness, vertigo, syncope episodes, orthostatic hypotension, ARCINIEGA, blurry vision, s/s stroke/FAST, dysphagia, bladder pain, dysuria, polyuria, hematuria, retention, abd pain/distention, hematochezia, melena, unexplained bruising, bleeding, fever, chills. Denies abd, muscle cramping at this time. Verbalizes understanding of new Rx:amiloride, why prescribed; continues/resumes current Rx as ordered, denies ase r/t polypharmacy. Verbalizes compliance w/aftercare. Verbalizes understanding of s/s that warrant 9-11/ER visit for further evaluation. Pt acknowledges need to schedule/confirm/keep follow up appt w/PCP/[facility], still trying to establish PCP, states cousin is a retired Dr and is helping him. pt needs another referral for stand in. Needs met, questions/concerns addressed at DC; No further questions/concerns r/t recent hospital stay and/or DC status at this time.
== END 2019-12-01 14:00 | disposition home or self-care (01) ==
LOC: ER 10:22 → ED HOLD 13:30 → EDBEDREQ 13:58 → MED 3N 14:20
PROVIDERS: ADMIT Family Medicine; ATTEND Family Medicine
DX: E83.42 Hypomagnesemia (principal); E83.51 Hypocalcemia; I95.9 Hypotension, unspecified; R19.7 Diarrhea, unspecified; I25.10 Atherosclerotic heart disease of native coronary artery without angina pectoris; E78.5 Hyperlipidemia, unspecified; I48.91 Unspecified atrial fibrillation; M79.7 Fibromyalgia; J44.9 Chronic obstructive pulmonary disease, unspecified; I11.0 Hypertensive heart disease with heart failure; I50.20 Unspecified systolic (congestive) heart failure; I25.2 Old myocardial infarction; F41.9 Anxiety disorder, unspecified; E78.00 Pure hypercholesterolemia, unspecified; Z95.1 Presence of aortocoronary bypass graft; Z90.49 Acquired absence of other specified parts of digestive tract; Z95.0 Presence of cardiac pacemaker; Z79.01 Long term (current) use of anticoagulants; Z79.899 Other long term (current) drug therapy; Z88.5 Allergy status to narcotic agent
CPT/HCPCS: 36415; 80053; 81003; 82330; 83735; 85025; 87081; 93005; 94760; 96361; 96365; 96366; 96375; 99284; G0378; J3475; J7030; 85008

== ENCOUNTER 2019-12-13 06:23 | Inpatient (IN) | payer MEDICARE, OTHER ==
[~2019-12-13] VITALS: Ht 177.8 cm; Wt 68.5 kg
[~2019-12-13 06:23] MED LIST changes: -ALBU8.5H8 IH; -AMIL1TAB PO; +AMIL5TAB8 PO; +ATOR-2 PO; -ATOR80TA PO; -BUDE10.22 INH; -DIGO-16 PO; +DIGO125T PO; -ESOM40CA49 PO; +ESOM40CA54 PO; -MAGN400T52 PO; +MAGN500T2 PO; -NITR0.4T51 SL; +POTA20TA19 PO; -SERT25TA5 PO
--- NOTE | 2019-12-13 07:17 | NUR ---
PT STATES HE WAS POKED 4X LAST VISIT BEFORE AN [facility] IV WAS P[LACED AND HE DOESNT WANT THAT EXPERIENCE AGAIN AND WOULD LIKE TO JUST GO TO THE U/[facility].
[2019-12-13 07:49] LABS: BASOPHILS # (AUTO) 0.1 X10'3 (0-0.2); EOSINOPHILS # (AUTO) 0.1 X10'3 (0-0.9); HEMATOCRIT 29.9 % (42.0-52.0); HEMOGLOBIN 9.6 g/dl (14.0-17.9); LYMPHOCYTES # (AUTO) 1.1 X10'3 (1.1-4.8); LYMPHOCYTES % (AUTO) 15.9 % (21-51); MEAN CORPUSCULAR HEMOGLOBIN 23.6 PG (27.0-31.0); MEAN CORPUSCULAR VOLUME 73.9 FL (78-98); MEAN PLATELET VOLUME 8.1 FL (7.4-10.4); MONOCYTES # (AUTO) 0.6 X10'3 (0-0.9); MONOCYTES % (AUTO) 9.1 % (2-12); PLATELET COUNT 288 X10'3 (140-440); RED BLOOD COUNT 4.05 X10'6 (4.70-6.10); RED CELL DISTRIBUTION WIDTH 21.6 % (11.5-14.5); WHITE BLOOD COUNT 6.9 X10'3 (4.5-11.0)
[2019-12-13 08:05] LABS: ALANINE AMINOTRANSFERASE 29 U/L (12-78); ALBUMIN 3.4 G/DL (3.4-5.0); ALKALINE PHOSPHATASE 104 IU/L (46-116); ANION GAP 9 (8-16); ASPARTATE AMINO TRANSFERASE 19 U/L (10-37); BLOOD UREA NITROGEN 20 MG/DL (7-18); BUN/CREATININE RATIO 21.1 (5.4-32.0); CALCIUM 6.6 MG/DL (8.5-10.1); CHLORIDE 106 MMOL/L (99-107); CREATININE 0.95 MG/DL (0.60-1.10); GLUCOSE 96 MG/DL (70-104); POTASSIUM 3.2 MMOL/L (3.5-5.1); SODIUM 142 MMOL/L (135-145); TOTAL CARBON DIOXIDE 27.5 MMOL/L (24-32); TOTAL PROTEIN 6.9 G/DL (6.4-8.2); eGFR 79 ML/MIN
[2019-12-13 08:11] LABS: CREATINE KINASE 48 U/L (39-308); PHOSPHORUS 4.1 MG/DL (2.3-4.5)
[2019-12-13 08:16] LABS: MAGNESIUM 0.3 MG/DL (1.5-2.4)
[2019-12-13] MEDS ORDERED: potassium Cl 10 mEq/100mL bag IV ONE (08:20)
[2019-12-13] MEDS ORDERED: magnesium 2GM in 50ml NS 50 ML IV ONE (08:20)
--- NOTE | 2019-12-13 09:11 | NUR ---
PTS DURABLE POWER OF NETWORK DESIGN ARCHITECT AND COUSIN DR. SHEILA MAX CALLED TO CHECK ON PT AND REQUEST THE HOSPITALIST CALL HER. SHE IS A RETIRED ORTHOPEDIC SURGEON. PT VERIFIES SHE CAN HAVE ACCESS TO ALL HIS RECORDS AND STAFF CAN SPEAK TO HER REGARDING HIS CARE.
--- NOTE | 2019-12-13 09:26 | NUR ---
DR. MANZANO AT BEDSIDE FOR ADMIT.
[2019-12-13] MEDS ORDERED: HYDR-4353 PO (09:42)
[2019-12-13] MEDS ORDERED: IPRA3AMP9 IH (09:42)
[2019-12-13] MEDS ORDERED: NITR0.4T51 SL (09:43)
[2019-12-13] MEDS ORDERED: ISOS30TA6 PO (09:45)
[2019-12-13] MEDS ORDERED: ondansetron/PF 4mg/2ml inj IV PRN (09:45)
[2019-12-13] MEDS ORDERED: potassium CL 10mEq/100ml bag 100 ML IV PRN ×2 (09:45)
[2019-12-13] MEDS ORDERED: acetaminophen 325mg tablet PO PRN ×2 (09:45)
[2019-12-13] MEDS ORDERED: magnesium 2GM in 50ml NS 50 ML IV PRN (09:45)
[2019-12-13] MEDS ORDERED: magnesium 4gm in 100ml NS 100 ML IV PRN (09:45)
[2019-12-13] MEDS ORDERED: potassium Cl 20 mEq SR tablet PO PRN (09:45)
[2019-12-13] MEDS ORDERED: magnesium Cl slow-release 64mg tablet PO PRN (09:45)
[2019-12-13] MEDS ORDERED: MAGN400C PO (09:46)
[2019-12-13] MEDS ORDERED: ALBU8.5H8 IH (09:47)
[2019-12-13] MEDS ORDERED: BUDE10.22 INH (09:48)
[2019-12-13] MEDS ORDERED: AMIL5TAB3 PO (09:49)
[2019-12-13] MEDS ORDERED: SERT25TA5 PO (09:50)
[2019-12-13 09:56] LABS: ANISOCYTOSIS 3+; MICROCYTOSIS 1+; PLATELET ESTIMATE NORMAL
[2019-12-13 09:57] LABS: ELLIPTOCYTES FEW; SCHISTOCYTES 1+
[2019-12-13] MEDS: normal saline 1000ml 1,000 ML IV SCH ×2 (10:10→19:45)
--- NOTE | 2019-12-13 10:36 | NUR ---
Attempted to call to receive report, placed on hold for a few minutes but needed to hang up for patient care. Awaiting a call back from the ED.
[2019-12-13 11:02] LABS: CLARITY,URINE CLEAR (Clear); COLOR,URINE YELLOW (Yellow); GLUCOSE, URINE NEGATIVE (Neg); KETONES,URINE TRACE mg/dl (Neg); LEUKOCYTE ESTERASE ,URINE NEGATIVE (Neg); NITRITES, URINE NEGATIVE (Neg); OCCULT BLOOD,URINE NEGATIVE (Neg); PROTEIN,URINE 30 mg/dl (Neg)
--- NOTE | 2019-12-13 11:02 | NUR ---
SPOKE TO DR BURGOS ON PHONE; WANTS TO RECHECK MAGNESIUM AFTER COMPLETED AND THEN REPLACE ORDERED PER PROTOCOL
[2019-12-13 11:04] LABS: UA COLLECTION TYPE CLN CATCH MIDSTREAM
[2019-12-13 11:12] LABS: BACTERIA,URINE FEW /HPF (Neg); MUCUS STRANDS FEW /LPF (Neg); RBC,URINE 0-2 /HPF (0-2); SQUAMOUS EPITHELIAL CELL,UR FEW /LPF (FEW)
[2019-12-13 11:13] LABS: FINE GRANULAR CAST 0-3 /LPF (NEGATIVE)
[2019-12-13 13:09] LABS: MAGNESIUM 0.8 MG/DL (1.5-2.4)
--- NOTE | 2019-12-13 13:13 | NUR ---
Page sent to Dr. Jennings: PAGER ID: [phone] MESSAGE: [phone] Angelito Bhatia: Mg redraw is 0.8. Continuing to replace per protocol. Thank you, Madelaine [phone]
[2019-12-13] MEDS: loperamide 2mg capsule PO SCH ×2 (13:29→20:54)
[2019-12-13] MEDS: potassium Cl 20 mEq SR tablet PO PRN ×4 (13:29→21:08)
[2019-12-13] MEDS ORDERED: ALBUTEROL INHALER 1 PUFF/90 MCG INHALER IH PRN (13:30)
[2019-12-13] MEDS ORDERED: ipratropium/albuterol 3ml nebule IH PRN (13:30)
[2019-12-13] MEDS ORDERED: albuterol 2.5 MG/3 ML nebule NEB PRN (13:50)
[2019-12-13 15:00] VITALS: BP 106/52
[2019-12-13 15:31] LABS: OCCULT BLOOD STOOL NEGATIVE (Neg)
[2019-12-13 15:32] LABS: C DIFF ANTIGEN NEGATIVE (NEGATIVE); C DIFF SPECIMEN=DIARRHEA? ACCEPTABLE; C DIFFICILE TOXINS A&B NEGATIVE (Neg)
[2019-12-13] MEDS: albuterol 2.5 MG/3 ML nebule NEB SCH ×3 (15:59→23:43)
[2019-12-13 18:00] VITALS: BP 96/45
--- NOTE | 2019-12-13 18:06 | NUR ---
Problems reprioritized. Patient report given, questions answered & plan of care reviewed with Maranda DAVILA.
[2019-12-13] MEDS: budesonide 0.5mg/2ml UD nebule IH SCH (19:39)
[2019-12-13] MEDS ORDERED: non-formulary drug (Budesonide/Formoterol Fumarate (Symbicort 80-4.5 Mcg Inhaler) 2 PUFFS) INH SCH (20:00)
[2019-12-13] MEDS ORDERED: non-formulary drug (Carvedilol 1 TAB) PO SCH (20:00)
[2019-12-13] MEDS: K and/or MAG REPLACEMENT MC SCH (20:00)
[2019-12-13] MEDS ORDERED: heparin, porcine 5000 units/ml vial SQ SCH (20:00)
[2019-12-13] MEDS: spironolactone 25 MG tablet PO SCH (20:53)
[2019-12-13] MEDS: carVEDilol 12.5mg tablet PO SCH (20:55)
[2019-12-13] MEDS: apixaban 5mg tablet PO SCH (20:55)
[2019-12-13] MEDS ORDERED: temazepam 15mg capsule PO PRN (21:00)
--- NOTE | 2019-12-13 21:28 | NUR ---
Patient in room PCU 3020. I have received report from Madelaine DAVILA and had the opportunity to ask questions and assume patient care. Addendum: 12/13/19 at 2130 by Maranda Liu RN Report time 1800
[2019-12-13 22:00] VITALS: BP 128/66
[2019-12-13] MEDS ORDERED: nicotine 21mg patch - 24 hr TD ONE (22:45)
[2019-12-14 02:00] VITALS: BP 119/51
[2019-12-14] MEDS: albuterol 2.5 MG/3 ML nebule NEB SCH ×2 (03:44→08:00)
[2019-12-14] MEDS: normal saline 1000ml 1,000 ML IV SCH (05:45)
[2019-12-14 06:00] VITALS: BP 105/48
[2019-12-14 06:02] LABS: BASOPHILS # (AUTO) 0.1 X10'3 (0-0.2); EOSINOPHILS # (AUTO) 0.1 X10'3 (0-0.9); EOSINOPHILS % (AUTO) 1.3 % (0-6); HEMOGLOBIN 9.3 g/dl (14.0-17.9); LYMPHOCYTES # (AUTO) 1.2 X10'3 (1.1-4.8); LYMPHOCYTES % (AUTO) 18.7 % (21-51); MEAN CORPUSCULAR HEMOGLOBIN 23.9 PG (27.0-31.0); MEAN CORPUSCULAR VOLUME 74.6 FL (78-98); MEAN PLATELET VOLUME 8.1 FL (7.4-10.4); MONOCYTES # (AUTO) 0.7 X10'3 (0-0.9); MONOCYTES % (AUTO) 10.3 % (2-12); NEUTROPHILS # (AUTO) 4.5 X10'3 (1.8-7.7); NEUTROPHILS % (AUTO) 68.7 % (42-75); PLATELET COUNT 274 X10'3 (140-440); RED BLOOD COUNT 3.89 X10'6 (4.70-6.10); RED CELL DISTRIBUTION WIDTH 21.7 % (11.5-14.5); WHITE BLOOD COUNT 6.6 X10'3 (4.5-11.0)
[2019-12-14 06:08] LABS: ALBUMIN 3.1 G/DL (3.4-5.0); ANION GAP 8 (8-16); BLOOD UREA NITROGEN 22 MG/DL (7-18); BUN/CREATININE RATIO 21.8 (5.4-32.0); CALCIUM 7.2 MG/DL (8.5-10.1); CHLORIDE 108 MMOL/L (99-107); CREATININE 1.01 MG/DL (0.60-1.10); GLUCOSE 87 MG/DL (70-104); MAGNESIUM 2.1 MG/DL (1.5-2.4); PHOSPHORUS 3.2 MG/DL (2.3-4.5); POTASSIUM 4.5 MMOL/L (3.5-5.1); SODIUM 143 MMOL/L (135-145); TOTAL CARBON DIOXIDE 26.9 MMOL/L (24-32); eGFR 74 ML/MIN
--- NOTE | 2019-12-14 06:20 | NUR ---
Patient in room PCU 3020. I have received report from Maranda DAVILA and had the opportunity to ask questions and assume patient care.
--- NOTE | 2019-12-14 06:52 | NUR ---
Problems reprioritized. Patient report given, questions answered & plan of care reviewed with Gabi DAVILA.
[2019-12-14 07:07] LABS: ANISOCYTOSIS 3+; MICROCYTOSIS 1+; PLATELET ESTIMATE NORMAL
[2019-12-14 07:08] LABS: ACANTHOCYTES FEW; ELLIPTOCYTES FEW; POIKILOCYTOSIS 1+
[2019-12-14] MEDS ORDERED: pantoprazole 40mg Tablet.DR PO SCH ×2 (07:30)
[2019-12-14] MEDS: loperamide 2mg capsule PO SCH (07:45)
[2019-12-14 07:46] VITALS: BP_SYST 138
[2019-12-14] MEDS: apixaban 5mg tablet PO SCH (07:46)
[2019-12-14] MEDS: spironolactone 25 MG tablet PO SCH (07:46)
[2019-12-14] MEDS: carVEDilol 12.5mg tablet PO SCH (07:47)
[2019-12-14] MEDS: K and/or MAG REPLACEMENT MC SCH (08:00)
[2019-12-14] MEDS ORDERED: atorvastatin 20mg tablet PO SCH (08:00)
[2019-12-14] MEDS ORDERED: sertraline 25mg tablet PO SCH (08:00)
[2019-12-14] MEDS: budesonide 0.5mg/2ml UD nebule IH SCH (08:00)
[2019-12-14] MEDS ORDERED: digoxin 125mcg (0.125mg) tablet PO SCH (08:00)
[2019-12-14] MEDS ORDERED: isosorbide mononitrate 30mg tab.SR.24H PO SCH (08:00)
[2019-12-14] MEDS ORDERED: AMILORIDE HCL PO SCH (08:00)
[2019-12-14] MEDS ORDERED: lisinopril 20mg tablet PO SCH (08:00)
[2019-12-14] MEDS ORDERED: LOPE2CAP PO (09:16)
[2019-12-14] MEDS ORDERED: OMEP-50 PO (09:16)
[2019-12-14] MEDS ORDERED: AMIL5TAB3 PO (09:16)
[2019-12-14] MEDS ORDERED: SERT25TA5 PO (09:16)
[2019-12-14] MEDS ORDERED: ATOR20TA66 PO (09:16)
--- NOTE | 2019-12-14 10:02 | NUR ---
Prescriptions called to patient pharmacy, [facility] on [facility]
--- NOTE | 2019-12-14 10:55 | NUR ---
Per MD order by Dr. Jennings, patient is stable for discharge home. Discharge packet printed and reviewed with patient. IV removed, tele monitor removed. Patient has existing appointment with nephrology on 12/17 and appointment with new PCP next week as scheduled. Discharge instructions, return precautions, and follow up discussed with patient, all questions answered. Patient escorted with all belongings to private vehicle to go home with family. Addendum: 12/14/19 at 1742 by Gabi Brambila RN Prescriptions called to [facility] on [facility] for patient
== END 2019-12-14 11:14 | disposition home or self-care (01) | DRG 641 ==
LOC: ER 06:23 → ED HOLD 09:45 → PCU 3S 11:54
PROVIDERS: ADMIT Internal Medicine; ATTEND Internal Medicine
DX: E83.42 Hypomagnesemia (principal); I50.20 Unspecified systolic (congestive) heart failure; K52.9 Noninfective gastroenteritis and colitis, unspecified; E78.00 Pure hypercholesterolemia, unspecified; E78.5 Hyperlipidemia, unspecified; E83.51 Hypocalcemia; E87.6 Hypokalemia; F12.90 Cannabis use, unspecified, uncomplicated; F17.210 Nicotine dependence, cigarettes, uncomplicated; I11.0 Hypertensive heart disease with heart failure; I25.10 Atherosclerotic heart disease of native coronary artery without angina pectoris; F41.9 Anxiety disorder, unspecified; K21.9 Gastro-esophageal reflux disease without esophagitis; I48.91 Unspecified atrial fibrillation; J44.9 Chronic obstructive pulmonary disease, unspecified; Z79.01 Long term (current) use of anticoagulants; I25.2 Old myocardial infarction; Z90.49 Acquired absence of other specified parts of digestive tract; Z95.1 Presence of aortocoronary bypass graft; Z95.810 Presence of automatic (implantable) cardiac defibrillator; Z88.5 Allergy status to narcotic agent; Z81.1 Family history of alcohol abuse and dependence; Z81.8 Family history of other mental and behavioral disorders; Z71.51 Drug abuse counseling and surveillance of drug abuser
CPT/HCPCS: 36415; 80048; 80053; 80162; 81001; 82272; 82550; 83605; 83735; 84100; 85008; 85025; 87040; 87045; 87046; 87081; 87088; 87324; 87449; 89055; 93005; 94640; 94760; 96365; 99285; G0378; J1644; J3475; J3480; J7030; J7626

== ENCOUNTER 2019-12-26 12:15 | Emergency (ER) | payer MEDICARE, OTHER ==
[~2019-12-26] VITALS: Ht 177.8 cm; Wt 70.8 kg
[~2019-12-26 12:15] MED LIST changes: +ALBU8.5H8 IH; +AMIL5TAB3 PO; -AMIL5TAB8 PO; -ATOR-2 PO; +ATOR20TA66 PO; +BUDE10.22 INH; -CALC-157 PO; -ESOM40CA54 PO; +HYDR-4353 PO; -IPRA3AMP31 IH; +IPRA3AMP9 IH; +ISOS30TA6 PO; -ISOS60TA4 PO; +LOPE2CAP PO; -MAGN500T2 PO; +NITR0.4T51 SL; +OMEP-50 PO; -POTA20TA19 PO; +SERT25TA5 PO
--- NOTE | 2019-12-26 13:45 | NUR ---
petroleum refinery laborer at bedside.
[2019-12-26 14:06] LABS: BASOPHILS # (AUTO) 0.1 X10'3 (0-0.2); BASOPHILS % (AUTO) 1.2 % (0-1); EOSINOPHILS # (AUTO) 0.2 X10'3 (0-0.9); EOSINOPHILS % (AUTO) 2.5 % (0-6); HEMATOCRIT 28.5 % (42.0-52.0); LYMPHOCYTES # (AUTO) 1.2 X10'3 (1.1-4.8); LYMPHOCYTES % (AUTO) 17.4 % (21-51); MEAN CORPUSCULAR HEMOGLOBIN 23.5 PG (27.0-31.0); MEAN CORPUSCULAR HGB CONC 31.6 g/dL (33.0-36.5); MEAN CORPUSCULAR VOLUME 74.2 FL (78-98); MEAN PLATELET VOLUME 8.3 FL (7.4-10.4); MONOCYTES # (AUTO) 0.7 X10'3 (0-0.9); NEUTROPHILS # (AUTO) 4.6 X10'3 (1.8-7.7); NEUTROPHILS % (AUTO) 68.9 % (42-75); PLATELET COUNT 262 X10'3 (140-440); RED BLOOD COUNT 3.84 X10'6 (4.70-6.10); RED CELL DISTRIBUTION WIDTH 21.7 % (11.5-14.5); WHITE BLOOD COUNT 6.6 X10'3 (4.5-11.0)
[2019-12-26 14:23] LABS: ALANINE AMINOTRANSFERASE 19 U/L (12-78); ALBUMIN 3.1 G/DL (3.4-5.0); ALKALINE PHOSPHATASE 101 IU/L (46-116); ANION GAP 9 (8-16); ASPARTATE AMINO TRANSFERASE 13 U/L (10-37); BLOOD UREA NITROGEN 14 MG/DL (7-18); BUN/CREATININE RATIO 13.6 (5.4-32.0); CALCIUM 6.2 MG/DL (8.5-10.1); CHLORIDE 106 MMOL/L (99-107); CREATININE 1.03 MG/DL (0.60-1.10); GLUCOSE 93 MG/DL (70-104); PHOSPHORUS 4.3 MG/DL (2.3-4.5); POTASSIUM 3.2 MMOL/L (3.5-5.1); SODIUM 143 MMOL/L (135-145); TOTAL CARBON DIOXIDE 28.5 MMOL/L (24-32); TOTAL PROTEIN 6.3 G/DL (6.4-8.2); eGFR 72 ML/MIN
[2019-12-26 14:30] LABS: MAGNESIUM 0.3 MG/DL (1.5-2.4)
[2019-12-26] MEDS ORDERED: magnesium 2GM in 50ml NS 50 ML IV ONE ×2 (14:45→18:40)
[2019-12-26] MEDS ORDERED: potassium Cl 10 mEq/100mL bag IV ONE (14:45)
[2019-12-26 14:46] LABS: ANISOCYTOSIS 3+; ELLIPTOCYTES 1+; MICROCYTOSIS 1+; PLATELET ESTIMATE NORMAL; SCHISTOCYTES 1+
[2019-12-26 14:47] LABS: ACANTHOCYTES 1+; BURR CELLS 1+
[2019-12-26] MEDS ORDERED: OMEP20CA15 PO (16:30)
[2019-12-26] MEDS ORDERED: ATOR40TA72 PO (16:30)
[2019-12-26] MEDS ORDERED: SERT25TA5 PO (16:30)
[2019-12-26] MEDS ORDERED: AMIL5TAB8 PO (16:35)
[2019-12-26] MEDS ORDERED: MAGN400T29 PO (16:35)
[2019-12-26] MEDS ORDERED: CARV25TA2 PO (16:35)
[2019-12-26] MEDS ORDERED: ipratropium/albuterol 3ml nebule NEB ONE (18:00)
[2019-12-26] MEDS ORDERED: LORazepam 2 mg/ml vial IV ONE (18:00)
--- NOTE | 2019-12-26 18:35 | NUR ---
paged RT for breahing Tx
[2019-12-26 18:54] LABS: CLARITY,URINE SLIGHTLY CLOUDY (Clear); COLOR,URINE AMBER (Yellow); GLUCOSE, URINE NEGATIVE (Neg); KETONES,URINE NEGATIVE (Neg); LEUKOCYTE ESTERASE ,URINE NEGATIVE (Neg); NITRITES, URINE NEGATIVE (Neg); OCCULT BLOOD,URINE NEGATIVE (Neg); PROTEIN,URINE 100 mg/dl (Neg)
[2019-12-26 19:00] LABS: UA COLLECTION TYPE URINAL
[2019-12-26 19:04] LABS: BACTERIA,URINE NONE SEEN /HPF (Neg); COARSE GRANULAR CAST 0-3 /LPF (NEGATIVE); RBC,URINE 0-2 /HPF (0-2); SQUAMOUS EPITHELIAL CELL,UR FEW /LPF (FEW); WBC,URINE 0-4 /HPF (0-4)
[2019-12-26 19:25] VITALS: BP 162/98
== END 2019-12-26 19:26 | disposition home or self-care (01) ==
LOC: ER 12:15
DX: E83.42 Hypomagnesemia (principal); E87.6 Hypokalemia; R53.1 Weakness; D64.9 Anemia, unspecified; K52.9 Noninfective gastroenteritis and colitis, unspecified; R25.2 Cramp and spasm; R53.83 Other fatigue; I48.91 Unspecified atrial fibrillation; I25.10 Atherosclerotic heart disease of native coronary artery without angina pectoris; I11.0 Hypertensive heart disease with heart failure; I50.9 Heart failure, unspecified; E78.00 Pure hypercholesterolemia, unspecified; I25.2 Old myocardial infarction; K21.9 Gastro-esophageal reflux disease without esophagitis; F41.9 Anxiety disorder, unspecified; F12.90 Cannabis use, unspecified, uncomplicated; Z90.89 Acquired absence of other organs; Z95.0 Presence of cardiac pacemaker; Z98.890 Other specified postprocedural states; Z72.89 Other problems related to lifestyle; Z88.5 Allergy status to narcotic agent; Z79.899 Other long term (current) drug therapy
CPT/HCPCS: 36415; 80053; 81001; 83735; 84100; 85025; 93005; 94640; 96365; 96366; 96368; 96375; 99285; J2060; J3475; J3480; 85008; 94760

== ENCOUNTER 2020-01-26 11:32 | Inpatient (IN) | payer MEDICARE, OTHER ==
[~2020-01-26] VITALS: Ht 177.8 cm; Wt 70.0 kg
[~2020-01-26 11:32] MED LIST changes: -AMIL5TAB3 PO; +AMIL5TAB8 PO; -ATOR20TA66 PO; +ATOR40TA72 PO; -LOPE2CAP PO; +MAGN400T29 PO; -OMEP-50 PO; +OMEP20CA15 PO
[2020-01-26] MEDS ORDERED: LORazepam 2 mg/ml vial IV ONE (12:10)
[2020-01-26] MEDS ORDERED: magnesium oxide 400mg tablet PO ONE (12:20)
[2020-01-26] MEDS ORDERED: magnesium 2GM in 50ml NS 50 ML IV ONE (12:20)
[2020-01-26 12:27] LABS: BASOPHILS # (AUTO) 0.1 X10'3 (0-0.2); BASOPHILS % (AUTO) 1.3 % (0-1); EOSINOPHILS # (AUTO) 0.1 X10'3 (0-0.9); EOSINOPHILS % (AUTO) 1.4 % (0-6); HEMOGLOBIN 9.2 g/dl (14.0-17.9); LYMPHOCYTES # (AUTO) 1.2 X10'3 (1.1-4.8); LYMPHOCYTES % (AUTO) 14.8 % (21-51); MEAN CORPUSCULAR HEMOGLOBIN 23.4 PG (27.0-31.0); MEAN CORPUSCULAR HGB CONC 31.8 g/dL (33.0-36.5); MEAN CORPUSCULAR VOLUME 73.6 FL (78-98); MEAN PLATELET VOLUME 8.3 FL (7.4-10.4); MONOCYTES # (AUTO) 0.7 X10'3 (0-0.9); MONOCYTES % (AUTO) 8.3 % (2-12); NEUTROPHILS # (AUTO) 6.1 X10'3 (1.8-7.7); NEUTROPHILS % (AUTO) 74.2 % (42-75); PLATELET COUNT 298 X10'3 (140-440); RED BLOOD COUNT 3.93 X10'6 (4.70-6.10); WHITE BLOOD COUNT 8.2 X10'3 (4.5-11.0)
[2020-01-26 12:44] LABS: ALANINE AMINOTRANSFERASE 39 U/L (12-78); ALBUMIN 3.3 G/DL (3.4-5.0); ALKALINE PHOSPHATASE 115 IU/L (46-116); ANION GAP 11 (8-16); ASPARTATE AMINO TRANSFERASE 22 U/L (10-37); BILIRUBIN,TOTAL 1.3 MG/DL (0.1-1.0); BLOOD UREA NITROGEN 23 MG/DL (7-18); CALCIUM 6.6 MG/DL (8.5-10.1); CHLORIDE 109 MMOL/L (99-107); CREATININE 1.28 MG/DL (0.60-1.10); GLUCOSE 100 MG/DL (70-104); POTASSIUM 4.1 MMOL/L (3.5-5.1); SODIUM 146 MMOL/L (135-145); TOTAL CARBON DIOXIDE 26.5 MMOL/L (24-32); TOTAL PROTEIN 6.7 G/DL (6.4-8.2); eGFR 56 ML/MIN
[2020-01-26 12:50] LABS: PHOSPHORUS 5.2 MG/DL (2.3-4.5)
[2020-01-26 12:52] LABS: ANISOCYTOSIS 3+; ELLIPTOCYTES FEW; MICROCYTOSIS 1+; PLATELET ESTIMATE NORMAL
[2020-01-26 12:53] LABS: ACANTHOCYTES 1+; BURR CELLS 1+; SCHISTOCYTES FEW
[2020-01-26 12:54] LABS: MAGNESIUM 0.3 MG/DL (1.5-2.4)
[2020-01-26] MEDS ORDERED: diltiazem 5mg/ml 5ml inj. IV ONE (13:00)
[2020-01-26] MEDS ORDERED: mag hydrox/Alum hydrox/simeth 30ml oral suspension PO PRN (13:20)
[2020-01-26] MEDS ORDERED: HYDROcodone/acetaminophen 10/325mg tab PO PRN (13:20)
[2020-01-26] MEDS ORDERED: ondansetron/PF 4mg/2ml inj IV PRN (13:20)
[2020-01-26] MEDS ORDERED: magnesium Cl slow-release 64mg tablet PO PRN (13:20)
[2020-01-26] MEDS ORDERED: magnesium 2GM in 50ml NS 50 ML IV PRN (13:20)
[2020-01-26] MEDS ORDERED: magnesium hydroxide 30ml (MOM) UD suspension PO PRN (13:20)
[2020-01-26] MEDS ORDERED: potassium Cl 20 mEq SR tablet PO PRN ×2 (13:20)
[2020-01-26] MEDS ORDERED: magnesium 4gm in 100ml NS 100 ML IV PRN (13:20)
[2020-01-26] MEDS ORDERED: morphine 2 MG/ML inj. syringe IV PRN ×2 (13:20)
[2020-01-26] MEDS ORDERED: potassium CL 10mEq/100ml bag 100 ML IV PRN ×2 (13:20)
[2020-01-26] MEDS ORDERED: acetaminophen 325mg tablet PO PRN ×2 (13:20)
[2020-01-26] MEDS ORDERED: HYDROcodone/acetaminophen 5mg/325mg tablet PO PRN (13:20)
[2020-01-26 13:51] LABS: % IRON SATURATION 7 % (11-46); IRON 21 UG/DL (53-167); TOTAL IRON BINDING CAPACITY 304 UG/DL (259-388)
[2020-01-26 14:13] LABS: FERRITIN 19 NG/ML (26-388)
--- NOTE | 2020-01-26 15:28 | NUR ---
PATIENT ASLEEP AT THIS TIME,CALL LIGHT WITHIN REACH.
[2020-01-26] MEDS ORDERED: OMEP20TA5 PO (17:20)
[2020-01-26] MEDS ORDERED: ISOS30TA6 PO (17:20)
[2020-01-26] MEDS ORDERED: CARV-50 PO (17:20)
[2020-01-26] MEDS ORDERED: LISI-600 PO (17:20)
[2020-01-26] MEDS ORDERED: BUDE10.22 INH (17:20)
[2020-01-26] MEDS ORDERED: APIX5TAB3 PO (17:20)
[2020-01-26] MEDS ORDERED: AMIL5TAB8 PO (17:20)
[2020-01-26] MEDS ORDERED: LOPE2CAP PO (17:20)
[2020-01-26] MEDS ORDERED: MAGN400C PO (17:20)
--- NOTE | 2020-01-26 17:34 | NUR ---
PATIENT NOTED WHEEZING,NOT ON DISTRESS,PAGED HOSPITALIST FOR PRN BREATHING TX.MED REC PARTIALLY COMPLETED,PATIENT STATES HE'LL CALL FAMILY FOR ATIVAN DOSE.
[2020-01-26] MEDS ORDERED: loperamide 2mg capsule PO PRN (17:35)
[2020-01-26] MEDS ORDERED: ipratropium/albuterol 3ml nebule IH PRN (17:35)
[2020-01-26] MEDS ORDERED: ALBUTEROL INHALER 1 PUFF/90 MCG INHALER IH PRN (17:35)
[2020-01-26] MEDS ORDERED: LORA-269 PO (17:36)
[2020-01-26] MEDS ORDERED: albuterol 2.5 MG/3 ML nebule NEB PRN (18:00)
--- NOTE | 2020-01-26 18:37 | NUR ---
CALLED PCU SPOKE TO SANDIE,UNKNOWN ACCEPTING RN AT THIS TIME.
[2020-01-26 18:40] VITALS: BP 117/85
--- NOTE | 2020-01-26 18:56 | NUR ---
Patient brought to floor without report being called to me. Patient in room 3024A. In no apparent distress.
[2020-01-26] MEDS: budesonide 0.5mg/2ml UD nebule IH SCH (19:04)
[2020-01-26] MEDS: carVEDilol 12.5mg tablet PO SCH (19:46)
[2020-01-26] MEDS: magnesium oxide 400mg tablet PO SCH (19:46)
[2020-01-26] MEDS: apixaban 5mg tablet PO SCH (19:46)
[2020-01-26] MEDS: furosemide 20 MG/2 ML vial IV SCH (19:47)
[2020-01-26] MEDS: K and/or MAG REPLACEMENT MC SCH (19:47)
[2020-01-26] MEDS ORDERED: albuterol 2.5 MG/3 ML nebule NEB SCH (20:00)
[2020-01-26 20:06] VITALS: BP_SYST 122; BP_SYST 129; BP_DIAS 76; BP_DIAS 82
[2020-01-26] MEDS: LORazepam 1 MG tablet PO PRN (21:55)
[2020-01-26 22:00] VITALS: BP 129/82
[2020-01-27] VITALS (7 sets, daily range): BP systolic 94–138; BP diastolic 54–80
[2020-01-27] MEDS: albuterol 2.5 MG/3 ML nebule NEB SCH ×4 (03:00→20:22)
[2020-01-27 05:55] LABS: BASOPHILS # (AUTO) 0.1 X10'3 (0-0.2); BASOPHILS % (AUTO) 1.1 % (0-1); EOSINOPHILS # (AUTO) 0.1 X10'3 (0-0.9); EOSINOPHILS % (AUTO) 1.8 % (0-6); HEMATOCRIT 26.7 % (42.0-52.0); HEMOGLOBIN 8.6 g/dl (14.0-17.9); LYMPHOCYTES # (AUTO) 1.5 X10'3 (1.1-4.8); LYMPHOCYTES % (AUTO) 19.5 % (21-51); MEAN CORPUSCULAR HEMOGLOBIN 23.2 PG (27.0-31.0); MEAN CORPUSCULAR HGB CONC 32.2 g/dL (33.0-36.5); MEAN CORPUSCULAR VOLUME 72.2 FL (78-98); MEAN PLATELET VOLUME 8.4 FL (7.4-10.4); MONOCYTES # (AUTO) 0.8 X10'3 (0-0.9); MONOCYTES % (AUTO) 10.4 % (2-12); NEUTROPHILS % (AUTO) 67.2 % (42-75); PLATELET COUNT 300 X10'3 (140-440); RED BLOOD COUNT 3.69 X10'6 (4.70-6.10); RED CELL DISTRIBUTION WIDTH 21.6 % (11.5-14.5); WHITE BLOOD COUNT 7.5 X10'3 (4.5-11.0)
--- NOTE | 2020-01-27 06:22 | NUR ---
Problems reprioritized. Patient report given, questions answered & plan of care reviewed with Madelaine DAVILA.
[2020-01-27 06:24] LABS: CHLORIDE 107 MMOL/L (99-107); GLUCOSE 92 MG/DL (70-104); POTASSIUM 3.7 MMOL/L (3.5-5.1); SODIUM 145 MMOL/L (135-145)
[2020-01-27 06:25] LABS: ALBUMIN 3.1 G/DL (3.4-5.0); ANION GAP 11 (8-16); BLOOD UREA NITROGEN 30 MG/DL (7-18); BUN/CREATININE RATIO 25.4 (5.4-32.0); CALCIUM 7.3 MG/DL (8.5-10.1); CREATININE 1.18 MG/DL (0.60-1.10); TOTAL CARBON DIOXIDE 27.2 MMOL/L (24-32); eGFR 62 ML/MIN
--- NOTE | 2020-01-27 06:25 | NUR ---
Patient in room PCU 3024. I have received report from Radha DAVILA and had the opportunity to ask questions and assume patient care.
[2020-01-27 06:31] LABS: MAGNESIUM 0.6 MG/DL (1.5-2.4)
--- NOTE | 2020-01-27 07:09 | NUR ---
Page sent to Dr. Jennings: PAGER ID: [phone] MESSAGE: [phone] Angelito Bhatia: Mag is low this AM at 0.6, replacing per protocol. Thanks, Madelaine [phone]
[2020-01-27 07:56] LABS: PLATELET ESTIMATE NORMAL
[2020-01-27 07:57] LABS: ANISOCYTOSIS 3+; HYPOCHROMASIA 2+; MICROCYTOSIS 1+; POLYCHROMASIA 1+
[2020-01-27 07:58] LABS: ACANTHOCYTES 2+; ELLIPTOCYTES 1+; SCHISTOCYTES 1+; TEAR DROP CELLS FEW
[2020-01-27] MEDS: K and/or MAG REPLACEMENT MC SCH ×2 (08:00→20:00)
[2020-01-27] MEDS: atorvastatin 20mg tablet PO SCH (08:04)
[2020-01-27] MEDS: lisinopril 20mg tablet PO SCH (08:04)
[2020-01-27] MEDS: pantoprazole 40mg Tablet.DR PO SCH (08:04)
[2020-01-27] MEDS: magnesium oxide 400mg tablet PO SCH (08:05)
[2020-01-27] MEDS: isosorbide mononitrate 30mg tab.SR.24H PO SCH (08:05)
[2020-01-27] MEDS: apixaban 5mg tablet PO SCH ×2 (08:05→20:34)
[2020-01-27] MEDS: furosemide 20 MG/2 ML vial IV SCH (08:05)
[2020-01-27] MEDS: carVEDilol 12.5mg tablet PO SCH ×2 (08:05→20:34)
[2020-01-27] MEDS: budesonide 0.5mg/2ml UD nebule IH SCH ×2 (08:16→20:22)
[2020-01-27] MEDS: LORazepam 1 MG tablet PO PRN ×2 (09:04→20:35)
[2020-01-27] MEDS ORDERED: loperamide 2mg capsule PO PRN (09:25)
[2020-01-27] MEDS: loperamide 2mg capsule PO SCH ×3 (11:36→20:34)
--- NOTE | 2020-01-27 14:18 | NUR ---
Malnutrition Consult: Pt admit DX recurrent hypomagnesemia Mg 0.3 this admit as well as persistent diarrhea. Per MD note prior admit October of this year pt diarrhea not r/t food likely medication. Pt is lactose intolerant per MD note October admit; dietary notified this admit. Noted pt takes mag-ox BID at home for replacement though this can also cause diarrhea. Possible gastritis and mild colitis present per CT this admit. Pt PO 50% avg first heart healthy meal this admit, has no scaled wt this admit though wt previously stable recent prior admits, and has no edema/wounds. At this time pt lacks minimum malnutrition criteria. Will monitor for additional criteria this admit. To f/u 01/29 for initial assessment. Addendum: 01/27/20 at [address] Amended: Links added.
--- NOTE | 2020-01-27 15:22 | NUR ---
PAGER ID: [phone] MESSAGE: [id number] Angelito Bhatia: The control cabinet assembler recommended that you change the Mag-ox 400mg to Slow-mag to reduce diarrhea. Pt hasn't had diarrhea yet today FYI. Thank you, Madelaine [phone] Addendum: 01/27/20 at 1524 by Madelaine Sharma RN [place] back from Dr. Jennings, will change mag-ox to slow-mg PO
[2020-01-27] MEDS ORDERED: ciprofloxacin 250mg tablet PO ONE (17:20)
--- NOTE | 2020-01-27 18:26 | NUR ---
Problems reprioritized. Patient report given, questions answered & plan of care reviewed with Monica DAVILA.
--- NOTE | 2020-01-27 18:49 | NUR ---
Patient in room PCU 3024. I have received report from GIOVANNI Burkett and had the opportunity to ask questions and assume patient care.
[2020-01-27] MEDS: magnesium Cl slow-release 64mg tablet PO SCH (20:34)
[2020-01-28] VITALS (8 sets, daily range): BP systolic 95–119; BP diastolic 51–74
[2020-01-28] MEDS: loperamide 2mg capsule PO SCH ×2 (01:48→08:51)
[2020-01-28] MEDS: albuterol 2.5 MG/3 ML nebule NEB SCH ×4 (02:58→20:06)
[2020-01-28 05:46] LABS: ANION GAP 8 (8-16); BLOOD UREA NITROGEN 25 MG/DL (7-18); BUN/CREATININE RATIO 23.8 (5.4-32.0); CALCIUM 7.2 MG/DL (8.5-10.1); CHLORIDE 109 MMOL/L (99-107); CREATININE 1.05 MG/DL (0.60-1.10); GLUCOSE 92 MG/DL (70-104); MAGNESIUM 1.5 MG/DL (1.5-2.4); POTASSIUM 3.7 MMOL/L (3.5-5.1); SODIUM 145 MMOL/L (135-145); TOTAL CARBON DIOXIDE 28.4 MMOL/L (24-32); eGFR 71 ML/MIN
[2020-01-28 05:47] LABS: BASOPHILS # (AUTO) 0.1 X10'3 (0-0.2); BASOPHILS % (AUTO) 1.1 % (0-1); EOSINOPHILS # (AUTO) 0.1 X10'3 (0-0.9); EOSINOPHILS % (AUTO) 2.1 % (0-6); HEMATOCRIT 25.6 % (42.0-52.0); HEMOGLOBIN 8.2 g/dl (14.0-17.9); MEAN CORPUSCULAR HEMOGLOBIN 23.1 PG (27.0-31.0); MEAN CORPUSCULAR HGB CONC 31.9 g/dL (33.0-36.5); MEAN CORPUSCULAR VOLUME 72.3 FL (78-98); MEAN PLATELET VOLUME 8.4 FL (7.4-10.4); MONOCYTES # (AUTO) 0.6 X10'3 (0-0.9); MONOCYTES % (AUTO) 9.6 % (2-12); NEUTROPHILS # (AUTO) 4.8 X10'3 (1.8-7.7); NEUTROPHILS % (AUTO) 72.2 % (42-75); PLATELET COUNT 271 X10'3 (140-440); RED BLOOD COUNT 3.54 X10'6 (4.70-6.10); RED CELL DISTRIBUTION WIDTH 21.3 % (11.5-14.5); WHITE BLOOD COUNT 6.7 X10'3 (4.5-11.0)
--- NOTE | 2020-01-28 06:17 | NUR ---
Problems reprioritized. Patient report given, questions answered & plan of care reviewed with GIOVANNI Burkett.
--- NOTE | 2020-01-28 06:45 | NUR ---
Patient in room PCU 3024. I have received report from Monica DAVILA and had the opportunity to ask questions and assume patient care.
[2020-01-28] MEDS: budesonide 0.5mg/2ml UD nebule IH SCH ×2 (07:53→20:07)
[2020-01-28] MEDS: K and/or MAG REPLACEMENT MC SCH ×2 (08:00→20:00)
[2020-01-28] MEDS: LORazepam 1 MG tablet PO PRN (08:51)
[2020-01-28] MEDS: carVEDilol 12.5mg tablet PO SCH ×2 (08:51→20:09)
[2020-01-28] MEDS: atorvastatin 20mg tablet PO SCH (08:51)
[2020-01-28] MEDS: isosorbide mononitrate 30mg tab.SR.24H PO SCH (08:51)
[2020-01-28] MEDS: magnesium Cl slow-release 64mg tablet PO SCH ×2 (08:51→20:09)
[2020-01-28] MEDS: apixaban 5mg tablet PO SCH (08:52)
[2020-01-28] MEDS: lisinopril 20mg tablet PO SCH (08:52)
[2020-01-28] MEDS: pantoprazole 40mg Tablet.DR PO SCH (08:55)
[2020-01-28 10:07] LABS: ACANTHOCYTES 2+; ANISOCYTOSIS 3+; MICROCYTOSIS 1+; PLATELET ESTIMATE NORMAL; SCHISTOCYTES 1+
[2020-01-28 10:08] LABS: ELLIPTOCYTES 1+; HYPOCHROMASIA 1+; POIKILOCYTOSIS 1+; POLYCHROMASIA FEW
[2020-01-28 10:11] LABS: LARGE PLATELETS FEW
[2020-01-28] MEDS ORDERED: IRON DEXTRAN COMPLEX IV ONE ×2 (16:50→19:00)
[2020-01-28] MEDS ORDERED: NORMAL SALINE IV ONE ×2 (16:50→19:00)
[2020-01-28] MEDS ORDERED: iron dextran complex inj. 25 MG in normal saline 50ml IV soln 49.5 ML IV ONE (17:22)
--- NOTE | 2020-01-28 18:27 | NUR ---
Problems reprioritized. Patient report given, questions answered & plan of care reviewed with Monica DAVILA.
[2020-01-28] MEDS: famotidine 20mg tablet PO SCH (20:08)
[2020-01-28] MEDS: furosemide 20 MG/2 ML vial IV SCH (20:09)
[2020-01-28] MEDS ORDERED: temazepam 15mg capsule PO ONE (22:10)
[2020-01-29] VITALS (7 sets, daily range): BP systolic 104–133; BP diastolic 59–87
[2020-01-29] MEDS: albuterol 2.5 MG/3 ML nebule NEB SCH ×4 (03:00→21:00)
--- NOTE | 2020-01-29 03:13 | NUR ---
Patient in room PCU 3024. I have received report from GIOVANNI Burkett and had the opportunity to ask questions and assume patient care.
[2020-01-29 05:32] LABS: BASOPHILS # (AUTO) 0.1 X10'3 (0-0.2); EOSINOPHILS # (AUTO) 0.1 X10'3 (0-0.9); EOSINOPHILS % (AUTO) 2.1 % (0-6); HEMOGLOBIN 8.2 g/dl (14.0-17.9); LYMPHOCYTES # (AUTO) 1.4 X10'3 (1.1-4.8); LYMPHOCYTES % (AUTO) 21.4 % (21-51); MEAN CORPUSCULAR HEMOGLOBIN 23.9 PG (27.0-31.0); MEAN CORPUSCULAR HGB CONC 32.7 g/dL (33.0-36.5); MEAN CORPUSCULAR VOLUME 73.1 FL (78-98); MEAN PLATELET VOLUME 8.1 FL (7.4-10.4); MONOCYTES # (AUTO) 0.7 X10'3 (0-0.9); MONOCYTES % (AUTO) 10.7 % (2-12); NEUTROPHILS # (AUTO) 4.2 X10'3 (1.8-7.7); NEUTROPHILS % (AUTO) 64.8 % (42-75); PLATELET COUNT 260 X10'3 (140-440); RED BLOOD COUNT 3.43 X10'6 (4.70-6.10); RED CELL DISTRIBUTION WIDTH 21.2 % (11.5-14.5); WHITE BLOOD COUNT 6.4 X10'3 (4.5-11.0)
[2020-01-29 05:38] LABS: ANION GAP 9 (8-16); BLOOD UREA NITROGEN 23 MG/DL (7-18); CALCIUM 8.7 MG/DL (8.5-10.1); CHLORIDE 109 MMOL/L (99-107); GLUCOSE 100 MG/DL (70-104); MAGNESIUM 1.4 MG/DL (1.5-2.4); SODIUM 145 MMOL/L (135-145); TOTAL CARBON DIOXIDE 26.6 MMOL/L (24-32); eGFR 75 ML/MIN
--- NOTE | 2020-01-29 06:45 | NUR ---
Patient in room PCU 3024. I have received report from GIOVANNI Anderson and had the opportunity to ask questions and assume patient care.
[2020-01-29] MEDS: K and/or MAG REPLACEMENT MC SCH ×2 (08:00→20:00)
[2020-01-29] MEDS: famotidine 20mg tablet PO SCH ×2 (08:00→20:30)
[2020-01-29] MEDS: carVEDilol 12.5mg tablet PO SCH ×2 (08:00→20:31)
[2020-01-29] MEDS: isosorbide mononitrate 30mg tab.SR.24H PO SCH (08:00)
[2020-01-29] MEDS: lisinopril 10 MG tablet PO SCH (08:01)
[2020-01-29] MEDS: atorvastatin 20mg tablet PO SCH (08:01)
[2020-01-29] MEDS: magnesium Cl slow-release 64mg tablet PO SCH ×2 (08:01→20:31)
[2020-01-29] MEDS: furosemide 20 MG/2 ML vial IV SCH ×5 (08:02→20:55)
[2020-01-29] MEDS: LORazepam 1 MG tablet PO PRN ×2 (08:03→16:57)
--- NOTE | 2020-01-29 08:31 | NUR ---
3024a- Angelito Bhatia- pt c/o left chest pain crushing 08/07 no radiating. ekg abnormal, vs 109/66, 92, 22, 99%Ra. I can bring to you if you like. - thank you mendy [phone]
[2020-01-29] MEDS: budesonide 0.5mg/2ml UD nebule IH SCH ×2 (08:33→20:00)
--- NOTE | 2020-01-29 08:39 | NUR ---
EKG results taken down to ER Dr. Thomas Romero. No STEMI. Dr. Griggs will be notified again.
[2020-01-29] MEDS ORDERED: PEG 3350/Na sulf,bicarb,Cl/KCl oral sol 4 liter bottle PO ONE (09:30)
--- NOTE | 2020-01-29 09:40 | NUR ---
Dr. Griggs in to see patient. Per Dr. Griggs patient "doesn't want anything done now. He wants to see Dr. Reyna at home."
[2020-01-29 09:46] LABS: ACANTHOCYTES 2+; ANISOCYTOSIS 3+; MICROCYTOSIS 1+; PLATELET ESTIMATE NORMAL; POIKILOCYTOSIS 1+; SCHISTOCYTES 1+
[2020-01-29 09:47] LABS: ELLIPTOCYTES 1+; HYPOCHROMASIA 2+
[2020-01-29 09:48] LABS: BURR CELLS 1+
--- NOTE | 2020-01-29 16:58 | NUR ---
Patient anxious, teary eyed. Ativan 1mg PO was given 0800 and too soon to give another dose as it is BID but spoke to Dr. Griggs and he okay'ed to give patient early dose.
--- NOTE | 2020-01-29 18:05 | NUR ---
Patient in room PCU 3024. I have received report from GIOVANNI Cerna and had the opportunity to ask questions and assume patient care.
--- NOTE | 2020-01-29 18:16 | NUR ---
Problems reprioritized. Patient report given, questions answered & plan of care reviewed with GIOVANNI Anderson.
[2020-01-29] MEDS: NYSTATIN CREAM - 30GM TUBE TP SCH (20:31)
[2020-01-30] VITALS (8 sets, daily range): BP systolic 109–156; BP diastolic 64–92
[2020-01-30] MEDS: albuterol 2.5 MG/3 ML nebule NEB SCH (02:33)
[2020-01-30 05:19] LABS: BASOPHILS # (AUTO) 0.1 X10'3 (0-0.2); BASOPHILS % (AUTO) 1.3 % (0-1); EOSINOPHILS # (AUTO) 0.2 X10'3 (0-0.9); EOSINOPHILS % (AUTO) 3.1 % (0-6); HEMATOCRIT 27.6 % (42.0-52.0); HEMOGLOBIN 8.8 g/dl (14.0-17.9); LYMPHOCYTES # (AUTO) 1.4 X10'3 (1.1-4.8); LYMPHOCYTES % (AUTO) 20.9 % (21-51); MEAN CORPUSCULAR HEMOGLOBIN 23.3 PG (27.0-31.0); MEAN CORPUSCULAR HGB CONC 32.1 g/dL (33.0-36.5); MEAN CORPUSCULAR VOLUME 72.8 FL (78-98); MEAN PLATELET VOLUME 8.3 FL (7.4-10.4); MONOCYTES # (AUTO) 0.8 X10'3 (0-0.9); MONOCYTES % (AUTO) 11.9 % (2-12); NEUTROPHILS # (AUTO) 4.2 X10'3 (1.8-7.7); NEUTROPHILS % (AUTO) 62.8 % (42-75); PLATELET COUNT 296 X10'3 (140-440); RED BLOOD COUNT 3.79 X10'6 (4.70-6.10); RED CELL DISTRIBUTION WIDTH 21.4 % (11.5-14.5); WHITE BLOOD COUNT 6.6 X10'3 (4.5-11.0)
[2020-01-30 05:30] LABS: ALBUMIN 3.3 G/DL (3.4-5.0); ANION GAP 7 (8-16); BLOOD UREA NITROGEN 16 MG/DL (7-18); BUN/CREATININE RATIO 15.7 (5.4-32.0); CALCIUM 8.4 MG/DL (8.5-10.1); CHLORIDE 106 MMOL/L (99-107); CREATININE 1.02 MG/DL (0.60-1.10); GLUCOSE 96 MG/DL (70-104); MAGNESIUM 1.3 MG/DL (1.5-2.4); SODIUM 142 MMOL/L (135-145); TOTAL CARBON DIOXIDE 28.8 MMOL/L (24-32); eGFR 73 ML/MIN
[2020-01-30 05:32] LABS: POTASSIUM 4.1 MMOL/L (3.5-5.1)
--- NOTE | 2020-01-30 06:23 | NUR ---
Problems reprioritized. Patient report given, questions answered & plan of care reviewed with GIOVANNI Rose.
[2020-01-30] MEDS: furosemide 20 MG/2 ML vial IV SCH (07:25)
[2020-01-30 07:56] LABS: ANISOCYTOSIS 3+; MICROCYTOSIS 1+; PLATELET ESTIMATE NORMAL
[2020-01-30 07:57] LABS: ACANTHOCYTES 1+; BURR CELLS 1+; ELLIPTOCYTES 1+; HYPOCHROMASIA 2+; POIKILOCYTOSIS 2+; SCHISTOCYTES 1+
[2020-01-30] MEDS: NYSTATIN CREAM - 30GM TUBE TP SCH (08:00)
[2020-01-30] MEDS: carVEDilol 12.5mg tablet PO SCH (08:00)
[2020-01-30] MEDS: lisinopril 10 MG tablet PO SCH (08:00)
[2020-01-30] MEDS: K and/or MAG REPLACEMENT MC SCH (08:00)
[2020-01-30] MEDS: isosorbide mononitrate 30mg tab.SR.24H PO SCH (08:00)
[2020-01-30] MEDS: famotidine 20mg tablet PO SCH (08:00)
[2020-01-30] MEDS: loperamide 2mg capsule PO SCH ×2 (08:00→14:00)
[2020-01-30] MEDS: atorvastatin 20mg tablet PO SCH (08:00)
[2020-01-30] MEDS: magnesium Cl slow-release 64mg tablet PO SCH ×2 (08:00→10:21)
--- NOTE | 2020-01-30 09:26 | NUR ---
Patient is NPO for GI lab, paged. [phone], Reba Bhatia. patient is NPO for colonoscopy. Patient mag is 1.3 but has no IV mag. Patient is also very anxious but has no IV Ativan. Did you want to order IV mag and Ativan?
[2020-01-30] MEDS: LORazepam 1 MG tablet PO PRN (10:21)
[2020-01-30] MEDS ORDERED: fentaNYL/PF 50MCG/1 ML 2ML syringe ONE ×2 (10:27→11:41)
[2020-01-30] MEDS ORDERED: MIDAZolam 5mg/5ml vial ONE ×2 (10:28→11:41)
--- NOTE | 2020-01-30 10:30 | NUR ---
Went to give patient oral ativan per MD Griggs, GI lab arrived during med pass and stated to hold. PO meds were held for colonoscopy.
--- NOTE | 2020-01-30 11:00 | NUR ---
patient in GI lab for 1100 vitals
--- NOTE | 2020-01-30 12:56 | NUR ---
Initial: Pt admit with severe hypomagnesemia possibly r/t diarrhea. Pt also with hypokalemia (now WNL) and hypocalcemia on admit. Pt receiving mag replacement as well as routine Imodium for diarrhea. Pt previously on a heart healthy diet initially with 50% PO intake up to 100% PO intake, currently on a full liquid diet with average 75% PO intake. Pt NPO at breakfast and in GI lab for colonoscopy at this time. Pt with low MCV 72.8, iron 21, and %sat 7, to get iron replacement for iron deficiency anemia per MD note. Noted that pt only received iron replacement on 01/27 and with no active orders for continuance of replacement. D/w RN recommendation for MVM, iron, and Ca replacement with MD approval. LBM 01/28. Will continue to follow and monitor need for nutrition intervention. Recommendations: 1) Resume heart healthy diet as medically indicated 2) Bowel care per rx 3) Scaled weights per rx 4) Consider MVM, iron, and Ca supplementation with MD approval, d/w RN Addendum: 01/30/20 at [address] Amended: Links added.
--- NOTE | 2020-01-30 13:05 | NUR ---
Paged MD regarding brim ironer hand recommendations for multivit-minerals, calcium, and iron and restarting patient diet.
[2020-01-30] MEDS ORDERED: FURO-150 PO (14:40)
--- NOTE | 2020-01-30 14:55 | NUR ---
patient morning meds were held for colonoscopy, patient refused morning meds once returned from GI lab.
--- NOTE | 2020-01-30 16:39 | NUR ---
Per MD Griggs patient is to hold eliquis for three additional days and to resume on 02/02. A note was made on patient discharge instructions indicating so. Addendum: 01/30/20 at 1641 by Rose Sutton RN Also bolded with Green kelviner
--- NOTE | 2020-01-30 16:45 | NUR ---
Patient discharged home into the care of friend. Patient d/c delayed by transportation, initially tried to secure taxi but eventually said friend became available. Patient alert, oriented, and appropriate for discharge. 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 Per MD Griggs patient eliquis to be held for additional three days to be resumed on 02/02. Patient verbalized understanding of this instruction. Patient Medications sent [facility]. Patient IV removed, patient tele removed, patient verbalized understanding of discharge instructions and will follow up as appropriate.
== END 2020-01-30 16:48 | disposition home or self-care (01) | DRG 391 ==
LOC: ER 11:33 → ED HOLD 13:21 → EDBEDREQ 18:33 → PCU 3S 18:50
PROVIDERS: ADMIT Internal Medicine; ATTEND Internal Medicine
PROC: 0DBN8ZZ Excision of Sigmoid Colon, Via Natural or Artificial Opening Endoscopic (ICD-10-PCS; principal; 2020-01-30)
PROC: 0DBE8ZX Excision of Large Intestine, Via Natural or Artificial Opening Endoscopic, Diagnostic (ICD-10-PCS; 2020-01-30)
DX: K52.9 Noninfective gastroenteritis and colitis, unspecified (principal); I50.23 Acute on chronic systolic (congestive) heart failure; N17.9 Acute kidney failure, unspecified; R18.8 Other ascites; E83.42 Hypomagnesemia; D50.9 Iron deficiency anemia, unspecified; E78.00 Pure hypercholesterolemia, unspecified; E78.5 Hyperlipidemia, unspecified; E83.51 Hypocalcemia; E87.6 Hypokalemia; I25.10 Atherosclerotic heart disease of native coronary artery without angina pectoris; I48.0 Paroxysmal atrial fibrillation; J44.9 Chronic obstructive pulmonary disease, unspecified; K57.30 Diverticulosis of large intestine without perforation or abscess without bleeding; K74.60 Unspecified cirrhosis of liver; I11.0 Hypertensive heart disease with heart failure; K63.5 Polyp of colon; K64.8 Other hemorrhoids; Z20.828 Contact with and (suspected) exposure to other viral communicable diseases; Z79.899 Other long term (current) drug therapy; I25.2 Old myocardial infarction; Z87.891 Personal history of nicotine dependence; Z90.49 Acquired absence of other specified parts of digestive tract; Z95.0 Presence of cardiac pacemaker; Z95.1 Presence of aortocoronary bypass graft; Z82.0 Family history of epilepsy and other diseases of the nervous system
CPT/HCPCS: 36415; 45380; 45385; 71045; 74176; 80048; 80053; 82306; 82728; 83540; 83550; 83605; 83735; 83880; 83970; 84100; 84145; 84484; 85008; 85025; 85610; 85651; 87081; 93005; 94640; 94760; 96365; 96375; 97116; 97161; 97530; 99152; 99153; 99291; A4620; C1773; G0378; J1750; J1940; J2060; J2250; J3010; J3475; J3490; J7040; J7626

== ENCOUNTER 2020-11-03 06:57 | Emergency (ER) | payer MEDICARE, OTHER ==
[~2020-11-03] VITALS: Ht 177.8 cm; Wt 75.0 kg
[~2020-11-03 06:57] MED LIST changes: +ALBU8.5H17 IH; -ALBU8.5H8 IH; +CALC-157 PO; +CALC0.2511 PO; +CARV-50 PO; -CARV25TA2 PO; +FERR325T29 PO; +FURO20TA4 PO; -HYDR-4353 PO; -ISOS30TA6 PO; +ISOS60TA71 PO; -LISI-600 PO; +LISI2.5T14 PO; +LOPE2CAP PO; +MAGN400T28 PO; -MAGN400T29 PO; -NITR0.4T51 SL; -OMEP20CA15 PO; +POTA20TA19 PO; -SERT25TA5 PO
[2020-11-03 07:09] VITALS: BP 113/72
[2020-11-03] MEDS ORDERED: SULF1TAB45 PO (08:37)
[2020-11-03] MEDS ORDERED: ERYT1OIN6 RIGHTEYE (08:37)
== END 2020-11-03 09:03 | disposition home or self-care (01) ==
LOC: ER 06:57
DX: H00.011 Hordeolum externum right upper eyelid (principal); I48.91 Unspecified atrial fibrillation; I25.10 Atherosclerotic heart disease of native coronary artery without angina pectoris; E78.00 Pure hypercholesterolemia, unspecified; I11.0 Hypertensive heart disease with heart failure; I50.9 Heart failure, unspecified; I25.2 Old myocardial infarction; K21.9 Gastro-esophageal reflux disease without esophagitis; F12.90 Cannabis use, unspecified, uncomplicated; Z90.49 Acquired absence of other specified parts of digestive tract; Z95.0 Presence of cardiac pacemaker; Z95.5 Presence of coronary angioplasty implant and graft; Z72.89 Other problems related to lifestyle; Z88.8 Allergy status to other drugs, medicaments and biological substances; Z79.899 Other long term (current) drug therapy
CPT/HCPCS: 99283

== ENCOUNTER 2021-07-18 20:46 | Emergency (ER) | payer MEDICARE, OTHER ==
[~2021-07-18] VITALS: Ht 177.8 cm; Wt 75.0 kg
[~2021-07-18 20:46] MED LIST changes: -MAGN400T28 PO; +MAGN400T56 PO; +POTA-207 PO; -POTA20TA19 PO
[2021-07-18 20:52] VITALS: BP 106/59
== END 2021-07-18 21:42 | disposition home or self-care (01) ==
LOC: ER 20:47
DX: S30.813A Abrasion of scrotum and testes, initial encounter (principal); I48.91 Unspecified atrial fibrillation; I25.10 Atherosclerotic heart disease of native coronary artery without angina pectoris; I11.0 Hypertensive heart disease with heart failure; I50.9 Heart failure, unspecified; E78.00 Pure hypercholesterolemia, unspecified; I25.2 Old myocardial infarction; K21.9 Gastro-esophageal reflux disease without esophagitis; F12.90 Cannabis use, unspecified, uncomplicated; Z90.49 Acquired absence of other specified parts of digestive tract; Z95.5 Presence of coronary angioplasty implant and graft; Z95.0 Presence of cardiac pacemaker; Z72.89 Other problems related to lifestyle; Z88.8 Allergy status to other drugs, medicaments and biological substances; Z79.899 Other long term (current) drug therapy; Z79.01 Long term (current) use of anticoagulants; X58.XXXA Exposure to other specified factors, initial encounter; Y93.89 Activity, other specified; Y92.89 Other specified places as the place of occurrence of the external cause; Y99.8 Other external cause status
CPT/HCPCS: 99281

== ENCOUNTER 2022-09-08 08:58 | Emergency (ER) | payer MEDICARE, OTHER ==
[~2022-09-08] VITALS: Ht 177.8 cm; Wt 80.0 kg
[2022-09-08] MEDS ORDERED: magnesium 2GM in 50ml NS 50 ML IV ONE (09:20)
[2022-09-08] MEDS ORDERED: ipratropium/albuterol 3ml nebule NEB ONE (09:20)
[2022-09-08] MEDS ORDERED: furosemide 10 MG/1 ML 10ml inj IV ONE (09:20)
[2022-09-08] MEDS ORDERED: LORazepam 2 mg/ml vial IV ONE (09:20)
[2022-09-08] MEDS ORDERED: methylPREDNISolone sod succ 125mg/2ml vial IV ONE (09:20)
[2022-09-08 09:22] LABS: BASOPHILS # (AUTO) 0.1 X10'3 (0-0.2); BASOPHILS % (AUTO) 1.8 % (0-1); EOSINOPHILS % (AUTO) 0.6 % (0-6); HEMATOCRIT 40.1 % (42.0-52.0); HEMOGLOBIN 13.4 g/dl (14.0-17.9); LYMPHOCYTES # (AUTO) 0.8 X10'3 (1.1-4.8); LYMPHOCYTES % (AUTO) 17.1 % (21-51); MEAN CORPUSCULAR HEMOGLOBIN 31.5 PG (27.0-31.0); MEAN CORPUSCULAR HGB CONC 33.4 g/dL (33.0-36.5); MEAN CORPUSCULAR VOLUME 94.4 FL (78-98); MEAN PLATELET VOLUME 7.9 FL (7.4-10.4); MONOCYTES # (AUTO) 0.8 X10'3 (0-0.9); MONOCYTES % (AUTO) 17.4 % (2-12); NEUTROPHILS % (AUTO) 63.1 % (42-75); PLATELET COUNT 176 X10'3 (140-440); RED BLOOD COUNT 4.25 X10'6 (4.70-6.10); RED CELL DISTRIBUTION WIDTH 16.6 % (11.5-14.5); WHITE BLOOD COUNT 4.7 X10'3 (4.5-11.0)
[2022-09-08 09:37] LABS: ALANINE AMINOTRANSFERASE 47 U/L (12-78); ALBUMIN 3.8 G/DL (3.4-5.0); ALBUMIN/GLOBULIN RATIO 1.2 (1.1-1.5); ALKALINE PHOSPHATASE 72 IU/L (46-116); ANION GAP 9 (8-16); ASPARTATE AMINO TRANSFERASE 34 U/L (10-37); BILIRUBIN,TOTAL 1.3 MG/DL (0.1-1.0); BLOOD UREA NITROGEN 12 MG/DL (7-18); BUN/CREATININE RATIO 8.8 (10.0-20.0); CALCIUM 8.9 MG/DL (8.5-10.1); CHLORIDE 99 MMOL/L (99-107); CREATININE 1.37 MG/DL (0.60-1.10); GLUCOSE 97 MG/DL (70-104); POTASSIUM 4.3 MMOL/L (3.5-5.1); SODIUM 133 MMOL/L (135-145); TOTAL CARBON DIOXIDE 24.8 MMOL/L (24-32); TOTAL PROTEIN 7.1 G/DL (6.4-8.2); eGFR 52 ML/MIN
--- NOTE | 2022-09-08 09:49 | NUR ---
RT paged for breathing tx. Placed on SPO2 monitoring and Q15 BP
[2022-09-08] MEDS ORDERED: POTA-192 PO (10:52)
[2022-09-08] MEDS ORDERED: FURO-150 PO (10:52)
[2022-09-08 11:05] VITALS: BP 108/58
== END 2022-09-08 11:06 | disposition home or self-care (01) ==
LOC: ER 08:59
DX: J44.1 Chronic obstructive pulmonary disease with (acute) exacerbation (principal); I48.20 Chronic atrial fibrillation, unspecified; F41.9 Anxiety disorder, unspecified; R07.89 Other chest pain; I11.0 Hypertensive heart disease with heart failure; I50.9 Heart failure, unspecified; E78.00 Pure hypercholesterolemia, unspecified; K21.9 Gastro-esophageal reflux disease without esophagitis; F12.90 Cannabis use, unspecified, uncomplicated; Z88.5 Allergy status to narcotic agent
CPT/HCPCS: 36415; 71045; 80053; 83880; 84484; 85025; 85610; 93005; 94640; 96365; 96375; 99285; J1940; J2060; J2930; J3475; 94760

== ENCOUNTER 2022-12-31 14:58 | Inpatient (IN) | payer MEDICARE, OTHER ==
[~2022-12-31] VITALS: Ht 177.8 cm; Wt 68.2 kg
[~2022-12-31 14:58] MED LIST changes: -ALBU8.5H17 IH; -AMIL5TAB8 PO; -APIX5TAB3 PO; -BUDE10.22 INH; -CALC-157 PO; -CALC0.2511 PO; -CARV-50 PO; +CARV25TA2 PO; -DIGO125T PO; -FERR325T29 PO; -IPRA3AMP9 IH; +IPRA3AMP9 NEB; -ISOS60TA71 PO; -LISI2.5T14 PO; +LISI40TA13 PO; -LOPE2CAP PO; -MAGN400T56 PO; +PANT-47 PO; +POTA-206 PO; -POTA-207 PO; +WARF-55 PO
[2022-12-31] MEDS ORDERED: normal saline 500ml IV soln 500 ML IV ONE (16:00)
[2022-12-31 17:36] LABS: ALANINE AMINOTRANSFERASE 18 U/L (12-78); ALBUMIN 3.3 G/DL (3.4-5.0); ALBUMIN/GLOBULIN RATIO 0.9 (1.1-1.5); ALKALINE PHOSPHATASE 76 IU/L (46-116); ANION GAP 15 (8-16); ASPARTATE AMINO TRANSFERASE 14 U/L (10-37); BILIRUBIN,TOTAL 1.6 MG/DL (0.1-1.0); BLOOD UREA NITROGEN 51 MG/DL (7-18); BUN/CREATININE RATIO 14.4 (10.0-20.0); CALCIUM 7.3 MG/DL (8.5-10.1); CHLORIDE 100 MMOL/L (99-107); CREATININE 3.55 MG/DL (0.60-1.10); GLUCOSE 82 MG/DL (70-104); POTASSIUM 3.4 MMOL/L (3.5-5.1); SODIUM 137 MMOL/L (135-145); TOTAL CARBON DIOXIDE 22.3 MMOL/L (24-32); eCRCL 19 ML/MIN; eGFR 17 ML/MIN
[2022-12-31 17:40] LABS: ETHANOL < 10 MG/DL (<10); LIPASE 143 U/L (16-77)
--- NOTE | 2022-12-31 18:16 | NUR ---
REVIEWED AND AGREE WITH ASSESSMENT
[2022-12-31] MEDS ORDERED: normal saline 1000ML IV soln IVB ONE ×2 (18:45→19:35)
[2022-12-31 19:30] LABS: BASOPHILS # (AUTO) 0.1 X10'3 (0-0.2); BASOPHILS % (AUTO) 0.4 % (0-1); EOSINOPHILS # (AUTO) 0.2 X10'3 (0-0.9); EOSINOPHILS % (AUTO) 1.3 % (0-6); LYMPHOCYTES # (AUTO) 1.1 X10'3 (1.1-4.8); LYMPHOCYTES % (AUTO) 8.8 % (21-51); MEAN CORPUSCULAR HEMOGLOBIN 30.2 PG (27.0-31.0); MEAN CORPUSCULAR HGB CONC 33.2 g/dL (33.0-36.5); MEAN CORPUSCULAR VOLUME 90.8 FL (78-98); MONOCYTES # (AUTO) 1.4 X10'3 (0-0.9); MONOCYTES % (AUTO) 11.6 % (2-12); NEUTROPHILS # (AUTO) 9.3 X10'3 (1.8-7.7); NEUTROPHILS % (AUTO) 77.9 % (42-75); PLATELET COUNT 245 X10'3 (140-440); RED BLOOD COUNT 4.96 X10'6 (4.70-6.10); RED CELL DISTRIBUTION WIDTH 15.8 % (11.5-14.5)
[2022-12-31] MEDS ORDERED: ondansetron/PF 4mg/2ml inj IV ONE (19:45)
--- NOTE | 2022-12-31 19:45 | NUR ---
MD aware of BP. fluids ordered
--- NOTE | 2022-12-31 19:57 | NUR ---
fluids are running. afebrile. BP hypotensive with a map of 69
--- NOTE | 2022-12-31 20:44 | NUR ---
pt up to bsc independently. VSS
[2022-12-31] MEDS ORDERED: albuterol 2.5 MG/3 ML nebule NEB ONE (20:45)
[2022-12-31] MEDS ORDERED: ipratropium 0.5 MG/2.5ML nebule IH ONE (20:45)
[2022-12-31] MEDS ORDERED: normal saline 1000ml 1,000 ML IV ONE (21:00)
[2022-12-31] MEDS ORDERED: ipratropium/albuterol 3ml nebule NEB ONE (21:10)
[2022-12-31 21:15] VITALS: PULSE 98; RESP 8; O2SAT 96
[2022-12-31 21:24] VITALS: PULSE 99; RESP 23; O2SAT 96
[2022-12-31 22:31] LABS: OCCULT BLOOD STOOL POSITIVE (Neg)
--- NOTE | 2022-12-31 22:33 | NUR ---
Bp hypotensive, map 61
[2023-01-01] VITALS (7 sets, daily range): BP systolic 99–126; BP diastolic 44–71; PULSE 63–87; RESP 18–26; TEMP 97.7–97.8; O2SAT 95–98
--- NOTE | 2023-01-01 00:29 | NUR ---
MD aware of BP, map of 65
[2023-01-01] MEDS ORDERED: magnesium Cl slow-release 64mg tablet PO PRN (01:30)
[2023-01-01] MEDS ORDERED: magnesium 2GM in 50ml NS 50 ML IV PRN (01:30)
[2023-01-01] MEDS ORDERED: magnesium 4gm in 100ml NS 100 ML IV PRN (01:30)
[2023-01-01] MEDS ORDERED: ondansetron/PF 4mg/2ml inj IV PRN (01:30)
[2023-01-01] MEDS ORDERED: normal saline 1000ml 1,000 ML IV SCH (01:30)
[2023-01-01] MEDS ORDERED: potassium Cl 20 mEq SR tablet PO PRN ×2 (01:30)
[2023-01-01] MEDS ORDERED: acetaminophen 325mg tablet PO PRN (01:30)
[2023-01-01] MEDS ORDERED: mag hydrox/Alum hydrox/simeth 30ml oral suspension PO PRN (01:30)
[2023-01-01] MEDS ORDERED: potassium Cl 40MEQ/1/2NS 520ml 520 ML IV PRN (01:30)
[2023-01-01] MEDS ORDERED: magnesium hydroxide 30ml (MOM) UD suspension PO PRN (01:30)
[2023-01-01 02:58] LABS: POTASSIUM 3.1 MMOL/L (3.5-5.1)
[2023-01-01 03:09] LABS: MAGNESIUM 0.6 MG/DL (1.5-2.4)
[2023-01-01] MEDS ORDERED: albuterol 2.5 MG/3 ML nebule NEB ONE (03:40)
[2023-01-01 06:37] LABS: C DIFF ANTIGEN NEGATIVE (NEGATIVE); C DIFF SPECIMEN=DIARRHEA? ACCEPTABLE; C DIFFICILE TOXINS A&B NEGATIVE (Neg)
--- NOTE | 2023-01-01 06:48 | NUR ---
Ativan [address] Castillo
[2023-01-01] MEDS ORDERED: LORazepam 2 mg/ml vial IM ONE (06:55)
[2023-01-01] MEDS: K and/or MAG REPLACEMENT MC SCH ×2 (06:58→20:00)
--- NOTE | 2023-01-01 07:08 | NUR ---
PER LEI SCHULZ ORD ATIVAN IV AND ORD WAS ENTERED IM IN ERROR. ATIVAN GIVEN IV BY THIS RN.
--- NOTE | 2023-01-01 07:10 | NUR ---
placed verbal order verbal was stated for 1 mg ativan iv not im XPLVN
[2023-01-01] MEDS: docusate sod 100mg capsule PO SCH ×2 (07:18→20:00)
--- NOTE | 2023-01-01 07:58 | NUR ---
60 meq potassium oral to give now, recheck mag and potassium at noon per Dr keenan. XPLVN
--- NOTE | 2023-01-01 08:00 | NUR ---
Dr. Vaughan is the assigned hospitalist resident called to give verbal orders
[2023-01-01 08:43] LABS: BASOPHILS # (AUTO) 0.1 X10'3 (0-0.2); EOSINOPHILS # (AUTO) 0.3 X10'3 (0-0.9); EOSINOPHILS % (AUTO) 3.8 % (0-6); HEMATOCRIT 39.2 % (42.0-52.0); HEMOGLOBIN 13.1 g/dl (14.0-17.9); LYMPHOCYTES % (AUTO) 11.5 % (21-51); MEAN CORPUSCULAR HEMOGLOBIN 30.6 PG (27.0-31.0); MEAN CORPUSCULAR HGB CONC 33.5 g/dL (33.0-36.5); MEAN CORPUSCULAR VOLUME 91.2 FL (78-98); MEAN PLATELET VOLUME 8.5 FL (7.4-10.4); MONOCYTES # (AUTO) 1.4 X10'3 (0-0.9); MONOCYTES % (AUTO) 15.7 % (2-12); NEUTROPHILS # (AUTO) 6.1 X10'3 (1.8-7.7); PLATELET COUNT 211 X10'3 (140-440); RED CELL DISTRIBUTION WIDTH 15.1 % (11.5-14.5)
[2023-01-01 08:44] LABS: ALANINE AMINOTRANSFERASE 10 U/L (12-78); ALBUMIN 2.7 G/DL (3.4-5.0); ALBUMIN/GLOBULIN RATIO 0.9 (1.1-1.5); ALKALINE PHOSPHATASE 65 IU/L (46-116); ANION GAP 13 (8-16); ASPARTATE AMINO TRANSFERASE 15 U/L (10-37); BILIRUBIN,TOTAL 1.1 MG/DL (0.1-1.0); BLOOD UREA NITROGEN 43 MG/DL (7-18); BUN/CREATININE RATIO 20.6 (10.0-20.0); CALCIUM 6.8 MG/DL (8.5-10.1); CHLORIDE 106 MMOL/L (99-107); CREATININE 2.09 MG/DL (0.60-1.10); GLUCOSE 63 MG/DL (70-104); POTASSIUM 3.3 MMOL/L (3.5-5.1); SODIUM 138 MMOL/L (135-145); TOTAL CARBON DIOXIDE 18.8 MMOL/L (24-32); TOTAL PROTEIN 5.7 G/DL (6.4-8.2); eCRCL 32 ML/MIN; eGFR 32 ML/MIN
[2023-01-01] MEDS ORDERED: meperidine/PF 25mg/ml syringe IV PRN (09:35)
[2023-01-01 12:16] LABS: MAGNESIUM 2.6 MG/DL (1.5-2.4); POTASSIUM 3.5 MMOL/L (3.5-5.1)
[2023-01-01] MEDS: sodium bicarbonate (8.4%) inj. 100 MEQ in dextrose 5%-water 1,000 ML IV SCH (12:55)
[2023-01-01 14:41] LABS: BILIRUBIN,URINE NEGATIVE (Neg); CLARITY,URINE CLEAR (Clear); COLOR,URINE YELLOW (Yellow); GLUCOSE, URINE NEGATIVE (Neg); KETONES,URINE NEGATIVE (Neg); LEUKOCYTE ESTERASE ,URINE NEGATIVE (Neg); NITRITES, URINE NEGATIVE (Neg); OCCULT BLOOD,URINE TRACE-INTACT (Neg); PH,URINE 5.5 (4.8-8.0); PROTEIN,URINE NEGATIVE (Neg); UROBILINOGEN,URINE 0.2 E.U/dL (0.2-1.0)
[2023-01-01 14:47] LABS: BACTERIA,URINE NONE SEEN /HPF (Neg); MUCUS STRANDS NONE SEEN /LPF (Neg); RBC,URINE 0-2 /HPF (0-2); SQUAMOUS EPITHELIAL CELL,UR FEW /LPF (FEW); UA COLLECTION TYPE URINAL; WBC,URINE NONE SEEN /HPF (0-4)
[2023-01-01 14:54] LABS: HEMATOCRIT 41.6 % (42.0-52.0); HEMOGLOBIN 13.5 g/dl (14.0-17.9); MEAN CORPUSCULAR HEMOGLOBIN 29.9 PG (27.0-31.0); MEAN CORPUSCULAR HGB CONC 32.6 g/dL (33.0-36.5); MEAN CORPUSCULAR VOLUME 91.9 FL (78-98); MEAN PLATELET VOLUME 8.1 FL (7.4-10.4); PLATELET COUNT 219 X10'3 (140-440); RED BLOOD COUNT 4.52 X10'6 (4.70-6.10); RED CELL DISTRIBUTION WIDTH 15.4 % (11.5-14.5); WHITE BLOOD COUNT 9.4 X10'3 (4.5-11.0)
--- NOTE | 2023-01-01 15:05 | NUR ---
paged dr panda in regards to holding off on protonix as sodium bicard is running and pt does not want another iv as he has a bad history with people missing
[2023-01-01] MEDS: pantoprazole 40MG/NS 100ML BAG 100 ML IV SCH (16:33)
[2023-01-01] MEDS ORDERED: PANT-47 PO (16:59)
[2023-01-01] MEDS ORDERED: DABI150C PO (16:59)
--- NOTE | 2023-01-01 17:06 | NUR ---
assisting Adelina SCHULTZ with pt care, called Dr Cano to let him know med rec is complete and pt is requestion breathing treatment. Pt is GCS 15, talking full sentences, no resp distress. Report to Adelina SCHULTZ
--- NOTE | 2023-01-01 17:48 | NUR ---
Patient in room ED 8. I have received report from MARION Sahu in the ED and had the opportunity to ask questions and assume patient care.
--- NOTE | 2023-01-01 18:18 | NUR ---
Problems reprioritized. Patient report given, questions answered & plan of care reviewed with
--- NOTE | 2023-01-01 19:07 | NUR ---
Patient in room ORTHO 4009. I have received report from LEONEL DAVILA and had the opportunity to ask questions and assume patient care.
[2023-01-01] MEDS: ipratropium/albuterol 3ml nebule NEB SCH (20:24)
[2023-01-01] MEDS: carVEDilol 12.5mg tablet PO SCH (20:56)
[2023-01-01] MEDS: dabigatran 150mg capsule PO SCH (20:56)
[2023-01-01] MEDS ORDERED: ipratropium/albuterol 3ml nebule NEB PRN (21:00)
[2023-01-01] MEDS ORDERED: atorvastatin 20mg tablet PO SCH (21:00)
[2023-01-01] MEDS ORDERED: HYDROcodone/acetaminophen 10/325mg tab PO PRN (23:35)
[2023-01-02] VITALS (8 sets, daily range): BP systolic 126; BP diastolic 66; PULSE 81–85; RESP 18–22; TEMP 97.6; O2SAT 95–97
[2023-01-02] MEDS: sodium bicarbonate (8.4%) inj. 100 MEQ in dextrose 5%-water 1,000 ML IV SCH (01:02)
--- NOTE | 2023-01-02 06:44 | NUR ---
Problems reprioritized. Patient report given, questions answered & plan of care reviewed with TAPAN SCHULTZ.
[2023-01-02] MEDS: pantoprazole 40MG/NS 100ML BAG 100 ML IV SCH (07:03)
[2023-01-02] MEDS: ipratropium/albuterol 3ml nebule NEB SCH ×2 (07:23→13:05)
[2023-01-02 07:57] LABS: BASOPHILS # (AUTO) 0.1 X10'3 (0-0.2); BASOPHILS % (AUTO) 0.8 % (0-1); EOSINOPHILS # (AUTO) 0.3 X10'3 (0-0.9); EOSINOPHILS % (AUTO) 3.8 % (0-6); HEMATOCRIT 36.9 % (42.0-52.0); HEMOGLOBIN 12.4 g/dl (14.0-17.9); LYMPHOCYTES # (AUTO) 1.2 X10'3 (1.1-4.8); LYMPHOCYTES % (AUTO) 18.8 % (21-51); MEAN CORPUSCULAR HEMOGLOBIN 30.3 PG (27.0-31.0); MEAN CORPUSCULAR HGB CONC 33.6 g/dL (33.0-36.5); MEAN CORPUSCULAR VOLUME 90.4 FL (78-98); MEAN PLATELET VOLUME 8.7 FL (7.4-10.4); MONOCYTES # (AUTO) 1.1 X10'3 (0-0.9); MONOCYTES % (AUTO) 17.2 % (2-12); NEUTROPHILS # (AUTO) 3.9 X10'3 (1.8-7.7); NEUTROPHILS % (AUTO) 59.4 % (42-75); PLATELET COUNT 200 X10'3 (140-440); RED BLOOD COUNT 4.08 X10'6 (4.70-6.10); RED CELL DISTRIBUTION WIDTH 15.3 % (11.5-14.5); WHITE BLOOD COUNT 6.6 X10'3 (4.5-11.0)
[2023-01-02] MEDS ORDERED: potassium chloride 10mEq ER tablet PO SCH (08:00)
[2023-01-02] MEDS: docusate sod 100mg capsule PO SCH (08:00)
[2023-01-02] MEDS ORDERED: furosemide 20MG tablet PO SCH (08:00)
[2023-01-02] MEDS: K and/or MAG REPLACEMENT MC SCH (08:00)
[2023-01-02 08:27] LABS: ALANINE AMINOTRANSFERASE 11 U/L (12-78); ALBUMIN 2.6 G/DL (3.4-5.0); ALBUMIN/GLOBULIN RATIO 0.8 (1.1-1.5); ALKALINE PHOSPHATASE 65 IU/L (46-116); ANION GAP 10 (8-16); ASPARTATE AMINO TRANSFERASE 16 U/L (10-37); BILIRUBIN,TOTAL 0.8 MG/DL (0.1-1.0); BLOOD UREA NITROGEN 27 MG/DL (7-18); CALCIUM 7.2 MG/DL (8.5-10.1); CHLORIDE 105 MMOL/L (99-107); GLUCOSE 110 MG/DL (70-104); MAGNESIUM 1.6 MG/DL (1.5-2.4); PHOSPHORUS 2.3 MG/DL (2.3-4.5); POTASSIUM 3.8 MMOL/L (3.5-5.1); SODIUM 138 MMOL/L (135-145); TOTAL CARBON DIOXIDE 23.4 MMOL/L (24-32); TOTAL PROTEIN 5.8 G/DL (6.4-8.2); eCRCL 45 ML/MIN; eGFR 46 ML/MIN
[2023-01-02 09:06] LABS: TOTAL CELLS COUNTED 100
[2023-01-02] MEDS: carVEDilol 12.5mg tablet PO SCH (09:06)
[2023-01-02] MEDS: dabigatran 150mg capsule PO SCH (09:07)
[2023-01-02 09:08] LABS: ACANTHOCYTES 1+; BURR CELLS 1+; ELLIPTOCYTES 1+; PLATELET ESTIMATE NORMAL
--- NOTE | 2023-01-02 12:00 | NUR ---
Patient is agitated with length of time waiting for discharge. [employer] NURSE PRACTITIONER attempted to explain she is waiting for MD to enter discharge orders. Patient was very short with her. I attempted to explain she can not dc his IV until she has orders. This did not help calm him.
== END 2023-01-02 14:38 | disposition home or self-care (01) | DRG 640 ==
LOC: ER 14:59 → ED HOLD 01-01 01:31 → ORTHO 4S 01-01 18:01
PROVIDERS: ADMIT Internal Medicine; ATTEND Family Medicine
DX: E86.0 Dehydration (principal); N17.0 Acute kidney failure with tubular necrosis; E44.0 Moderate protein-calorie malnutrition; I13.0 Hypertensive heart and chronic kidney disease with heart failure and stage 1 through stage 4 chronic kidney disease, or unspecified chronic kidney disease; I50.40 Unspecified combined systolic (congestive) and diastolic (congestive) heart failure; I25.10 Atherosclerotic heart disease of native coronary artery without angina pectoris; E78.00 Pure hypercholesterolemia, unspecified; E83.42 Hypomagnesemia; E87.6 Hypokalemia; J44.9 Chronic obstructive pulmonary disease, unspecified; M54.2 Cervicalgia; K21.9 Gastro-esophageal reflux disease without esophagitis; F41.9 Anxiety disorder, unspecified; Z66 Do not resuscitate; I95.9 Hypotension, unspecified; I48.91 Unspecified atrial fibrillation; N18.9 Chronic kidney disease, unspecified; Z90.49 Acquired absence of other specified parts of digestive tract; I25.2 Old myocardial infarction; Z95.1 Presence of aortocoronary bypass graft; Z95.0 Presence of cardiac pacemaker; Z68.21 Body mass index [BMI] 21.0-21.9, adult; Z79.899 Other long term (current) drug therapy; Z82.0 Family history of epilepsy and other diseases of the nervous system
CPT/HCPCS: 36415; 71045; 72050; 72125; 80053; 80320; 81001; 82272; 82948; 83605; 83690; 83735; 84100; 84132; 84145; 84484; 85007; 85025; 85027; 87040; 87045; 87046; 87324; 87449; 89055; 93005; 94640; 94760; 96374; 99285; C9113; G0378; J2060; J2175; J2405; J3475; J3490; J7030; J7040; J7070

== ENCOUNTER 2023-01-19 06:24 | Emergency (ER) | payer MEDICARE, OTHER ==
[~2023-01-19] VITALS: Ht 177.8 cm; Wt 71.4 kg
[~2023-01-19 06:24] MED LIST changes: +DABI150C PO; -LISI40TA13 PO; -WARF-55 PO
[2023-01-19 08:42] LABS: BASOPHILS # (AUTO) 0.1 X10'3 (0-0.2); BASOPHILS % (AUTO) 1.3 % (0-1); EOSINOPHILS # (AUTO) 0.2 X10'3 (0-0.9); EOSINOPHILS % (AUTO) 3.5 % (0-6); HEMATOCRIT 35.1 % (42.0-52.0); HEMOGLOBIN 11.8 g/dl (14.0-17.9); LYMPHOCYTES # (AUTO) 1.4 X10'3 (1.1-4.8); LYMPHOCYTES % (AUTO) 19.9 % (21-51); MEAN CORPUSCULAR HEMOGLOBIN 30.1 PG (27.0-31.0); MEAN CORPUSCULAR HGB CONC 33.7 g/dL (33.0-36.5); MEAN CORPUSCULAR VOLUME 89.5 FL (78-98); MEAN PLATELET VOLUME 7.6 FL (7.4-10.4); MONOCYTES # (AUTO) 0.7 X10'3 (0-0.9); MONOCYTES % (AUTO) 10.5 % (2-12); NEUTROPHILS # (AUTO) 4.4 X10'3 (1.8-7.7); NEUTROPHILS % (AUTO) 64.8 % (42-75); PLATELET COUNT 261 X10'3 (140-440); RED BLOOD COUNT 3.92 X10'6 (4.70-6.10); RED CELL DISTRIBUTION WIDTH 15.2 % (11.5-14.5); WHITE BLOOD COUNT 6.8 X10'3 (4.5-11.0)
[2023-01-19 09:04] LABS: ALANINE AMINOTRANSFERASE 21 U/L (12-78); ALBUMIN 2.7 G/DL (3.4-5.0); ALBUMIN/GLOBULIN RATIO 0.7 (1.1-1.5); ALKALINE PHOSPHATASE 98 IU/L (46-116); ANION GAP 5 (8-16); ASPARTATE AMINO TRANSFERASE 27 U/L (10-37); BILIRUBIN,TOTAL 0.7 MG/DL (0.1-1.0); BLOOD UREA NITROGEN 14 MG/DL (7-18); BUN/CREATININE RATIO 11.4 (10.0-20.0); CALCIUM 6.8 MG/DL (8.5-10.1); CHLORIDE 104 MMOL/L (99-107); CREATININE 1.23 MG/DL (0.60-1.10); GLUCOSE 80 MG/DL (70-104); PRO BRAIN NATRIURETIC PEPTIDE 3395 PG/ML (0-125); SODIUM 139 MMOL/L (135-145); TOTAL CARBON DIOXIDE 30.1 MMOL/L (24-32); TOTAL PROTEIN 6.5 G/DL (6.4-8.2); eCRCL 57 ML/MIN; eGFR 58 ML/MIN
[2023-01-19 09:08] LABS: MAGNESIUM 0.7 MG/DL (1.5-2.4)
[2023-01-19] MEDS ORDERED: potassium Cl 20 mEq SR tablet PO STA (09:19)
[2023-01-19] MEDS ORDERED: potassium CL 10mEq/100ml bag 100 ML IV SCH (09:20)
[2023-01-19] MEDS ORDERED: magnesium 4gm in 100ml NS 100 ML IV ONE (09:20)
--- NOTE | 2023-01-19 09:20 | NUR ---
mag 0.7, k 3.0 Dr. Christie made aware.
[2023-01-19] MEDS ORDERED: normal saline 1000ml 1,000 ML IV ONE (09:35)
--- NOTE | 2023-01-19 09:47 | NUR ---
IV POTASSIUM INFUSING WITH NS FOR REPLACEMENT. POTASSIUM TABLETS GIVEN ORALLY FOR REPLACEMENT. MAGNESIUM WILL BE GIVEN WHEN POTASSIUM IS COMPLETED. PT HAS NO COMPLAINTS AT THIS TIME.
[2023-01-19] MEDS ORDERED: methylPREDNISolone sod succ 125mg/2ml vial IV ONE (10:20)
[2023-01-19] MEDS ORDERED: ipratropium/albuterol 3ml nebule NEB PRN (10:20)
--- NOTE | 2023-01-19 10:22 | NUR ---
NOTIFIED MD DR ANDERSON THAT PT IS C/O SOB ,HX OF COPD USES BREATHING TX 4-5 TIMES A DAY AND REQUESTING FOR BREATHING TX RGT NOW , PER HE WILL PUT THE ORDERS IN.
--- NOTE | 2023-01-19 10:34 | NUR ---
page rt for stat breathing tx.
[2023-01-19 10:40] VITALS: PULSE 11; PULSE 90; RESP 23; RESP 26; O2SAT 97
--- NOTE | 2023-01-19 10:59 | NUR ---
PT REPORTS THAT BREATHING TREATMENT REALLY IMPROVED HIS WORK OF BREATHING, PT SPEAKING IN FULL SENTENCES WITHOUT ACCESSORY MUSCLE USE.
[2023-01-19 12:44] LABS: MAGNESIUM 1.5 MG/DL (1.5-2.4); POTASSIUM 3.4 MMOL/L (3.5-5.1)
[2023-01-19] MEDS ORDERED: MAGN200T5 PO (13:18)
[2023-01-19] MEDS ORDERED: POTA-188 PO (13:18)
--- NOTE | 2023-01-19 13:23 | NUR ---
pt having lunch. all orders have been administered. mag and potassium replacement given, pt tolerated well. preparing to dc home.
[2023-01-19 13:42] VITALS: BP 129/72; PULSE 100; RESP 18; TEMP 97.5; O2SAT 94
== END 2023-01-19 13:45 | disposition home or self-care (01) ==
LOC: ER 06:25
DX: E87.6 Hypokalemia (principal); E83.42 Hypomagnesemia; I50.9 Heart failure, unspecified; R25.2 Cramp and spasm
CPT/HCPCS: 36415; 71045; 80053; 83735; 83880; 84132; 84484; 85025; 93005; 96365; 96368; 96375; 99285; J2930; J3475; J3480; J7030; 94760

== ENCOUNTER 2023-05-29 04:59 | Inpatient (IN) | payer MEDICARE, OTHER ==
[~2023-05-29] VITALS: Ht 177.8 cm; Wt 77.3 kg
[2023-05-29] VITALS (12 sets, daily range): BP systolic 125–156; BP diastolic 74–100; PULSE 88–123; RESP 20–33; TEMP 98–98.4; O2SAT 94–100
[~2023-05-29 04:59] MED LIST changes: -CARV25TA2 PO; +COR3.125T PO; -DABI150C PO; +ESCI-8 PO; +HYDR-3965 PO; +LOSA50TA64 PO; +MAGN400T52 PO; +PRED10TA PO; +WARF-65 PO; +WARF1TAB83 PO
[2023-05-29] MEDS ORDERED: azithromycin/NS 500mg/250ml 250 ML IV ONE (05:05)
[2023-05-29] MEDS: albuterol 2.5 MG/3 ML nebule CONTNEB PRN (05:24)
[2023-05-29] MEDS: ipratropium 0.5 MG/2.5ML nebule IH ONE (05:24)
[2023-05-29] MEDS: normal saline 1000ML IV soln IVB ONE ×2 (05:31→09:50)
[2023-05-29] MEDS: diltiazem 5mg/ml 5ml inj. IV ONE (05:31)
[2023-05-29] MEDS: methylPREDNISolone sod succ 125mg/2ml vial IV ONE (05:31)
[2023-05-29] MEDS: CefTRIAXone 2gm/D5W 50ml BAG 50 ML IV ONE (05:36)
[2023-05-29 05:46] LABS: ABG BASE EXCESS -5.9 mmol/L (-2.0-2.0); ABG HCO3 17.4 mmol/L (22.0-26.0); ABG OXYGEN SATURATION 92.3 % (94-97); ABG PCO2 (T) 28.3 mmHg (35.0-48.0); ABG PH (T) 7.407 (7.340-7.440); ABG PO2 (T) 62.2 mmHg (75.0-100.0); FCOHb 0.3 % (0.0-3.9); FHHb 7.7 % (0.0-5.0); FMetHb 0.2 % (0.0-1.5); FO2Hb 91.8 % (94-97); MODE MASK - BIPAP; TOTAL HEMOGLOBIN 12.7 G/dl (14.0-17.9)
[2023-05-29 05:56] LABS: BASOPHILS # (AUTO) 0.1 X10'3 (0-0.2); BASOPHILS % (AUTO) 0.6 % (0-1); EOSINOPHILS # (AUTO) 0.1 X10'3 (0-0.9); HEMATOCRIT 35.7 % (42.0-52.0); LYMPHOCYTES # (AUTO) 1.8 X10'3 (1.1-4.8); LYMPHOCYTES % (AUTO) 16.6 % (21-51); MEAN CORPUSCULAR HEMOGLOBIN 31.1 PG (27.0-31.0); MEAN CORPUSCULAR HGB CONC 33.6 g/dL (33.0-36.5); MEAN CORPUSCULAR VOLUME 92.6 FL (78-98); MONOCYTES % (AUTO) 8.9 % (2-12); NEUTROPHILS # (AUTO) 8.1 X10'3 (1.8-7.7); NEUTROPHILS % (AUTO) 72.9 % (42-75); PLATELET COUNT 289 X10'3 (140-440); RED BLOOD COUNT 3.85 X10'6 (4.70-6.10); RED CELL DISTRIBUTION WIDTH 15.2 % (11.5-14.5); WHITE BLOOD COUNT 11.1 X10'3 (4.5-11.0)
[2023-05-29 06:18] LABS: PLATELET ESTIMATE NORMAL; TOTAL CELLS COUNTED 100
[2023-05-29 06:21] LABS: BURR CELLS 1+; ELLIPTOCYTES FEW; POIKILOCYTOSIS 1+
[2023-05-29] MEDS: azithromycin/NS 500mg/250ml 250 ML IV ONE (06:58)
[2023-05-29] MEDS: LORazepam 2 mg/ml vial IV ONE (07:10)
[2023-05-29 09:25] LABS: INR 1.7 INR; PROTHROMBIN TIME 17.5 SECONDS (9.0-12.0)
[2023-05-29 09:29] LABS: ALBUMIN 2.9 G/DL (3.4-5.0); ANION GAP 7 (8-16); BLOOD UREA NITROGEN 20 MG/DL (7-18); BUN/CREATININE RATIO 15.2 (10.0-20.0); CALCIUM 8.3 MG/DL (8.5-10.1); CHLORIDE 108 MMOL/L (99-107); CREATININE 1.32 MG/DL (0.60-1.10); GLUCOSE 127 MG/DL (70-104); POTASSIUM 3.9 MMOL/L (3.5-5.1); SODIUM 145 MMOL/L (135-145); TOTAL CARBON DIOXIDE 30.1 MMOL/L (24-32); eCRCL 55 ML/MIN; eGFR 54 ML/MIN
[2023-05-29] MEDS: aspirin 81mg tab.chew PO ONE (09:45)
[2023-05-29 09:53] LABS: APTT 35 SECONDS (22-32)
[2023-05-29] MEDS ORDERED: ondansetron/PF 4mg/2ml inj IV PRN (10:15)
[2023-05-29] MEDS ORDERED: potassium Cl 40MEQ/1/2NS 520ml 520 ML IV PRN (10:15)
[2023-05-29] MEDS ORDERED: magnesium 4gm in 100ml NS 100 ML IV PRN (10:15)
[2023-05-29] MEDS ORDERED: magnesium Cl slow-release 64mg tablet PO PRN (10:15)
[2023-05-29] MEDS ORDERED: acetaminophen 325mg tablet PO PRN (10:15)
[2023-05-29] MEDS ORDERED: potassium Cl 20 mEq SR tablet PO PRN ×2 (10:15)
[2023-05-29] MEDS ORDERED: magnesium hydroxide 30ml (MOM) UD suspension PO PRN (10:15)
[2023-05-29] MEDS ORDERED: non-formulary drug (Warfarin Sodium 1 TAB) PO SCH (10:20)
[2023-05-29] MEDS ORDERED: albuterol 2.5 MG/3 ML nebule CONTNEB PRN (10:20)
[2023-05-29 11:16] LABS: INR 1.7 INR; PROTHROMBIN TIME 17.4 SECONDS (9.0-12.0)
[2023-05-29] MEDS: carVEDilol 3.125mg tablet PO SCH (20:45)
[2023-05-29] MEDS: atorvastatin 20mg tablet PO SCH (20:45)
[2023-05-29] MEDS: docusate sod 100mg capsule PO SCH (20:45)
[2023-05-29] MEDS: heparin, porcine 5000 units/ml vial SQ SCH (20:45)
[2023-05-29] MEDS: temazepam 15mg capsule PO PRN (20:45)
[2023-05-29] MEDS: methylPREDNISolone sod succ 125mg/2ml vial IV SCH (20:47)
[2023-05-29] MEDS: morphine 2 MG/ML inj. syringe IV PRN (20:48)
[2023-05-29] MEDS: ALBUTEROL SULFATE 90 MCG IH PRN (21:41)
[2023-05-30] VITALS (20 sets, daily range): BP systolic 127–164; BP diastolic 88–99; PULSE 8–108; RESP 18–29; TEMP 97–98.2; O2SAT 93–100
[2023-05-30] MEDS: levoTHYROXINE 25mcg tablet PO SCH (07:00)
[2023-05-30 07:10] LABS: BASOPHILS % (AUTO) 0.1 % (0-1); EOSINOPHILS % (AUTO) 0 % (0-6); HEMATOCRIT 32.2 % (42.0-52.0); LYMPHOCYTES # (AUTO) 0.8 X10'3 (1.1-4.8); MEAN CORPUSCULAR HEMOGLOBIN 31.7 PG (27.0-31.0); MEAN CORPUSCULAR HGB CONC 34.1 g/dL (33.0-36.5); MEAN CORPUSCULAR VOLUME 92.9 FL (78-98); MEAN PLATELET VOLUME 7.6 FL (7.4-10.4); MONOCYTES # (AUTO) 0.7 X10'3 (0-0.9); MONOCYTES % (AUTO) 6.7 % (2-12); NEUTROPHILS # (AUTO) 9.3 X10'3 (1.8-7.7); NEUTROPHILS % (AUTO) 86.2 % (42-75); PLATELET COUNT 230 X10'3 (140-440); RED BLOOD COUNT 3.47 X10'6 (4.70-6.10); RED CELL DISTRIBUTION WIDTH 15.4 % (11.5-14.5); WHITE BLOOD COUNT 10.8 X10'3 (4.5-11.0)
[2023-05-30 07:18] LABS: INR 1.5 INR; PROTHROMBIN TIME 16.1 SECONDS (9.0-12.0)
[2023-05-30 07:27] LABS: ALBUMIN 2.8 G/DL (3.4-5.0); ANION GAP 7 (8-16); BLOOD UREA NITROGEN 32 MG/DL (7-18); BUN/CREATININE RATIO 23.4 (10.0-20.0); CALCIUM 8.5 MG/DL (8.5-10.1); CHLORIDE 105 MMOL/L (99-107); CREATININE 1.37 MG/DL (0.60-1.10); GLUCOSE 173 MG/DL (70-104); POTASSIUM 4.8 MMOL/L (3.5-5.1); SODIUM 142 MMOL/L (135-145); TOTAL CARBON DIOXIDE 29.9 MMOL/L (24-32); eCRCL 53 ML/MIN; eGFR 52 ML/MIN
[2023-05-30] MEDS: CefTRIAXone 2gm/D5W 50ml BAG 50 ML IV SCH (07:37)
[2023-05-30] MEDS: azithromycin/NS 500mg/250ml 250 ML IV SCH (07:55)
[2023-05-30] MEDS: budesonide 0.5mg/2ml UD nebule IH SCH (08:00)
[2023-05-30] MEDS ORDERED: warfarin 1mg tablet PO SCH (08:00)
[2023-05-30] MEDS: losartan 50mg tablet PO SCH (08:53)
[2023-05-30] MEDS: ESCITALOPRAM 10 mg tablet 10 MG TABLET PO SCH (08:54)
[2023-05-30] MEDS: magnesium oxide 400mg tablet PO SCH (08:55)
[2023-05-30] MEDS ORDERED: dexamethasone 4mg tablet PO SCH (11:40)
[2023-05-30] MEDS: REMDESIVIR 200 MG in NS 100ml IVPB Loading dose IV ONE (11:40)
[2023-05-30] MEDS: chlordiazePOXIDE 5mg capsule PO PRN (15:16)
[2023-05-30] MEDS: ipratropium/albuterol 3ml nebule NEB PRN (17:21)
[2023-05-30] MEDS: furosemide 20MG tablet PO SCH (17:42)
[2023-05-31] VITALS (15 sets, daily range): BP systolic 147–159; BP diastolic 64–116; PULSE 87–118; RESP 14–23; TEMP 97.6–100.5; O2SAT 95–99
[2023-05-31 06:39] LABS: BASOPHILS % (AUTO) 0 % (0-1); EOSINOPHILS % (AUTO) 0 % (0-6); HEMATOCRIT 33.7 % (42.0-52.0); HEMOGLOBIN 11.4 g/dl (14.0-17.9); LYMPHOCYTES # (AUTO) 1.1 X10'3 (1.1-4.8); LYMPHOCYTES % (AUTO) 8.1 % (21-51); MEAN CORPUSCULAR HEMOGLOBIN 31.2 PG (27.0-31.0); MEAN CORPUSCULAR HGB CONC 33.7 g/dL (33.0-36.5); MEAN CORPUSCULAR VOLUME 92.7 FL (78-98); MEAN PLATELET VOLUME 7.6 FL (7.4-10.4); MONOCYTES # (AUTO) 0.9 X10'3 (0-0.9); MONOCYTES % (AUTO) 6.4 % (2-12); NEUTROPHILS # (AUTO) 12.2 X10'3 (1.8-7.7); NEUTROPHILS % (AUTO) 85.5 % (42-75); PLATELET COUNT 260 X10'3 (140-440); RED BLOOD COUNT 3.64 X10'6 (4.70-6.10); RED CELL DISTRIBUTION WIDTH 15.8 % (11.5-14.5); WHITE BLOOD COUNT 14.3 X10'3 (4.5-11.0)
[2023-05-31 06:51] LABS: INR 1.4 INR; PROTHROMBIN TIME 14.6 SECONDS (9.0-12.0)
[2023-05-31 06:53] LABS: ALBUMIN 2.8 G/DL (3.4-5.0); ANION GAP 9 (8-16); BLOOD UREA NITROGEN 39 MG/DL (7-18); BUN/CREATININE RATIO 27.3 (10.0-20.0); CALCIUM 8.3 MG/DL (8.5-10.1); CHLORIDE 103 MMOL/L (99-107); CREATININE 1.43 MG/DL (0.60-1.10); GLUCOSE 114 MG/DL (70-104); POTASSIUM 4.3 MMOL/L (3.5-5.1); SODIUM 139 MMOL/L (135-145); eCRCL 50 ML/MIN; eGFR 49 ML/MIN
[2023-05-31] MEDS: REMDESIVIR 100 MG in NS 100ml IVPB IV SCH (07:30)
[2023-05-31] MEDS: DEXAMETHASONE 6 MG TABLET PO SCH (07:31)
[2023-05-31] MEDS: BUDESONIDE 180 MCG AER.POW.BA INH SCH (11:30)
[2023-05-31 13:41] LABS: D-DIMER 0.31 MG/L FEU (0-0.50)
[2023-05-31] MEDS: enoxaparin 40mg/0.4ml syringe SUBCUT SCH (19:28)
[2023-06-01] VITALS (15 sets, daily range): BP systolic 111–157; BP diastolic 69–92; PULSE 80–110; RESP 14–20; TEMP 97.8–98.3; O2SAT 93–98
[2023-06-01 08:55] LABS: BASOPHILS % (AUTO) 0.2 % (0-1); EOSINOPHILS % (AUTO) 0.1 % (0-6); HEMATOCRIT 34.2 % (42.0-52.0); HEMOGLOBIN 11.5 g/dl (14.0-17.9); LYMPHOCYTES # (AUTO) 1.2 X10'3 (1.1-4.8); LYMPHOCYTES % (AUTO) 10.8 % (21-51); MEAN CORPUSCULAR HEMOGLOBIN 31.1 PG (27.0-31.0); MEAN CORPUSCULAR HGB CONC 33.7 g/dL (33.0-36.5); MEAN CORPUSCULAR VOLUME 92.2 FL (78-98); MEAN PLATELET VOLUME 7.8 FL (7.4-10.4); MONOCYTES % (AUTO) 8.8 % (2-12); NEUTROPHILS # (AUTO) 8.9 X10'3 (1.8-7.7); NEUTROPHILS % (AUTO) 80.1 % (42-75); PLATELET COUNT 228 X10'3 (140-440); RED BLOOD COUNT 3.71 X10'6 (4.70-6.10); RED CELL DISTRIBUTION WIDTH 15.6 % (11.5-14.5); WHITE BLOOD COUNT 11.1 X10'3 (4.5-11.0)
[2023-06-01 09:12] LABS: INR 1.3 INR
[2023-06-01 09:19] LABS: ALBUMIN 2.7 G/DL (3.4-5.0); ANION GAP 8 (8-16); BLOOD UREA NITROGEN 41 MG/DL (7-18); CALCIUM 8.3 MG/DL (8.5-10.1); CHLORIDE 102 MMOL/L (99-107); CREATININE 1.14 MG/DL (0.60-1.10); GLUCOSE 82 MG/DL (70-104); POTASSIUM 3.9 MMOL/L (3.5-5.1); SODIUM 140 MMOL/L (135-145); TOTAL CARBON DIOXIDE 29.7 MMOL/L (24-32); eCRCL 63 ML/MIN; eGFR 64 ML/MIN
[2023-06-01] MEDS: HYDROcodone/acetaminophen 5mg/325mg tablet PO PRN (09:40)
[2023-06-01] MEDS: mag hydrox/Alum hydrox/simeth 30ml oral suspension PO PRN (11:10)
[2023-06-01 11:42] LABS: MAGNESIUM 1.9 MG/DL (1.5-2.4)
[2023-06-01] MEDS: LORazepam 2 mg/ml vial IV PRN (13:09)
[2023-06-02] VITALS (12 sets, daily range): BP systolic 125–153; BP diastolic 63–101; PULSE 79–94; RESP 16–22; TEMP 97.5–98.3; O2SAT 93–98
[2023-06-02 08:39] LABS: ALBUMIN 2.9 G/DL (3.4-5.0); ANION GAP 7 (8-16); BASOPHILS % (AUTO) 0.4 % (0-1); BLOOD UREA NITROGEN 44 MG/DL (7-18); BUN/CREATININE RATIO 37.6 (10.0-20.0); CALCIUM 8.6 MG/DL (8.5-10.1); CHLORIDE 103 MMOL/L (99-107); CREATININE 1.17 MG/DL (0.60-1.10); EOSINOPHILS % (AUTO) 0 % (0-6); GLUCOSE 100 MG/DL (70-104); HEMATOCRIT 37.7 % (42.0-52.0); HEMOGLOBIN 12.6 g/dl (14.0-17.9); LYMPHOCYTES # (AUTO) 1.2 X10'3 (1.1-4.8); LYMPHOCYTES % (AUTO) 9.9 % (21-51); MEAN CORPUSCULAR HEMOGLOBIN 30.6 PG (27.0-31.0); MEAN CORPUSCULAR HGB CONC 33.4 g/dL (33.0-36.5); MEAN CORPUSCULAR VOLUME 91.7 FL (78-98); MEAN PLATELET VOLUME 7.7 FL (7.4-10.4); MONOCYTES # (AUTO) 1.1 X10'3 (0-0.9); MONOCYTES % (AUTO) 9.2 % (2-12); NEUTROPHILS # (AUTO) 9.3 X10'3 (1.8-7.7); NEUTROPHILS % (AUTO) 80.5 % (42-75); PLATELET COUNT 237 X10'3 (140-440); POTASSIUM 4.3 MMOL/L (3.5-5.1); RED BLOOD COUNT 4.11 X10'6 (4.70-6.10); RED CELL DISTRIBUTION WIDTH 15.4 % (11.5-14.5); SODIUM 140 MMOL/L (135-145); TOTAL CARBON DIOXIDE 30.2 MMOL/L (24-32); WHITE BLOOD COUNT 11.6 X10'3 (4.5-11.0); eCRCL 62 ML/MIN; eGFR 62 ML/MIN
[2023-06-02 09:33] LABS: NUCLEATED RED BLOOD CELLS 1 /100WBC (0-0); TOTAL CELLS COUNTED 100
[2023-06-02 09:34] LABS: PLATELET ESTIMATE NORMAL
[2023-06-02 09:35] LABS: BURR CELLS FEW; ELLIPTOCYTES FEW; POLYCHROMASIA FEW
[2023-06-02] MEDS: furosemide 20MG tablet PO SCH (11:24)
[2023-06-03] VITALS (7 sets, daily range): BP systolic 141–152; BP diastolic 61–88; PULSE 70–87; RESP 16–20; TEMP 97.6–98.6; O2SAT 95–97
[2023-06-03 06:34] LABS: BASOPHILS # (AUTO) 0.1 X10'3 (0-0.2); BASOPHILS % (AUTO) 0.8 % (0-1); EOSINOPHILS % (AUTO) 0.2 % (0-6); HEMATOCRIT 34.7 % (42.0-52.0); HEMOGLOBIN 12.1 g/dl (14.0-17.9); LYMPHOCYTES # (AUTO) 1.3 X10'3 (1.1-4.8); LYMPHOCYTES % (AUTO) 11.2 % (21-51); MEAN CORPUSCULAR HEMOGLOBIN 31.6 PG (27.0-31.0); MEAN CORPUSCULAR HGB CONC 34.9 g/dL (33.0-36.5); MEAN CORPUSCULAR VOLUME 90.7 FL (78-98); MEAN PLATELET VOLUME 7.5 FL (7.4-10.4); MONOCYTES # (AUTO) 1.2 X10'3 (0-0.9); MONOCYTES % (AUTO) 9.7 % (2-12); NEUTROPHILS # (AUTO) 9.4 X10'3 (1.8-7.7); NEUTROPHILS % (AUTO) 78.1 % (42-75); PLATELET COUNT 216 X10'3 (140-440); RED BLOOD COUNT 3.82 X10'6 (4.70-6.10); RED CELL DISTRIBUTION WIDTH 15.2 % (11.5-14.5); WHITE BLOOD COUNT 12.1 X10'3 (4.5-11.0)
[2023-06-03 06:58] LABS: ALBUMIN 2.7 G/DL (3.4-5.0); ANION GAP 7 (8-16); BLOOD UREA NITROGEN 42 MG/DL (7-18); BUN/CREATININE RATIO 36.8 (10.0-20.0); CALCIUM 8.4 MG/DL (8.5-10.1); CHLORIDE 106 MMOL/L (99-107); CREATININE 1.14 MG/DL (0.60-1.10); GLUCOSE 100 MG/DL (70-104); POTASSIUM 4.4 MMOL/L (3.5-5.1); SODIUM 142 MMOL/L (135-145); TOTAL CARBON DIOXIDE 29.3 MMOL/L (24-32); eCRCL 63 ML/MIN; eGFR 64 ML/MIN
[2023-06-03] MEDS ORDERED: HYDROcodone/acetaminophen 5mg/325mg tablet PO PRN (08:30)
[2023-06-03] MEDS ORDERED: LORazepam 2 mg/ml vial IV PRN (11:25)
[2023-06-03] MEDS ORDERED: CHLO5CAP3 PO (12:42)
[2023-06-03] MEDS ORDERED: DEXA6TAB PO ×3 (12:42→15:10)
[2023-06-03] MEDS ORDERED: ALBU8HFA PO (15:12)
[2023-06-03] MEDS ORDERED: CHLO25CA10 PO (15:12)
== END 2023-06-03 17:57 | disposition home health service (06) | DRG 177 ==
LOC: ER 07:24 → ED HOLD 10:16 → UNDOADMIN 10:16 → PCU 3S 17:10 → ED HOLD 17:10 → PCU 3S 05-30 14:21 → UNDODISIN 06-03 16:51
PROVIDERS: ADMIT Internal Medicine; ATTEND Internal Medicine
PROC: XW033E5 Introduction of Remdesivir Anti-infective into Peripheral Vein, Percutaneous Approach, New Technology Group 5 (ICD-10-PCS; principal; 2023-05-30)
PROC: 5A09357 Assistance with Respiratory Ventilation, Less than 24 Consecutive Hours, Continuous Positive Airway Pressure (ICD-10-PCS; 2023-05-30)
DX: U07.1 COVID-19 (principal); J96.21 Acute and chronic respiratory failure with hypoxia; I13.0 Hypertensive heart and chronic kidney disease with heart failure and stage 1 through stage 4 chronic kidney disease, or unspecified chronic kidney disease; I50.20 Unspecified systolic (congestive) heart failure; J44.1 Chronic obstructive pulmonary disease with (acute) exacerbation; Z66 Do not resuscitate; I48.91 Unspecified atrial fibrillation; I27.20 Pulmonary hypertension, unspecified; K21.9 Gastro-esophageal reflux disease without esophagitis; N18.9 Chronic kidney disease, unspecified; E03.9 Hypothyroidism, unspecified; F32.A Depression, unspecified; E78.00 Pure hypercholesterolemia, unspecified; F41.9 Anxiety disorder, unspecified; I73.9 Peripheral vascular disease, unspecified; F10.90 Alcohol use, unspecified, uncomplicated; I25.10 Atherosclerotic heart disease of native coronary artery without angina pectoris; I25.2 Old myocardial infarction; Z87.891 Personal history of nicotine dependence; Z90.49 Acquired absence of other specified parts of digestive tract; Z95.1 Presence of aortocoronary bypass graft; Z88.5 Allergy status to narcotic agent; Z79.01 Long term (current) use of anticoagulants; Z79.899 Other long term (current) drug therapy
CPT/HCPCS: 36415; 36600; 71045; 80048; 82803; 83605; 83735; 84484; 85007; 85018; 85025; 85379; 85610; 85730; 87040; 87081; 87502; 87503; 87811; 93005; 94640; 94660; 94760; 99285; A6258; A7015; G0378; J0456; J0696; J2060; J2270; J2930; J3490; J7030; J7040; J8540

== ENCOUNTER 2023-09-15 04:52 | Emergency (ER) | payer MEDICARE, OTHER ==
[~2023-09-15] VITALS: Ht 177.8 cm; Wt 72.7 kg
[~2023-09-15 04:52] MED LIST changes: +CHLO25CA10 PO; +DEXA6TAB PO; -HYDR-3965 PO; -PRED10TA PO
[2023-09-15 05:01] VITALS: TEMP 98.2
[2023-09-15] MEDS: HYDROcodone/acetaminophen 5mg/325mg tablet PO ONE (06:56)
[2023-09-15 06:57] VITALS: PULSE 78; RESP 18; O2SAT 95
[2023-09-15] MEDS: ipratropium/albuterol 3ml nebule NEB ONE (06:57)
[2023-09-15 07:04] VITALS: PULSE 76; RESP 21; O2SAT 99
[2023-09-15 08:44] VITALS: BP 136/74; PULSE 84; RESP 18; O2SAT 95
== END 2023-09-15 08:43 | disposition home or self-care (01) ==
LOC: ER 04:53
DX: S62.614A Displaced fracture of proximal phalanx of right ring finger, initial encounter for closed fracture (principal); S62.616A Displaced fracture of proximal phalanx of right little finger, initial encounter for closed fracture; I48.91 Unspecified atrial fibrillation; I25.10 Atherosclerotic heart disease of native coronary artery without angina pectoris; I11.0 Hypertensive heart disease with heart failure; I50.9 Heart failure, unspecified; E78.00 Pure hypercholesterolemia, unspecified; J44.9 Chronic obstructive pulmonary disease, unspecified; K21.9 Gastro-esophageal reflux disease without esophagitis; F41.9 Anxiety disorder, unspecified; F12.90 Cannabis use, unspecified, uncomplicated; Z88.5 Allergy status to narcotic agent; Z79.899 Other long term (current) drug therapy; Z98.890 Other specified postprocedural states; W01.0XXA Fall on same level from slipping, tripping and stumbling without subsequent striking against object, initial encounter; Y93.89 Activity, other specified; Y92.89 Other specified places as the place of occurrence of the external cause; Y99.8 Other external cause status
CPT/HCPCS: 29125; 73110; 73130; 94640; 99284; Z7610; 94760

== ENCOUNTER 2024-04-19 12:29 | Emergency (ER) | payer MEDICARE, OTHER ==
[~2024-04-19] VITALS: Ht 177.8 cm; Wt 72.3 kg
[~2024-04-19 12:29] MED LIST changes: +CARV3.1232 PO; -COR3.125T PO
[2024-04-19 12:52] LABS: BASOPHILS # (AUTO) 0.1 X10'3 (0-0.2); BASOPHILS % (AUTO) 0.8 % (0-1); EOSINOPHILS # (AUTO) 0.1 X10'3 (0-0.9); EOSINOPHILS % (AUTO) 0.7 % (0-6); HEMATOCRIT 39.8 % (42.0-52.0); LYMPHOCYTES # (AUTO) 0.9 X10'3 (1.1-4.8); LYMPHOCYTES % (AUTO) 11.5 % (21-51); MEAN CORPUSCULAR HEMOGLOBIN 31.2 PG (27.0-31.0); MEAN CORPUSCULAR HGB CONC 32.6 g/dL (33.0-36.5); MEAN CORPUSCULAR VOLUME 95.8 FL (78-98); MEAN PLATELET VOLUME 7.2 FL (7.4-10.4); MONOCYTES # (AUTO) 0.3 X10'3 (0-0.9); NEUTROPHILS # (AUTO) 6.4 X10'3 (1.8-7.7); PLATELET COUNT 412 X10'3 (140-440); RED BLOOD COUNT 4.16 X10'6 (4.70-6.10); RED CELL DISTRIBUTION WIDTH 16.2 % (11.5-14.5); WHITE BLOOD COUNT 7.7 X10'3 (4.5-11.0)
[2024-04-19 13:30] LABS: ALANINE AMINOTRANSFERASE 21 U/L (12-78); ALBUMIN 3.6 G/DL (3.4-5.0); ALBUMIN/GLOBULIN RATIO 0.9 (1.1-1.5); ALKALINE PHOSPHATASE 104 IU/L (46-116); ANION GAP 5 (8-16); ASPARTATE AMINO TRANSFERASE 18 U/L (10-37); BILIRUBIN,TOTAL 1.2 MG/DL (0.1-1.0); BLOOD UREA NITROGEN 15 MG/DL (7-18); BUN/CREATININE RATIO 13.2 (10.0-20.0); CALCIUM 9.2 MG/DL (8.5-10.1); CHLORIDE 104 MMOL/L (99-107); CREATININE 1.14 MG/DL (0.60-1.10); GLUCOSE 141 MG/DL (70-104); POTASSIUM 4.7 MMOL/L (3.5-5.1); SODIUM 141 MMOL/L (135-145); TOTAL CARBON DIOXIDE 32.2 MMOL/L (24-32); TOTAL PROTEIN 7.4 G/DL (6.4-8.2); eCRCL 62 ML/MIN; eGFR 64 ML/MIN
[2024-04-19 13:37] LABS: PRO BRAIN NATRIURETIC PEPTIDE 4648 PG/ML (0-125)
[2024-04-19] MEDS: morphine 4 MG/ML inj SYRINge IV ONE (14:32)
[2024-04-19] MEDS ORDERED: iohexol 350MG/ML 100ml bottle IV ONE (16:03)
[2024-04-19] MEDS: HYDROmorphone 1 mg/ml syringe IV ONE (17:53)
[2024-04-19] MEDS: dexamethasone sod phosphate 10mg/ml inj IV STA (17:53)
[2024-04-19] MEDS ORDERED: OXYC-145 PO (18:24)
[2024-04-19 18:50] VITALS: BP 125/61; PULSE 70; TEMP 97.4; O2SAT 97
[2024-04-19 18:56] VITALS: RESP 16
[2024-04-19] MEDS: oxyCODONE/APAP 5-325mg tablet PO ONE (18:56)
== END 2024-04-19 19:00 | disposition home or self-care (01) ==
LOC: ER 12:31
DX: S22.009A Unspecified fracture of unspecified thoracic vertebra, initial encounter for closed fracture (principal); S32.009A Unspecified fracture of unspecified lumbar vertebra, initial encounter for closed fracture; I48.91 Unspecified atrial fibrillation; I25.10 Atherosclerotic heart disease of native coronary artery without angina pectoris; I25.2 Old myocardial infarction; I50.9 Heart failure, unspecified; J44.9 Chronic obstructive pulmonary disease, unspecified; I11.0 Hypertensive heart disease with heart failure; E78.00 Pure hypercholesterolemia, unspecified; G89.29 Other chronic pain; K21.9 Gastro-esophageal reflux disease without esophagitis; Z88.5 Allergy status to narcotic agent; Z79.899 Other long term (current) drug therapy; Z90.49 Acquired absence of other specified parts of digestive tract; Z95.0 Presence of cardiac pacemaker; Z95.1 Presence of aortocoronary bypass graft; X58.XXXA Exposure to other specified factors, initial encounter; Y93.89 Activity, other specified; Y92.89 Other specified places as the place of occurrence of the external cause; Y99.8 Other external cause status
CPT/HCPCS: 36415; 71045; 71275; 80053; 83880; 84484; 85025; 93005; 96374; 96375; 99285; J1100; J1171; J2270; Q9967